=== PATIENT | female | born 1945 | race Two or more races ===

== ENCOUNTER 2019-09-24 06:02 | Inpatient (IN) | payer MEDICARE, MEDICAID ==
[2019-09-24] VITALS (32 sets, daily range): BP systolic 86–178; BP diastolic 35–80
[~2019-09-24] VITALS: Ht 162.6 cm; Wt 91.2 kg
--- NOTE | 2019-09-24 06:15 | NUR ---
kailash from dialysis center reporting low BP during HD. pt received 18 min of dialysis w/ no output. pt vant dependent, trach and gt in place. w/ HD access on the TRUDI. no bleeding noted at this time. placed on a monitor . RT was called
[2019-09-24] MEDS ORDERED: IV NS 0.9% 500 ML BAG IV ONE ×2 (06:30→08:00)
[2019-09-24 06:31] LABS: BASOPHILS # (AUTO) 0.1 /CMM (0.0-0.2); BASOPHILS % (AUTO) 0.3 % (0.0-2.0); HEMATOCRIT 31 % (33-45); LYMPHOCYTES # (AUTO) 1.1 /CMM (0.8-4.8); LYMPHOCYTES % (AUTO) 3.4 % (20.0-44.0); MEAN CORPUSCULAR HGB CONC 32 g/dl (31.0-36.0); MEAN CORPUSCULAR VOLUME 92 fL (82-100); MONOCYTES # (AUTO) 2.8 /CMM (0.1-1.30); MONOCYTES % (AUTO) 8.2 % (2.0-12.0); NEUTROPHILS % (AUTO) 88.1 % (43.0-81.0); PLATELET COUNT (AUTO) 119 /CMM (150-450); RED BLOOD CELL COUNT(AUTO) 3.35 MIL/uL (4.0-5.2)
[2019-09-24] MEDS ORDERED: PIPERACILLIN /TAZOBACTAM 3.375 G VIAL IV ONE (06:45)
[2019-09-24] MEDS ORDERED: VANCOMYCIN 1 GM VIAL ONE (06:46)
[2019-09-24 06:50] LABS: ALANINE AMINOTRANSFERASE 15 U/L (12-78); ALBUMIN 3.3 g/dL (3.4-5.0); ALKALINE PHOSPHATASE 233 U/L (46-116); ASPARTATE AMINOTRANSFERASE 14 U/L (15-37); BILIRUBIN,DIRECT 0.4 mg/dL (0.0-0.2); CALCIUM, SERUM 8.6 mg/dL (8.5-10.1); CARBON DIOXIDE 28 mmol/L (21-32); CHLORIDE 102 mmol/L (98-107); CREATININE 3.4 mg/dL (0.6-1.3); GLUCOSE 150 mg/dL (74-106); LIPASE 46 U/L (73-393); POTASSIUM 3.6 mmol/L (3.5-5.1); SODIUM SERUM 139 mmol/L (136-145); TOTAL PROTEIN, SERUM 7.2 g/dL (6.4-8.2); UREA NITROGEN, BLOOD 37 mg/dL (7-18)
--- NOTE | 2019-09-24 06:50 | NUR ---
end time for zosyn: 0720 r hand 20g
[2019-09-24] MEDS ORDERED: PIPERACILLIN /TAZOBACTAM 3.375 G in IV D5W 50 ML IV ONE (07:00)
[2019-09-24] MEDS ORDERED: VANCOMYCIN 1 GM in IV D5W 250 ML IV ONE (07:00)
--- NOTE | 2019-09-24 07:21 | NUR ---
RECEIVED REPORT FROM CHRISTINA MAN FOR JOHN, PT IS AAOX1 RESPONSIVE TO VOICE, ON MECH VENT VIA TRACH, KEPT RESTED AND COMFORTABLE, WILL CONTINUE TO MONITOR, AWAITING ROOM FOR ADMISSION.
[2019-09-24 07:28] LABS: BAND % (MANUAL) 22 % (0.0-5.0); LYMPHOCYTES % (MANUAL) 2 % (16-48); MONOCYTES % (MANUAL) 8 % (0-11.0); NEUTROPHILS % (MANUAL) 68 (42-76)
--- NOTE | 2019-09-24 07:28 | NUR ---
SECOND IV LINE ESTABLISHED, Sandra8 R AC.
--- NOTE | 2019-09-24 07:38 | NUR ---
PAGED DR. BLAISE BLANCO DIRECTOR AGENCY & STRATEGIC PARTNERSHIPS.
--- NOTE | 2019-09-24 07:50 | NUR ---
CALLED NURSING SUP FOR ICU BED.
[2019-09-24] MEDS ORDERED: IV NS 0.9% 1,000 ML BAG IV ONE (09:00)
--- NOTE | 2019-09-24 09:20 | NUR ---
AT BEDSIDE FOR EVAL
--- NOTE | 2019-09-24 09:21 | NUR ---
PT'S VITALS UPDATED. DR MENDEZ AWARE.
--- NOTE | 2019-09-24 09:25 | NUR ---
CHANGE PEEP TO 0 PER .
[2019-09-24] MEDS ORDERED: ACET-73 GT (09:31)
[2019-09-24] MEDS ORDERED: LABE100T5 GT (09:31)
[2019-09-24] MEDS ORDERED: NA P133E RC (09:31)
[2019-09-24] MEDS ORDERED: FAMO20TA8 GT (09:31)
[2019-09-24] MEDS ORDERED: SEVE800T8 GT (09:31)
[2019-09-24] MEDS ORDERED: ACET325T53 GT (09:31)
[2019-09-24] MEDS ORDERED: APIX2.5T GT (09:31)
[2019-09-24] MEDS ORDERED: BISA10SU61 RC (09:31)
[2019-09-24] MEDS ORDERED: DEXT15DR6 OP (09:31)
[2019-09-24] MEDS ORDERED: *INS NOVA SQ (09:31)
[2019-09-24] MEDS ORDERED: INSU100V7 SQ (09:31)
[2019-09-24] MEDS ORDERED: FOLI0.8T2 GT (09:31)
[2019-09-24] MEDS ORDERED: MINO2.5T GT (09:31)
--- NOTE | 2019-09-24 09:35 | NUR ---
ASSESSED PT ON BED, AAOX1 RESPONSE TO VOICE, V/S STABLE, KEPT RESTED AND COMFORTABLE, WILL CONTINUE TO MONITOR.
--- NOTE | 2019-09-24 09:43 | NUR ---
RT AT BEDSIDE FOR ABG.
[2019-09-24 09:54] LABS: ABG BASE EXCESS -1.9 mmol/L; ABG OXYGEN SATURATION 94.5 % (92.0-98.5); ABG PCO2 48.2 mmHg (35.0-45.0); ABG PH 7.321 (7.350-7.450); AaDO2 77.3 mmHg; COHb 0.9 % (0.5-1.5); MetHb 0.2 % (0.0-1.5); O2Hb 93.5 % (94.0-97.0); SITE, ABG Left Radial; VENT MODE, BG AC 10 500 30% 0
[2019-09-24 10:02] LABS: IRON, SERUM 20 ug/dl (50-175); TOTAL IRON BINDING CAPACITY 174 ug/dl (250-450)
--- NOTE | 2019-09-24 10:06 | NUR ---
ICU/RN: Pt received from ER via gurney, no distress noted, able to communicate needs. IV HL x2 on R arm patent, flushed. TRUDI AV shunt in place with C-clamp from HD center. Dr Rodríguez paged for orders. HD RN Alexis notified of dialysis pt arrival with C-clamp, RN to see pt shortly.
--- NOTE | 2019-09-24 10:06 | NUR ---
PATIENT TRANSPORTED TO ICU. HAND OFF REPORT GIVEN TO ROBERT HANKINS
[2019-09-24 10:17] LABS: FERRITIN 826 ng/mL (8-388); THYROID STIMULATING HORMONE 12.313 uIU/mL (0.358-3.74)
[2019-09-24] MEDS: HYDROCORTISONE SOD SUCCINATE 100 MG/2 ML VIAL IV SCH ×3 (10:52→16:12)
--- NOTE | 2019-09-24 10:56 | NUR ---
VENT CHANGES BELLOW MADE PER DR. PINEDA: FIO2 100% PEEP +8 Addendum: 09/24/19 at 1057 by ROBERT STOLL RT Amended: Links added.
[2019-09-24] MEDS ORDERED: PROPOFOL 100 ML IV PRN (11:00)
--- NOTE | 2019-09-24 11:00 | NUR ---
ICU/RN: Pt noted tachypneic, anxious, O2 sat in 60-70's despite airway clearance of secretions. FiO2 increased to 100%. Dr Beckman notified with orders for Diprivan, vent changes and repeat ABG. Noted and carried out.
[2019-09-24] MEDS: Z GUARD REMEDY 2 OZ OINT TP SCH (11:51)
[2019-09-24] MEDS: FLUDROCORTISONE 0.1 MG TABLET PO SCH ×2 (11:52→17:42)
[2019-09-24 12:21] LABS: ABG BASE EXCESS -2.9 mmol/L; ABG OXYGEN SATURATION 98.9 % (92.0-98.5); ABG PCO2 45.1 mmHg (35.0-45.0); ABG PH 7.327 (7.350-7.450); ABG PO2 462.5 mmHg (75.0-100.0); AaDO2 205.4 mmHg; COHb 0.3 % (0.5-1.5); MetHb 0.5 % (0.0-1.5); O2Hb 98.1 % (94.0-97.0); PEEP,BG 8 cm H2O; SITE, ABG A-Line; VT, ABG 500 mL
[2019-09-24] MEDS ORDERED: ACETAMINOPHEN 650 MG/SUPP.RECT RC PRN (12:30)
[2019-09-24] MEDS ORDERED: NOREPINEPHRINE 8 MG in IV D5W 500 ML IV PRN (12:30)
--- NOTE | 2019-09-24 12:30 | NUR ---
ICU/RN: Pt tolerating current vent settings, sedation off at this time. Breathing even and unlabored, denies pain and discomfort. Following commands, communicates needs and oriented to unit.
[2019-09-24] MEDS: PANTOPRAZOLE 40 MG VIAL IV SCH (12:49)
[2019-09-24] MEDS ORDERED: FEE PK DOSING 1 MIN EA MC ONE (12:55)
--- NOTE | 2019-09-24 12:55 | NUR ---
vent dorie k[place] per dr. darden: CESILIA 16 fio2 50% Addendum: 09/24/19 at 1256 by ROBERT STOLL RT Amended: Links added.
[2019-09-24] MEDS ORDERED: IV NS 0.9% 1,000 ML BAG IV SCH (13:00)
[2019-09-24] MEDS: MEROPENEM 500 MG in IV NS 0.9% 50 ML IV SCH (13:58)
--- NOTE | 2019-09-24 14:00 | NUR ---
ICU/RN: S/P Midline insertion. Pt hemodynamically stable. TRUDI AV shunt bruit and thrill present. Son at bedside. Questions answered. Pt turned and repositioned for comfort and skin protection.
[2019-09-24] MEDS: LACTOBACILLUS RHAMNOSUS GG 1 EACH CAP.SPRINK PO SCH (16:12)
[2019-09-24] MEDS: IV NS 0.9% 1,000 ML IV PRN (17:37)
--- NOTE | 2019-09-24 18:43 | NUR ---
ICU/RN: Pt s/b Ned, MISSILE INSPECTOR for ID consult. Updated on pt status. Pt remains afebrile, no pressors required for BP management.
--- NOTE | 2019-09-24 19:39 | NUR ---
PT RECEIVED TRACHED PORTEX 8 ON MECHANICAL VENTILATION WITH NOTED SETTINGS. PT IS AWAKE AND ALERT. AMBU BAG @ BEDSIDE. SX DONE, TRACH SECURED AND PATENT. ALARMS ON AND AUDIBLE. VENT PLUGGED INTO RED OUTLET. NO SOB OR RESPIRATORY DISTRESS NOTED AT THIS TIME. WILL MONITOR T/O SHIFT.
--- NOTE | 2019-09-24 20:00 | NUR ---
Received patient awake alert and oriented and follows simple commands.No acute distress noted.SR with 1st degree AVB 73 per monitor.With trach to vent on prescribed settings well tolerated.GT clamped and kept NPO.IV hydration in progress infusing via LASHAE ML.Site intact.Anuric with TRUDI AVS positive bruit and thrill.Denies pain.Turned and repositioned to comfort offloading pressure points.Continue monitoring.
--- NOTE | 2019-09-24 22:00 | NUR ---
Patient's daughter visiting and updated of patient condition and treatment plan.All questions answered.
[2019-09-25] VITALS (32 sets, daily range): BP systolic 105–154; BP diastolic 49–74
--- NOTE | 2019-09-25 | NUR ---
Resting vs remains stable.Secretions suctioned.Turned and repositioned.
[2019-09-25] MEDS: FLUDROCORTISONE 0.1 MG TABLET PO SCH ×5 (00:15→23:25)
[2019-09-25] MEDS: IV NS 0.9% 1,000 ML IV PRN ×2 (02:32→16:21)
--- NOTE | 2019-09-25 05:10 | NUR ---
Awake VS stable.Bathed and complete linens changed.Wound care done.Oral care done. Turned and repositioned.IVF infusing well.Due medications given.Kept comfortable.
[2019-09-25 05:25] LABS: ALANINE AMINOTRANSFERASE 18 U/L (12-78); ALBUMIN 2.9 g/dL (3.4-5.0); ALKALINE PHOSPHATASE 182 U/L (46-116); ASPARTATE AMINOTRANSFERASE 13 U/L (15-37); BILIRUBIN,TOTAL 0.8 mg/dL (0.2-1.0); CALCIUM, SERUM 8.8 mg/dL (8.5-10.1); CARBON DIOXIDE 24 mmol/L (21-32); CHLORIDE 103 mmol/L (98-107); CREATININE 4.4 mg/dL (0.6-1.3); GLUCOSE 155 mg/dL (74-106); MAGNESIUM 2.1 mg/dL (1.8-2.4); PHOSPHORUS 2.4 mg/dL (2.5-4.9); SODIUM SERUM 139 mmol/L (136-145); TOTAL PROTEIN, SERUM 6.8 g/dL (6.4-8.2); UREA NITROGEN, BLOOD 48 mg/dL (7-18)
[2019-09-25 05:59] LABS: BASOPHILS % (AUTO) 0.1 % (0.0-2.0); EOSINOPHILS % (AUTO) 0.4 % (0.0-6.0); HEMATOCRIT 29 % (33-45); HEMOGLOBIN 9.2 g/dL (11.5-14.8); LYMPHOCYTES # (AUTO) 0.7 /CMM (0.8-4.8); LYMPHOCYTES % (AUTO) 2.4 % (20.0-44.0); MEAN CORPUSCULAR HGB CONC 32 g/dl (31.0-36.0); MEAN CORPUSCULAR VOLUME 93 fL (82-100); MONOCYTES # (AUTO) 1.2 /CMM (0.1-1.30); NEUTROPHILS # (AUTO) 27.5 /CMM (1.8-8.9); NEUTROPHILS % (AUTO) 93.1 % (43.0-81.0); PLATELET COUNT (AUTO) 104 /CMM (150-450); RED BLOOD CELL COUNT(AUTO) 3.11 MIL/uL (4.0-5.2); WHITE BLOOD COUNT (AUTO) 29.5 K/uL (4.3-11.0)
[2019-09-25 06:11] LABS: BAND % (MANUAL) 4 % (0.0-5.0); LYMPHOCYTES % (MANUAL) 4 % (16-48); MONOCYTES % (MANUAL) 6 % (0-11.0); NEUTROPHILS % (MANUAL) 86 (42-76)
[2019-09-25] MEDS ORDERED: NOREPINEPHRINE 8 MG in IV D5W 500 ML IV PRN (08:00)
--- NOTE | 2019-09-25 08:00 | NUR ---
ICU/RN: Pt s/b Dr Rodríguez; lab results reviewed, currently on IVF. New orders noted and carried out.
[2019-09-25] MEDS: PANTOPRAZOLE 40 MG VIAL IV SCH (08:44)
[2019-09-25] MEDS: HYDROCORTISONE SOD SUCCINATE 100 MG/2 ML VIAL IV SCH ×3 (08:44→17:09)
[2019-09-25] MEDS: Z GUARD REMEDY 2 OZ OINT TP SCH (08:45)
[2019-09-25] MEDS: LACTOBACILLUS RHAMNOSUS GG 1 EACH CAP.SPRINK PO SCH ×2 (08:45→17:06)
[2019-09-25 09:55] LABS: ABG BASE EXCESS -1.9 mmol/L; ABG OXYGEN SATURATION 98.7 % (92.0-98.5); ABG PCO2 42.5 mmHg (35.0-45.0); ABG PO2 176.5 mmHg (75.0-100.0); AaDO2 132.2 mmHg; COHb 0.3 % (0.5-1.5); MetHb 0.3 % (0.0-1.5); O2Hb 98.1 % (94.0-97.0); PEEP,BG 8 cm H2O; SITE, ABG Right Radial; VT, ABG 500 mL
[2019-09-25] MEDS: HEPARIN SODIUM, PORCINE 5000 UNITS/1 ML VIAL SQ SCH ×2 (10:00→21:07)
--- NOTE | 2019-09-25 10:00 | NUR ---
ICU/RN: Wilmer BUCIO noted, hygienic and wound care rendered.
[2019-09-25 12:46] LABS: ALBUMIN 2.9 g/dL (3.4-5.0); BILIRUBIN,DIRECT 0.3 mg/dL (0.0-0.2); BILIRUBIN,TOTAL 0.8 mg/dL (0.2-1.0); TOTAL PROTEIN, SERUM 6.7 g/dL (6.4-8.2)
[2019-09-25] MEDS ORDERED: Sodium Phosphate 7.5 MMOL in IV D5W 100 ML IV ONE (13:00)
[2019-09-25] MEDS: MEROPENEM 500 MG in IV NS 0.9% 50 ML IV SCH (13:30)
--- NOTE | 2019-09-25 13:30 | NUR ---
ICU/RN: Bed bath rendered. Tolerated well. Pt communicates needs. Family updated on pt status.
[2019-09-25] MEDS: SOD FERRIC GLUC 125 MG in IV NS 0.9% 100 ML IV SCH (15:23)
[2019-09-25] MEDS ORDERED: VANCOMYCIN 500 MG in IV D5W 100 ML IV PRN (18:00)
[2019-09-25] MEDS: NEPRO 1,000 ML BOTTLE GT PRN (18:45)
--- NOTE | 2019-09-25 18:59 | NUR ---
ICU/RN: HD RN at bedside for dialysis. Pt in no distress. TRUDI AV shunt + bruit and thrill.
--- NOTE | 2019-09-25 19:24 | NUR ---
ICU/RN: SAFIA Marino at bedside for ID consult; updated on micro results. Oncoming RN to f/u orders.
--- NOTE | 2019-09-25 19:30 | NUR ---
Received patient resting in no acute distress.Maintained on full vent support with prescribed settings. Well tolerated.SR with 1st Degree AVB.Hemodynamically stable.HD in progress just started at 1910.GT feeding in progress no residual noted.HOB elevated.Secretions suctioned PRN. Safety measures maintained. Continue monitoring.
[2019-09-25] MEDS ORDERED: VANCOMYCIN 1 GM in IV D5W 250 ML IV ONE (20:00)
[2019-09-25] MEDS: MUPIROCIN OINT 2% 22 GM TUBE SCH (21:08)
--- NOTE | 2019-09-25 21:30 | NUR ---
Patient HD finished 500 ml out per HD RNMoon.Procedure well tolerated.
[2019-09-26] VITALS (23 sets, daily range): BP systolic 132–162; BP diastolic 57–76
[2019-09-26 04:31] LABS: BASOPHILS % (AUTO) 0.2 % (0.0-2.0); HEMATOCRIT 30 % (33-45); HEMOGLOBIN 9.6 g/dL (11.5-14.8); LYMPHOCYTES # (AUTO) 0.8 /CMM (0.8-4.8); LYMPHOCYTES % (AUTO) 3.8 % (20.0-44.0); MEAN CORPUSCULAR HGB CONC 32 g/dl (31.0-36.0); MEAN CORPUSCULAR VOLUME 94 fL (82-100); MONOCYTES # (AUTO) 0.7 /CMM (0.1-1.30); MONOCYTES % (AUTO) 3.2 % (2.0-12.0); NEUTROPHILS # (AUTO) 19.8 /CMM (1.8-8.9); NEUTROPHILS % (AUTO) 92.8 % (43.0-81.0); PLATELET COUNT (AUTO) 118 /CMM (150-450); RED BLOOD CELL COUNT(AUTO) 3.15 MIL/uL (4.0-5.2); WHITE BLOOD COUNT (AUTO) 21.3 K/uL (4.3-11.0)
[2019-09-26 04:54] LABS: ALANINE AMINOTRANSFERASE 29 U/L (12-78); ALBUMIN 2.9 g/dL (3.4-5.0); ALKALINE PHOSPHATASE 207 U/L (46-116); ASPARTATE AMINOTRANSFERASE 33 U/L (15-37); BILIRUBIN,TOTAL 0.7 mg/dL (0.2-1.0); CALCIUM, SERUM 9.1 mg/dL (8.5-10.1); CARBON DIOXIDE 26 mmol/L (21-32); CHLORIDE 101 mmol/L (98-107); CREATININE 3.4 mg/dL (0.6-1.3); GLUCOSE 214 mg/dL (74-106); POTASSIUM 4.1 mmol/L (3.5-5.1); SODIUM SERUM 138 mmol/L (136-145); TOTAL PROTEIN, SERUM 6.8 g/dL (6.4-8.2); UREA NITROGEN, BLOOD 41 mg/dL (7-18)
[2019-09-26] MEDS: FLUDROCORTISONE 0.1 MG TABLET PO SCH ×3 (05:37→17:10)
[2019-09-26] MEDS: IV NS 0.9% 1,000 ML IV PRN (06:21)
--- NOTE | 2019-09-26 06:45 | NUR ---
Patient resting.No acute distress noted all throughout the night.VS remains stable. Hemodynamically stable.SR with 1st degree AVB.Bathed rendered.Oral care and trach care done.Wound care done.SR with 1st degree AVB.Tolerating gt feeding well and ivf infusing.ALL needs met.Will endorse to day shift for sujatha.
--- NOTE | 2019-09-26 07:20 | NUR ---
RN INITIAL NOTES RECEIVED PT A/OX1-2. TRACH IN PLACE. TOLERATING VENT WELL. NO RESPIRATORY DISTRESS NOTED. HOB ELEVATED. NO SIGNS OF PAIN NOTED. BRUIT AND THRILL PRESENT ON TRUDI AV SHUNT. LASHAE MIDLINE IN PLACE. IVF INFUSING. GTF IN PLACE. TOLERATING GTF WELL. NO RESIDUAL NOTED. BLE ELEVATED. REPOSITIONED. WILL MONITOR
[2019-09-26 08:37] LABS: ABG BASE EXCESS 1.4 mmol/L; ABG OXYGEN SATURATION 98.6 % (92.0-98.5); ABG PCO2 42.4 mmHg (35.0-45.0); ABG PH 7.409 (7.350-7.450); ABG PO2 158.2 mmHg (75.0-100.0); COHb 0.3 % (0.5-1.5); MetHb 0.3 % (0.0-1.5); SITE, ABG Right Radial; VENT MODE, BG AC 160500 40% +5
[2019-09-26] MEDS: PANTOPRAZOLE 40 MG VIAL IV SCH (08:38)
[2019-09-26] MEDS: LACTOBACILLUS RHAMNOSUS GG 1 EACH CAP.SPRINK PO SCH ×2 (08:38→16:34)
[2019-09-26] MEDS: Z GUARD REMEDY 2 OZ OINT TP SCH (08:39)
[2019-09-26] MEDS: MUPIROCIN OINT 2% 22 GM TUBE SCH ×2 (08:39→21:52)
[2019-09-26] MEDS: HEPARIN SODIUM, PORCINE 5000 UNITS/1 ML VIAL SQ SCH ×2 (08:40→21:51)
[2019-09-26] MEDS: HYDROCORTISONE SOD SUCCINATE 100 MG/2 ML VIAL IV SCH ×3 (09:00→16:34)
--- NOTE | 2019-09-26 09:00 | NUR ---
RN NOTES 0730 SEEN AND EXAMINED BY DR WELSH. MD AWARE OF LAB VALUES AND LATEST IMAGING RESULT. TRACH IN PLACE. TOLERATING VENT WELL. TOLERATING GTF WELL. CLEARED TO DOWNGRADE TO AMITA. WILL MONITOR 0900 SEEN AND EXAMINED BY DR PINEDA. AWARE OF ABG RESULT. PEEP DECREASED TO +5. NO RESPIRATORY DISTRESS NOTED. WILL MONITOR.
--- NOTE | 2019-09-26 09:28 | NUR ---
WOUND CARE CONSULT: PT PRESENTS WITH SACRAL STAGE 2 ULCER AND LEFT LOWER BUTTOCK STAGE 3 ULCER, PRESENT ON ADMISSION. RECOMMENDATIONS MADE FOR SKIN PROTECTION AND WOUND CARE. DISCUSSED WITH NURSING STAFF. RECOMMEND SURGICAL CONSULT FOR LEFT LOWER BUTTOCK WOUND. DR EDDY SOSA NOTIFIED OF CONSULT REQUEST. PT ON FIRST STEP [facility]. WILL SEE PRN. FONTANA IN AGREEMENT WITH PLAN OF CARE. Addendum: 09/26/19 at 0931 by JEMAL MUIR WNDNU Amended: Links added.
[2019-09-26] MEDS ORDERED: HYDROGEL DRESSING 90 GM TUBE TP PRN (09:30)
[2019-09-26] MEDS: HYDROGEL DRESSING 90 GM TUBE TP SCH (12:39)
[2019-09-26] MEDS: MEROPENEM 500 MG in IV NS 0.9% 50 ML IV SCH (13:16)
[2019-09-26] MEDS: SOD FERRIC GLUC 125 MG in IV NS 0.9% 100 ML IV SCH (14:37)
[2019-09-26] MEDS ORDERED: ALBUMIN 25% 25 GM in PREMIX 1 EA IV PRN (16:30)
[2019-09-26] MEDS: NEPRO 1,000 ML BOTTLE GT PRN (16:34)
--- NOTE | 2019-09-26 18:30 | NUR ---
RN NOTES PT TRANSFERRED TO 116-1. PT A/O, TRACH IN PLACE. NO RESPIRATORY DISTRESS NOTED. DENIES ANY PAIN. PT STABLE. REPORT GIVEN TO CHRISTINA PIEDRA. TOOK OVER PT'S CARE.
[2019-09-27] VITALS (8 sets, daily range): BP systolic 123–177; BP diastolic 67–86
[2019-09-27] MEDS: FLUDROCORTISONE 0.1 MG TABLET PO SCH ×5 (00:45→23:11)
--- NOTE | 2019-09-27 07:10 | NUR ---
AMTIA RN OPENING NOTES RECEIVED PT LYING ON BED,ALERT/ORIENTED X2 WITH VENT AND TRACH DEPEND WITH S#8 AC16 TV 500 FIO2 40% AND PEEP 5.TOLERATING WELL.NO SOB AND ACUTE DISTRESS NOTED.ON G TUBE FEEDING WITH NEPRO @45CC/HR SI RUNNING,MINIMAL GASTRIC RESIDUAL NOTED.LEFT AV SHUNT PRESENT AND RIGHT HAND G20,SL.SITE IS CLEAN,DRY AND INTACT.NO INFILTRATION NOTED.BED IS IN LOW POSITION AND LOCKED,CALL LIGHT IS WITHIN REACH.WILL CONTINUE TO MONITOR THE PT CLOSELY.
[2019-09-27 07:13] LABS: CALCIUM, SERUM 8.9 mg/dL (8.5-10.1); CARBON DIOXIDE 27 mmol/L (21-32); CHLORIDE 100 mmol/L (98-107); CREATININE 4.4 mg/dL (0.6-1.3); GLUCOSE 314 mg/dL (74-106); SODIUM SERUM 137 mmol/L (136-145); UREA NITROGEN, BLOOD 65 mg/dL (7-18)
[2019-09-27] MEDS: PANTOPRAZOLE 40 MG VIAL IV SCH (08:49)
[2019-09-27] MEDS: HYDROCORTISONE SOD SUCCINATE 100 MG/2 ML VIAL IV SCH ×3 (08:49→17:36)
[2019-09-27] MEDS: LACTOBACILLUS RHAMNOSUS GG 1 EACH CAP.SPRINK PO SCH ×2 (08:49→16:01)
[2019-09-27] MEDS: Z GUARD REMEDY 2 OZ OINT TP SCH (08:50)
[2019-09-27] MEDS: HYDROGEL DRESSING 90 GM TUBE TP SCH (08:50)
[2019-09-27] MEDS: MUPIROCIN OINT 2% 22 GM TUBE SCH ×2 (08:50→21:24)
[2019-09-27] MEDS: HEPARIN SODIUM, PORCINE 5000 UNITS/1 ML VIAL SQ SCH ×2 (08:53→21:22)
[2019-09-27 09:53] LABS: BASOPHILS % (AUTO) 0.3 % (0.0-2.0); EOSINOPHILS % (AUTO) 0.1 % (0.0-6.0); HEMATOCRIT 32 % (33-45); HEMOGLOBIN 10.1 g/dL (11.5-14.8); LYMPHOCYTES # (AUTO) 0.7 /CMM (0.8-4.8); LYMPHOCYTES % (AUTO) 5.2 % (20.0-44.0); MEAN CORPUSCULAR HGB CONC 32 g/dl (31.0-36.0); MEAN CORPUSCULAR VOLUME 94 fL (82-100); MONOCYTES # (AUTO) 0.7 /CMM (0.1-1.30); MONOCYTES % (AUTO) 5.3 % (2.0-12.0); NEUTROPHILS # (AUTO) 11.8 /CMM (1.8-8.9); NEUTROPHILS % (AUTO) 89.1 % (43.0-81.0); PLATELET COUNT (AUTO) 113 /CMM (150-450); WHITE BLOOD COUNT (AUTO) 13.2 K/uL (4.3-11.0)
--- NOTE | 2019-09-27 10:30 | NUR ---
DIRECTOR REPORT NOTES HEMODIALYSIS STARTED AT BEDSIDE.
[2019-09-27 11:44] LABS: LYMPHOCYTES % (MANUAL) 4 % (16-48); MONOCYTES % (MANUAL) 12 % (0-11.0); NEUTROPHILS % (MANUAL) 84 (42-76)
[2019-09-27] MEDS: VANCOMYCIN 500 MG in IV D5W 100 ML IV PRN (12:24)
--- NOTE | 2019-09-27 13:00 | NUR ---
NAVAL AIRCREWMAN AVIONICS NOTES CALLED THE PHARMACIST ANAID TO REPLACE SOLUMETROL IV 100MG IN OMNICELL IT IS OUT OF STOCK.
[2019-09-27] MEDS: SOD FERRIC GLUC 125 MG in IV NS 0.9% 100 ML IV SCH (13:37)
--- NOTE | 2019-09-27 14:25 | NUR ---
JUVENILE COURT LIAISON NOTES SOLUMETROL IV 100MG IS NOT REFILLED IN OMNICELL YET,CALLED THE PHARMACIST TO REFILL AGAIN.
[2019-09-27] MEDS: MEROPENEM 500 MG in IV NS 0.9% 50 ML IV SCH (14:40)
[2019-09-27] MEDS: NEPRO 1,000 ML BOTTLE GT PRN (16:07)
--- NOTE | 2019-09-27 18:56 | NUR ---
ROCKBOARD LATHER CLOSING NOTES PT IS LYING ON BED,WITH G TUBE IS IN PLACE WITH MINIMAL GASTRIC RESIDUAL NOTED.HEMODIALYSIS IS DONE AND PT TOLERATED WELL.RESPIRATION SI EVEN AND NONLABORED.NO SIGNIFICANT CHANGES NOTED I THE SHIFT.WILL ENDORSE TO KELLER MACHINE OPERATOR RN FOR JOHN.
--- NOTE | 2019-09-27 19:16 | NUR ---
RN INITIAL NOTES: RECEIVED REPORT FROM KALPANA VASQUEZ. PT IN BED, AWAKE, A/O X3 ALGERIAN SPEAKING ONLY, PT ABLE TO MOUTH WORDS AND MAKE HIS NEEDS KNOWN. [facility] VENT TRACHE DEPENDENT WITH THE FF SETTING: GONZALO #8, AC 16 TV 550, FIO2 40% AND PEEP 5. AMBU BAG AVAILABLE AT BED SIDE. ALL CLINICAL ALARMS CHECK AND AUDIBLE. BUE AND BLE SWELLING NOTED, OFFLOADED EXTREMITIES ON PILLOWS. MET WITH PT'S FAMILY AT BED SIDE. S/P HD TODAY WITH 3L OUTPUT. PT HAS TRUDI AV SHUNT IN P[LACED. LIMB ALERT POSTED. SUCTION SET UP SECURED. IV ACCESS PATENT AND FLUSHING WELL, ON HL. PT ON GTUBE FEEDING, CURRENTLY RECEIVING NEPHRO AT 45ML/HR. PT OKAY FOR ICE CHIPS ORAL GRATIFICATION PER . ON AFIB HR 59. SAFETY PRECAUTIONS FOR FALL INITIATED, CALL LIGHT IN REACH, WILL CONTINUE MONITORING PT. Addendum: 09/28/19 at 0647 by YOLANDA BORGES RN CORRECTION OF ENTRY: TV 500
--- NOTE | 2019-09-27 19:17 | NUR ---
RN INITIAL NOTES: RECEIVED REPORT FROM KALPANA VASQUEZ. PT IN BED, AWAKE, A/O X3 PITCAIRN ISLANDER SPEAKING ONLY, PT ABLE TO MOUTH WORDS AND MAKE HIS NEEDS KNOWN. MECH VENT TRACHE DEPENDENT WITH THE FF SETTING: SHILEY #8, AC 16 TV 500, FIO2 40% AND PEEP 5. AMBU BAG AVAILABLE AT BED SIDE. ALL CLINICAL ALARMS CHECK AND AUDIBLE. BUE AND BLE SWELLING NOTED, OFFLOADED EXTREMITIES ON PILLOWS. MET WITH PT'S FAMILY AT BED SIDE. S/P HD TODAY WITH 3L OUTPUT. PT HAS TRUDI AV SHUNT IN P[LACED. LIMB ALERT POSTED. SUCTION SET UP SECURED. IV ACCESS PATENT AND FLUSHING WELL, ON HL. PT ON GTUBE FEEDING, CURRENTLY RECEIVING NEPHRO AT 45ML/HR. PT OKAY FOR ICE CHIPS ORAL GRATIFICATION PER MD. ON AFIB HR 59. SAFETY PRECAUTIONS FOR FALL INITIATED, CALL LIGHT IN REACH, WILL CONTINUE MONITORING PT.
--- NOTE | 2019-09-27 20:40 | NUR ---
RN NOTES: PT'S ABDOMEN IS SOFT TO TOUCH WITH ACTIVE BOWEL SOUND HEARD UPON AUSCULTATION. GTUBE IN PLACED, NO RESIDUAL OBTAINED. PT RECEIVING NEPHRO AT 45ML/HR.
--- NOTE | 2019-09-27 21:00 | NUR ---
RN NOTES: PER HVAC MAINTENANCE TECHNICIAN PT'S HR WENT DOWN TO 40, TWICE. WENT TO CHECK ON PT. PT AWAKE, ABLE TO MOUTH WORDS CURRENTLY WATCHING TV. DENIES ANY HEAD ACHE DIZZINESS OR LIGHT HEADEDNESS. WILL CONTINUE TO MONITOR
--- NOTE | 2019-09-27 21:15 | NUR ---
RN NOTES: NOTED MIDLINE DRESSING CAME OUT, DRESSING CHANGE PROVIDED USING CENTRAL LINE TECHNIQUE. NEW TEGARDERM DRESSING APPLIED. PLACED ON HL.
--- NOTE | 2019-09-27 23:52 | NUR ---
RN NOTES: NOTIFIED MD SIGN HANGER REGARDING PT'S HR AND BP, AWAITING CALL BACK. COMPLIANCE LEAD FLOYD FOLLOWED UP WITH FACILITY PT DOES NOT HAVE ANY BREATHING TREATMENT ORDER. PER FACILITY THEY WILL FAX THE MED LIST ORDER OF THE PT.
[2019-09-28] VITALS (7 sets, daily range): BP systolic 152–173; BP diastolic 59–75
--- NOTE | 2019-09-28 00:02 | NUR ---
RN NOTES: PER MD BURNS T/O TO "GIVE HYDRALAZINE 10MG IV Q6HRS PRN FOR SBP OVER 160, AND CARDIO CONSULT IN AM FOR LOW HR." ORDER READ BACK VERIFIED AND CARRIED OUT.
[2019-09-28] MEDS: hydrALAZINE HCL IV 20 MG VIAL IV PRN ×2 (00:21→13:25)
--- NOTE | 2019-09-28 00:21 | NUR ---
PRN HYDRALAZINE: PRN HYDRALAZINE 10 MG IVP ADMINISTERED FOR BP 169/65 HR 62. PT ON TELE MONITORING AFIB HR 62. WILL CONTINUE TO MONITOR AND REASSESS PT
--- NOTE | 2019-09-28 03:13 | NUR ---
RN NOTES: VOLCANOLOGY TEACHER FLODY CONTACTED [facility] REGARDING PT'S MED LIST, WAS TOLD BY RN THAT PT WAS ON Q4HRS BREATHING TREATMENT OF 2.5 ALBUTEROL AND 0.5 ATROVENT IN THE FACILITY. NOTHING WAS DOCUMENTED IN EMAR. PT NOTED TO HAVE THICK SECRETIONS UPON SUCTIONING. NOTIFIED MD CALENDER WIND UP TENDER, PER MD T/O OKAY TO GIVE 2.5MG ALBUTEROL NEB Q4HRS AND 0.5MG ATROVENT NEB Q4HRS SCHEDULE". ORDER READ BACK AND CARRIED OUT.
[2019-09-28] MEDS ORDERED: IPRATROPIUM NEB FS 0.5 MG/2.5 ML AMPUL.NEB NEB SCH (03:30)
[2019-09-28] MEDS ORDERED: ALBUTEROL FS 2.5 MG/3 ML VIAL.NEB NEB SCH (03:30)
--- NOTE | 2019-09-28 03:43 | NUR ---
RN NOTES: RECEIVED FAXED FROM [facility] REGARDING PT'S NEBULIZATION TREATMENT: WRITTEN FOLLOWS: 2.5 MG ALBUTEROL WITH 0.5 MG ATROVENT Q3HRS PRN FOR SOB 2.5 MG ALBUTEROL WITH 0.5 MG ATROVENT Q6HRS FOR BRONCHODILATION R/T CHRONIC RESPIRATORY FAILURE MD ROTARY ENGRAVER MADE AWARE. PER MD T/O OKAY TO CONTINUE THOSE MEDICATIONS/NEBULIZATION. ORDER READ BACK, VERIFIED AND CARRIED OUT.
[2019-09-28] MEDS ORDERED: ALBUTEROL FS 2.5 MG/0.5 ML VIAL.NEB NEB PRN ×2 (04:00)
[2019-09-28] MEDS: FLUDROCORTISONE 0.1 MG TABLET PO SCH ×3 (05:13→17:16)
--- NOTE | 2019-09-28 05:52 | NUR ---
PATIENT RECEIVED ON TRACH TO VENT WITH SETTINGS OF AC 16, 500 VT, 40%, +5. SUCTIONED WITH LAVAGE FOR MINIMAL, THIN, WHITE SECRETIONS. GIVEN IN-LINE TREATMENT WITH NO ADVERSE REACTIONS. AMBU BAG AT BEDSIDE. VENT AND PULSE OXIMETER ALARMS AUDIBLE AND VISIBLE. VENT PLUGGED INTO RED OUTLET. Addendum: 09/28/19 at 0553 by ROSIE HYATT RT Amended: Links added.
--- NOTE | 2019-09-28 06:45 | NUR ---
EOSS: PT TOLERATED [facility] VENT SETTING WELL. CONNECTED ON CONTINUOS PULSE OXIMETRY, SPO2 100% HR 59. REMAINS ON AFIB HR 59 LOWEST HR 39, MD AWARE. IV ACCESS REMAINS PATENT AND FLUSHING WELL, ON HL. BLE AND BUE OFFLOADED ON PILLOWS. PT TOLERATED G-TUBE FEEDING WELL, NO RESIDUAL OBTAINED. WOUND CARE DRESSING PROVIDED. ALL SUCTION SET UP AND TUBINGS CHANGED. PT REMAINS AFEBRILE. VS REMAINS STABLE, NEEDS ATTENDED. AWAITING CARNEY EVAL. CONTINUE IV ATB PER ID. LEE SCHEDULED. SAFETY PRECAUTIONS FOR FALL REMAINS ENGAGED, CALL LIGHT IN REACH, WILL ENDORSE TO DAY RN FOR CONTINUITY OF CARE.
--- NOTE | 2019-09-28 07:15 | NUR ---
CHAR CONVEYOR TENDER NOTES PATIENT IN BED ALERT ORIENTED X 3, ABLE TO MOUTH WORDS. ON MECHANICAL VENTILATOR, PATIENT TOLERATING SETTING.NO ACUTE DISTRESS NOTED, BREATHING UNLABORED. IV ACCESS PATENT AND INTACT, NO REDNESS, NO SWELLING NOTED. GT FEEDING RUNNING NEPHRO AT 45 CC/ HR ,TOLERATING WELL. HEAD OF BED ELEVATED. SAFETY MEASURES IN PLACE. CALL LIGHT WITHIN REACH. WILL CONTINUE TO MONITOR ACCORDINGLY.
[2019-09-28] MEDS: LACTOBACILLUS RHAMNOSUS GG 1 EACH CAP.SPRINK PO SCH ×2 (08:55→17:15)
[2019-09-28] MEDS: PANTOPRAZOLE 40 MG VIAL IV SCH (08:55)
[2019-09-28] MEDS: MUPIROCIN OINT 2% 22 GM TUBE SCH ×2 (08:56→22:16)
[2019-09-28] MEDS: HYDROGEL DRESSING 90 GM TUBE TP SCH (08:57)
[2019-09-28] MEDS: Z GUARD REMEDY 2 OZ OINT TP SCH (08:57)
[2019-09-28] MEDS: HYDROCORTISONE SOD SUCCINATE 100 MG/2 ML VIAL IV SCH ×3 (08:58→17:16)
[2019-09-28] MEDS: HEPARIN SODIUM, PORCINE 5000 UNITS/1 ML VIAL SQ SCH (08:58)
[2019-09-28 10:28] LABS: CALCIUM, SERUM 9.4 mg/dL (8.5-10.1); CARBON DIOXIDE 18 mmol/L (21-32); CHLORIDE 99 mmol/L (98-107); CREATININE 4.6 mg/dL (0.6-1.3); POTASSIUM 4.7 mmol/L (3.5-5.1); SODIUM SERUM 136 mmol/L (136-145); UREA NITROGEN, BLOOD 76 mg/dL (7-18)
[2019-09-28 10:30] LABS: GLUCOSE 491 mg/dL (74-106)
--- NOTE | 2019-09-28 10:40 | NUR ---
ORTHODONTIST ASSISTANT NOTES NOTIFIED DR YING PRESENT ON THE FLOOR REGARDING ELEVATED GLUCOSE LEVEL 491 AND MEDICATION RECONCILIATION.
[2019-09-28] MEDS: SEVELAMER CARBONATE 800 MG TABLET PO SCH ×2 (13:28→17:16)
[2019-09-28] MEDS: SOD FERRIC GLUC 125 MG in IV NS 0.9% 100 ML IV SCH (13:30)
[2019-09-28] MEDS: MEROPENEM 500 MG in IV NS 0.9% 50 ML IV SCH (14:37)
[2019-09-28] MEDS: NEPRO 1,000 ML BOTTLE GT PRN (16:35)
[2019-09-28] MEDS: APIXABAN 2.5 MG TABLET GT SCH (17:44)
--- NOTE | 2019-09-28 18:48 | NUR ---
DATABASE MANAGEMENT SYSTEM SPECIALIST NOTES PATIENT IN BED ALERT ORIENTED X 3, ABLE TO MOUTH WORDS. ON MECHANICAL VENTILATOR, PATIENT TOLERATING SETTING.NO ACUTE DISTRESS NOTED, BREATHING UNLABORED. IV ACCESS PATENT AND INTACT, NO REDNESS, NO SWELLING NOTED. GT FEEDING RUNNING NEPHRO AT 45 CC/ HR ,TOLERATING WELL. HEAD OF BED ELEVATED. WOUND CARE DONE. TURN AND REPOSITIONED EVERY 2 HOURS AND NEEDED.SAFETY MEASURES IN PLACE. CALL LIGHT WITHIN REACH. WILL ENDORSE TO NIGHT NURSE FOR CONTINUITY OF CARE.
--- NOTE | 2019-09-28 19:20 | NUR ---
HAND HOSE CUTTER NOTE PATIENT IN BED A/O X 3. PATIENT ABLE TO MOUTH WORDS AND MAKE NEEDS KNOWN. PATIENT DENIES CHEST PAIN/ SOB. PATIENT TOLERATING VENT SETTINGS. BREATHING EVEN AND UNLABORED. PATIENT HR CONTROLLED AFIB ON THE MONITOR PATIENT IVS PATENT AND INTACT NO S/S OF INFECTION. PATIENT TOLERATING GTUBE FEEDING AT 45 ML/HR NO S/S OF ASPIRATION. RN WILL CONTINUE TO MONITOR. POC AND GOALS DISCUSSED WITH PATIENT. PATIENT VERBALIZE UNDERSTANDING. CALL LIGHT WITHIN REACH SAFETY PRECAUTIONS IN PLACE. RN WILL CONTINUE TO MONITOR.
--- NOTE | 2019-09-28 20:25 | NUR ---
CUSTOMER TRAINING SPECIALIST NOTE TRANSFER OF CARE GIVEN OVER TO KATY VASQUEZ. REPORT GIVEN AND POC ENDORSED
--- NOTE | 2019-09-28 20:26 | NUR ---
TELE/RN NOTES RECEIVED REPORT AND PT. FROM CHRISTINA MORRISSEY. RECEIVED PT. LYING IN BED RESTING, EASILY AROUSABLE TO NAME. BREATHING EVEN AND UNLABORED. PT. IS VENT/TRACH DEPENDENT. PT. IS A&O X3, ABLE TO MOUTH WORDS AND MAKE NEEDS KNOWN. NO SOB, RESPIRATORY DISTRESS OR COMPLAINTS OF PAIN NOTED AT THIS TIME. PT. WITH EXTERNAL PULMONARY DISEASE SPECIALIST PRESENT AND INTACT. CURRENT RHYTHM = AFIB HR 57. PT. WITH RIGHT UPPER ARM MIDLINE PRESENT, PATENT AND INTACT. PT. WITH RIGHT HAND 20 GAUGE IV SALINE LOCK PRESENT, PATENT AND INTACT. PT. WITH G-TUBE PRESENT, PATENT AND INTACT ADMINISTERING TO PT. NEPRO @ 45 ML/HR. BED LOCKED AND IN LOWEST POSITION, SIDE RAILS UP X3, BED ALARM ON, WILL CONTINUE TO MONITOR FOR CHANGES.
[2019-09-28] MEDS: INSULIN GLARGINE, 100 UNIT/ML CARTRIDGE SQ SCH (22:17)
[2019-09-28] MEDS ORDERED: INSULIN GLARGINE, 100 UNIT/ML CARTRIDGE SQ ONE (22:30)
[2019-09-28] MEDS ORDERED: INSULIN REGULAR, HUMAN 100 UNIT/ML 10 ML VIAL SQ ONE (22:30)
[2019-09-28] MEDS ORDERED: DEXTROSE 50%-WATER 50 ML DISP.SYRIN IV PRN (22:30)
[2019-09-28] MEDS: LABETALOL HCL (100MG) 100 MG TABLET GT SCH (22:34)
[2019-09-29] VITALS: BP 160/63
[2019-09-29] MEDS: FLUDROCORTISONE 0.1 MG TABLET PO SCH ×5 (00:36→23:13)
--- NOTE | 2019-09-29 00:53 | NUR ---
TELE/RN NOTES RECHECKING PT. BLOOD SUGAR 2 HOURS POST ADMINISTRATION OF REGULAR INSULIN 20 UNITS AND LANTUS 30 UNITS. BLOOD SUGAR TRENDING IN THE RIGHT DIRECTION, PT. REMAINS ASYMPTOMATIC. WILL CONTINUE Q6 HOUR ACCUCHECK MONITORING.
--- NOTE | 2019-09-29 01:04 | NUR ---
TELE/RN NOTES NOTIFIED DR. BALL PT. BLOOD SUGAR IS 507 ON REPEAT ACCUCHECK. PER DR. BALL ADMINISTER TO PT. 20 UNITS REGULAR INSULIN PER PROTOCOL. PT. REMAINS ASYMPTOMATIC. WILL ADMINISTER TO PT. MEDICATION. WILL CONTINUE TO MONITOR.
[2019-09-29] MEDS: INSULIN REGULAR, HUMAN 100 UNIT/ML 3 ML VIAL SQ PRN ×5 (01:23→23:11)
[2019-09-29] MEDS: BLOOD SUGAR DIAGNOSTIC 1 EACH STRIP IN SCH ×5 (01:24→23:09)
[2019-09-29 04:00] VITALS: BP 158/62
[2019-09-29] MEDS ORDERED: BLOOD SUGAR DIAGNOSTIC 1 EACH STRIP IN SCH (04:30)
[2019-09-29 06:48] LABS: BASOPHILS % (AUTO) 0.2 % (0.0-2.0); HEMATOCRIT 33 % (33-45); HEMOGLOBIN 10.5 g/dL (11.5-14.8); LYMPHOCYTES # (AUTO) 1.2 /CMM (0.8-4.8); LYMPHOCYTES % (AUTO) 8.7 % (20.0-44.0); MEAN CORPUSCULAR HGB CONC 32 g/dl (31.0-36.0); MEAN CORPUSCULAR VOLUME 93 fL (82-100); MONOCYTES # (AUTO) 1.1 /CMM (0.1-1.30); MONOCYTES % (AUTO) 7.7 % (2.0-12.0); NEUTROPHILS # (AUTO) 11.3 /CMM (1.8-8.9); NEUTROPHILS % (AUTO) 82.4 % (43.0-81.0); PLATELET COUNT (AUTO) 121 /CMM (150-450); WHITE BLOOD COUNT (AUTO) 13.8 K/uL (4.3-11.0)
--- NOTE | 2019-09-29 06:55 | NUR ---
TELE/RN NOTES PT. IS LYING IN BED RESTING, BREATHING EVEN AND UNLABORED. PT. IS VENT/TRACH DEPENDENT. NO SOB, RESPIRATORY DISTRESS OR COMPLAINTS OF PAIN NOTED AT THIS TIME. PT. WITH EXTERNAL BEARING MAKER PRESENT AND INTACT. CURRENT RHYTHM = AFIB HR 54. PT. WITH RIGHT UPPER ARM MIDLINE PRESENT, PATENT AND INTACT. PT. WITH RIGHT HAND 20 GAUGE IV SALINE LOCK PRESENT, PATENT AND INTACT. PT. WITH G-TUBE PRESENT, PATENT AND INTACT ADMINISTERING TO PT. NEPRO @ 45 ML/HR. NO S/S OF HYPO/HYPERGLYCEMIA NOTED AT THIS TIME AND THROUGHOUT MY SHIFT. ALL PT. NEEDS MET. PT. OFFLOADED, TURNED AND REPOSITIONED Q2H AND NEEDED. BED LOCKED AND IN LOWEST POSITION, SIDE RAILS UP X3, BED ALARM ON, WILL ENDORSE TO DAYSHIFT NURSE FOR CONTINUITY OF CARE.
[2019-09-29 07:08] LABS: CALCIUM, SERUM 8.9 mg/dL (8.5-10.1); CARBON DIOXIDE 25 mmol/L (21-32); CHLORIDE 97 mmol/L (98-107); CREATININE 5.2 mg/dL (0.6-1.3); MAGNESIUM 2.3 mg/dL (1.8-2.4); PHOSPHORUS 2.5 mg/dL (2.5-4.9); POTASSIUM 4.2 mmol/L (3.5-5.1); SODIUM SERUM 133 mmol/L (136-145)
[2019-09-29 07:11] LABS: UREA NITROGEN, BLOOD 93 mg/dL (7-18)
--- NOTE | 2019-09-29 07:18 | NUR ---
TELE/RN OPENING NOTES RECEIVED REPORT FROM [facility] SHIFT NURSE. PT IS LYING IN BED, VENT/TRACH DEPENDENT, TOLERATING SETTINGS WELL, BREATHING EVEN AND UNLABORED, NO SIGNS OF RESPIRATORY DISTRESS NOTED. ON STONE ENGRAVER AFIB HR 56. RIGHT UPPER ARM MIDLINE PRESENT, PATENT AND INTACT. IV SITE ON RIGHT HAND 20 GAUGE SALINE LOCK PRESENT, PATENT AND INTACT. G-TUBE PRESENT, NEPHRO INFUSING AT 45ML/HR, PT TOLERATING FEEDING WELL. BED IN LOW POSITION, LOCKED, CALL LIGHT WITHIN REACH. WILL CONTINUE TO MONITOR CLOSELY.
[2019-09-29 07:41] LABS: GLUCOSE 358 mg/dL (74-106)
--- NOTE | 2019-09-29 07:41 | NUR ---
RECEIVED CALL FROM LAB WITH CRITICAL RESULT OF GLUCOSE 358, SPOKE WITH WANG
[2019-09-29 08:00] VITALS: BP 173/58
[2019-09-29] MEDS: VIT B CMPLX 3/FA/VIT C/BIOTIN 1 TAB TABLET PO SCH (08:27)
[2019-09-29] MEDS: SEVELAMER CARBONATE 800 MG TABLET PO SCH ×3 (08:27→17:21)
[2019-09-29] MEDS: LACTOBACILLUS RHAMNOSUS GG 1 EACH CAP.SPRINK PO SCH ×2 (08:27→16:13)
[2019-09-29] MEDS: HYDROCORTISONE SOD SUCCINATE 100 MG/2 ML VIAL IV SCH ×3 (08:28→16:13)
[2019-09-29] MEDS: LABETALOL HCL (100MG) 100 MG TABLET GT SCH ×3 (08:28→20:54)
[2019-09-29] MEDS: PANTOPRAZOLE 40 MG VIAL IV SCH (08:28)
[2019-09-29] MEDS: APIXABAN 2.5 MG TABLET GT SCH ×2 (08:29→16:15)
[2019-09-29] MEDS: MUPIROCIN OINT 2% 22 GM TUBE SCH ×2 (08:30→20:54)
[2019-09-29] MEDS: HYDROGEL DRESSING 90 GM TUBE TP SCH (08:30)
[2019-09-29] MEDS: Z GUARD REMEDY 2 OZ OINT TP SCH (08:30)
[2019-09-29 08:36] LABS: BAND % (MANUAL) 5 % (0.0-5.0); LYMPHOCYTES % (MANUAL) 13 % (16-48); METAMYELOCYTES % 3 % (0-0); MONOCYTES % (MANUAL) 7 % (0-11.0); MYELOCYTES % 6 % (0-0); NEUTROPHILS % (MANUAL) 66 (42-76)
--- NOTE | 2019-09-29 10:03 | NUR ---
HELD 0900 BP MEDICATION LABETALOL DUE TO PT RECEIVING DIALYSIS
[2019-09-29 12:00] VITALS: BP_SYST 107; BP_SYST 155; BP_DIAS 38; BP_DIAS 61
[2019-09-29 12:38] LABS: ABG OXYGEN SATURATION 98.3 % (92.0-98.5); ABG PCO2 39.6 mmHg (35.0-45.0); ABG PH 7.396 (7.350-7.450); AaDO2 85.7 mmHg; COHb 0.3 % (0.5-1.5); MetHb 0.7 % (0.0-1.5); O2Hb 97.3 % (94.0-97.0); PEEP,BG 5 cm H2O; SITE, ABG Right Radial; VENT MODE, BG AC 16 500 +5 40%; VT, ABG 500 mL
[2019-09-29] MEDS: MEROPENEM 500 MG in IV NS 0.9% 50 ML IV SCH (14:27)
[2019-09-29] MEDS: VANCOMYCIN 500 MG in IV D5W 100 ML IV PRN ×3 (15:57→16:02)
[2019-09-29 16:00] VITALS: BP_SYST 107; BP_SYST 162; BP_DIAS 36; BP_DIAS 58
[2019-09-29] MEDS: SOD FERRIC GLUC 125 MG in IV NS 0.9% 100 ML IV SCH (16:04)
--- NOTE | 2019-09-29 19:30 | NUR ---
CRM COORDINATOR NOTE: RECEIVED PT ON BED ALERT AND ORIENTED X2, ABLE TO MOUTH WORDS. NO APPARENT DISTRESS NOTED. NO COMPLAINTS OF PAIN OR DISCOMFORT AT THIS TIME. ON [facility] VENT, SETTINGS ORDERED. NO SOB NOTED. SATURATING WELL. ON TELE MONITOR AFIB HR 55BPM. GT INTACT AND PATENT, GTF NEPRO AT 45ML/HR, NO RESIDUAL NOTED. KEPT CLEAN, DRY AND COMFORTABLE. SAFETY AND FALL PRECAUTIONS OBSERVED AND MAINTAINED. WILL CONTINUE TO MONITOR PT.
[2019-09-29 20:00] VITALS: BP 135/70
--- NOTE | 2019-09-29 20:10 | NUR ---
TELE/RN CLOSING NOTES PT IN BED, VENT/TRACH DEPENDENT, TOLERATING SETTINGS WELL, BREATHING EVEN AND UNLABORED, NO SIGNS OF RESPIRATORY DISTRESS NOTED. ON MEDIA LIAISON OFFICER AFIB HR 58. RIGHT UPPER ARM MIDLINE PRESENT, PATENT AND INTACT. IV SITE ON RIGHT HAND 20 GAUGE SALINE LOCK PRESENT, PATENT AND INTACT. G-TUBE PRESENT, NEPHRO INFUSING AT 45ML/HR, PT TOLERATING FEEDING WELL. BED IN LOW POSITION, LOCKED, CALL LIGHT WITHIN REACH. ENDORSED TO NOC SHIFT NURSE.
[2019-09-29] MEDS: NEPRO 1,000 ML BOTTLE GT PRN (20:54)
--- NOTE | 2019-09-29 20:55 | NUR ---
STREET LIGHT INSPECTOR NOTE: LABETALOL NOT GIVEN, HR 55BPM. WILL CONTINUE TO MONITOR PT.
[2019-09-29] MEDS: INSULIN GLARGINE, 100 UNIT/ML CARTRIDGE SQ SCH (23:10)
[2019-09-30] VITALS: BP 159/63
[2019-09-30 04:00] VITALS: BP_SYST 158; BP_SYST 163; BP_DIAS 60; BP_DIAS 62
[2019-09-30] MEDS: FLUDROCORTISONE 0.1 MG TABLET PO SCH (05:17)
[2019-09-30] MEDS: INSULIN REGULAR, HUMAN 100 UNIT/ML 3 ML VIAL SQ PRN ×3 (05:17→18:14)
[2019-09-30] MEDS: BLOOD SUGAR DIAGNOSTIC 1 EACH STRIP IN SCH ×3 (05:17→18:21)
--- NOTE | 2019-09-30 06:43 | NUR ---
THERAPIST RADIATION NOTE: NO CHANGES NOTED THROUGHOUT THE SHIFT. NO APPARENT DISTRESS NOTED. DENIES PAIN AND DISCOMFORT AT THIS TIME. ON [facility] VENT, NO SOB NOTED. AFIB CONTROLLED ON TELE MONITOR HR 61 BPM. GT INTACT AND PATENT, NO RESIDUAL NOTED. RIGHT UPPER ARM MIDLINE AND RIGHT HAND #20 INTACT AND PATENT, FLUSHING WELL. KEPT CLEAN, DRY AND COMFORTABLE. SAFETY AND FALL PRECAUTIONS OBSERVED AND MAINTAINED. WILL ENDORSE TO DAY SHIFT RN FOR CONTINUITY OF CARE.
--- NOTE | 2019-09-30 07:13 | NUR ---
RT Pt received trached on the vent with noted settings. Pt is awake and alert. No SOB or respiratory distress noted. Addendum: 09/30/19 at 0716 by SMILEY JEAN RT Amended: Links added.
--- NOTE | 2019-09-30 07:52 | NUR ---
RN OPENING NOTES RECEIVED PATIENT AWAKE AND RESTING IN BED COMFORTABLY. SHE IS AOX2, NON-VERBAL (MOUTHS WORDS IN AZERI), AND BEDBOUND. SHE HAS SHILEY 8 TRACH AND IS ON MECHANICAL VENTILATOR, TOLERATING SETTINGS WELL, NO S/SX OF RESP DISTRESS OR SOB. TELE MONITOR SHOWING A-FIB, CONTROLLED. PATIENT HAS EDEMA ON UPPER AND LOWER EXTREMITIES. WOUNDS WILL BE ADDRESSED ACCORDING TO WOUND CARE PLAN. GTUBE IS INTACT, INFUSING NEPRO AT 45 ML/HR, NO RESIDUAL. TRUDI AV SHUNT IS INTACT. LUNGS ARE CLEAR. LASHAE MIDLINE AND RHAND 20 G ARE PATENT AND INTACT. SAFETY MEASURES HAVE BEEN IMPLEMENTED, CALL LIGHT IS WITHIN REACH, BED IS IN LOWEST AND LOCKED POSITION, SIDE RAILS UP X2, WILL CONTINUE TO MONITOR FOR ANY CHANGES.
[2019-09-30 08:00] VITALS: BP 151/75
[2019-09-30] MEDS: SEVELAMER CARBONATE 800 MG TABLET PO SCH ×3 (08:38→18:13)
[2019-09-30] MEDS: Z GUARD REMEDY 2 OZ OINT TP SCH (09:00)
[2019-09-30] MEDS: LACTOBACILLUS RHAMNOSUS GG 1 EACH CAP.SPRINK PO SCH ×2 (09:13→16:59)
[2019-09-30] MEDS: LABETALOL HCL (100MG) 100 MG TABLET GT SCH ×3 (09:14→21:21)
[2019-09-30] MEDS: VIT B CMPLX 3/FA/VIT C/BIOTIN 1 TAB TABLET PO SCH (09:14)
[2019-09-30 09:15] LABS: CARBON DIOXIDE 31 mmol/L (21-32); CHLORIDE 100 mmol/L (98-107); CREATININE 4.5 mg/dL (0.6-1.3); GLUCOSE 189 mg/dL (74-106); POTASSIUM 3.7 mmol/L (3.5-5.1); SODIUM SERUM 139 mmol/L (136-145); UREA NITROGEN, BLOOD 79 mg/dL (7-18)
[2019-09-30] MEDS: APIXABAN 2.5 MG TABLET GT SCH ×2 (09:16→16:59)
[2019-09-30] MEDS: HYDROCORTISONE SOD SUCCINATE 100 MG/2 ML VIAL IV SCH ×2 (09:17→16:58)
[2019-09-30] MEDS: PANTOPRAZOLE 40 MG VIAL IV SCH (09:17)
[2019-09-30] MEDS: MUPIROCIN OINT 2% 22 GM TUBE SCH ×2 (09:17→21:00)
[2019-09-30] MEDS: HYDROGEL DRESSING 90 GM TUBE TP SCH (09:18)
[2019-09-30 12:00] VITALS: BP 158/66
[2019-09-30] MEDS: MEROPENEM 500 MG in IV NS 0.9% 50 ML IV SCH (14:02)
[2019-09-30 16:00] VITALS: BP 183/61
--- NOTE | 2019-09-30 19:37 | NUR ---
RN CLOSING NOTES PATIENT IS RESTING IN BED COMFORTABLY AT THIS TIME. NO ACUTE CHANGES OCCURRED THROUGHOUT THE SHIFT, PT NEEDS HAVE BEEN MET. SAFETY MEASURES HAVE BEEN IMPLEMENTED, CALL LIGHT IS WITHIN REACH, BED IS IN LOWEST AND LOCKED POSITION, SIDE RAILS UP X2. PT HAS BEEN ENDORSED TO NIGHTSHIFT RN FOR CONTINUITY OF CARE.
--- NOTE | 2019-09-30 19:45 | NUR ---
SERVICE PARTS COORDINATOR OPENING NOTES RECEIVED PATIENT IN BED, ALERT AND ORIENTED X2-3, MALAYSIAN SPEAKER, ABLE TO MOUTH WORDS. BREATHING EVEN AND UNLABORED. NO SOB NOTED - ON TRACH WITH ORDERED SETTINGS. AFIB LOW 60s ON TELE MONITOR. NO COMPLAINTS OF PAIN OR DISCOMFORT. NO FACIAL GRIMACING. PATIENT WITH TRUDI AV SHUNT - DRESSING C/D/I. ALSO WITH LASHAE MIDLINE INTACT AND PATENT. PATIENT ON TUBE FEEDING, NEPHRO AT 45ML'HR. TOLERATING WELL WITH NO RESIDUAL NOTED. BUE/BLE EDEMA NOTED - SPECIFICALLY LEFT ARM - ELEVATED ON PILLOW. SKIN DRY AND WARM TO TOUCH. AFEBRILE. ALL OTHER NEEDS ATTENDED TO. ALL ALARMS CHECKED AND AUDIBLE. SAFETY MEASURES IN PLACE. CALL LIGHT WITHIN REACH. WILL CONTINUE TO MONITOR.
--- NOTE | 2019-09-30 19:45 | NUR ---
PT RECEIVED TRACHED PORTEX 8 ON MECHANICAL VENTILATION WITH NOTED SETTINGS. PT IS AWAKE AND ALERT. AMBU BAG @ BEDSIDE. SX DONE, TRACH SECURED AND PATENT. ALARMS ON AND AUDIBLE. VENT PLUGGED INTO RED OUTLET. NO SOB OR RESPIRATORY DISTRESS NOTED AT THIS TIME. WILL MONITOR T/O SHIFT.
[2019-09-30 20:00] VITALS: BP 161/58
--- NOTE | 2019-09-30 20:58 | NUR ---
NOVELTY CHAIN MAKER NOTES LABETALOL NOT GIVEN. CURRENT HR 58 WITH TENDENCY TO GO IN THE 40s WHEN SLEEPING. WILL CONTINUE TO MONITOR. Addendum: 09/30/19 at 2120 by SYED SPENCE RN SPOKE WITH DR. RODARTE ON THE PHONE REGARDING CURRENT HR OF 55 ON TELE MONITOR AND HOLDING LABETALOL. PER DR. RODARTE, OK TO GIVE LABETALOL. HOLD IF HR IS LESS THAN 50. WILL GIVE MEDICATION AND CONTINUE TO MONITOR.
[2019-09-30] MEDS: INSULIN GLARGINE, 100 UNIT/ML CARTRIDGE SQ SCH (21:09)
[2019-10-01] VITALS (8 sets, daily range): BP systolic 140–162; BP diastolic 51–80
[2019-10-01] MEDS: BLOOD SUGAR DIAGNOSTIC 1 EACH STRIP IN SCH ×5 (00:15→23:25)
[2019-10-01] MEDS: INSULIN REGULAR, HUMAN 100 UNIT/ML 3 ML VIAL SQ PRN ×5 (00:17→23:33)
[2019-10-01] MEDS: NEPRO 1,000 ML BOTTLE GT PRN (05:18)
--- NOTE | 2019-10-01 06:27 | NUR ---
EDGE WORKER CLOSING NOTES PATIENT RESTING IN BED. NO ACUTE CHANGES THROUGHOUT SHIFT. BREATHING EVEN AND UNLABORED. NO SOB NOTED - ON TRACH WITH ORDERED SETTINGS. AFIB LOW 60s ON TELE MONITOR. WITH EPISODES OF AMAN IN THE 40S WHILE SLEEPING. NO COMPLAINTS OF PAIN OR DISCOMFORT. NO FACIAL GRIMACING. PATIENT WITH TRUDI AV SHUNT - DRESSING C/D/I. ALSO WITH LASHAE MIDLINE INTACT AND PATENT. PATIENT ON TUBE FEEDING, NEPHRO AT 45ML'HR. TOLERATING WELL WITH NO RESIDUAL NOTED THROUGHOUT SHIFT. REMAINED AFEBRILE. DRESSINGS ON BUTTOCKS/SACRAL CHANGED. ALL OTHER NEEDS ATTENDED TO. ALL ALARMS CHECKED AND AUDIBLE. SAFETY MEASURES IN PLACE. CALL LIGHT WITHIN REACH. WILL ENDORSE TO ONCOMING NURSE FOR JOHN.
--- NOTE | 2019-10-01 07:15 | NUR ---
COLOR MAKER DYER NOTES OPENING PATIENT IS AWAKE IN BED, ABLE TO UNDERSTAND THE INSTRUCTION. NONVERBAL ON TRACH. A/OX2 , NO DISCOMFORT OR SOB NOTED AT THIS TIME. SHE IS AFIB 54 ON THE MONITOR. PATIENT ON GTUBE RUNNING NEPHRO @45 ML/H. RU MIDLINE FLUSHED WELL . LEFT AV SHUNT PALPATED. NO RESIDUAL NOTED FROM GTUBE, TOLERATING WELL. CALL LIGHT WITHIN REACH AND BED AT THE LOWEST POSITION.
[2019-10-01 07:16] LABS: CALCIUM, SERUM 9.2 mg/dL (8.5-10.1); CARBON DIOXIDE 26 mmol/L (21-32); CHLORIDE 98 mmol/L (98-107); CREATININE 5.3 mg/dL (0.6-1.3); GLUCOSE 203 mg/dL (74-106); POTASSIUM 3.9 mmol/L (3.5-5.1); SODIUM SERUM 135 mmol/L (136-145)
[2019-10-01 07:21] LABS: UREA NITROGEN, BLOOD 90 mg/dL (7-18)
[2019-10-01] MEDS: APIXABAN 2.5 MG TABLET GT SCH ×2 (09:00→18:39)
[2019-10-01] MEDS: LABETALOL HCL (100MG) 100 MG TABLET GT SCH ×2 (09:00→18:54)
[2019-10-01] MEDS: LACTOBACILLUS RHAMNOSUS GG 1 EACH CAP.SPRINK PO SCH ×2 (09:28→18:40)
[2019-10-01] MEDS: SEVELAMER CARBONATE 800 MG TABLET PO SCH ×3 (09:28→18:39)
[2019-10-01] MEDS: HYDROCORTISONE SOD SUCCINATE 100 MG/2 ML VIAL IV SCH ×2 (09:29→18:40)
[2019-10-01] MEDS: VIT B CMPLX 3/FA/VIT C/BIOTIN 1 TAB TABLET PO SCH (09:29)
[2019-10-01] MEDS: PANTOPRAZOLE 40 MG VIAL IV SCH (09:29)
[2019-10-01] MEDS: MUPIROCIN OINT 2% 22 GM TUBE SCH ×2 (09:32→21:01)
[2019-10-01] MEDS: HYDROGEL DRESSING 90 GM TUBE TP SCH (09:33)
--- NOTE | 2019-10-01 09:45 | NUR ---
RETENTION SPECIALIST NOTES PATIENT WILL HAVE DIALYSIS TODAY. ELIQUESTRELLA HELD PLT WAS LOW 121. LABETALOL NOT ADMINISTRATED PT HR WAS 52 AND SHE IS SCHEDULED FOR HEMODIALYSIS.
--- NOTE | 2019-10-01 11:34 | NUR ---
RT RECEIVED PT TRACH'D ON [facility] VENT WITH SETTINGS PER MD ORDER. VIRTUAL ASSISTANT DONE. VENT PLUGGED INTO RED OUTLET. SPARE TRACH AND AMBU BAG AT HEAD OF BED. SUCTIONED AND MONITORED PRN. ALARMS ON AND AUDIBLE. PT IS AWAKE AND RESPONSIVE. NO SOB OR SIGNS OF DISTRESS NOTED AT THIS TIME. Addendum: 10/01/19 at 1805 by HALIE MEZA RT Amended: Links added.
[2019-10-01] MEDS: Z GUARD REMEDY 2 OZ OINT TP SCH (12:21)
[2019-10-01] MEDS: MEROPENEM 500 MG in IV NS 0.9% 50 ML IV SCH (14:15)
--- NOTE | 2019-10-01 15:10 | NUR ---
FOREIGN STUDENT ADVISER TEACHER NOTES PATIENT IS HAVING HEMODIALYSIS.
[2019-10-01] MEDS ORDERED: MERO500V3 IV (16:11)
[2019-10-01] MEDS ORDERED: VANC500F2 IV (16:11)
[2019-10-01 16:22] LABS: BASOPHILS # (AUTO) 0.1 /CMM (0.0-0.2); BASOPHILS % (AUTO) 0.5 % (0.0-2.0); EOSINOPHILS % (AUTO) 2.6 % (0.0-6.0); HEMATOCRIT 33 % (33-45); HEMOGLOBIN 10.5 g/dL (11.5-14.8); LYMPHOCYTES # (AUTO) 1.7 /CMM (0.8-4.8); LYMPHOCYTES % (AUTO) 11.9 % (20.0-44.0); MEAN CORPUSCULAR HGB CONC 32 g/dl (31.0-36.0); MEAN CORPUSCULAR VOLUME 94 fL (82-100); MONOCYTES # (AUTO) 1.1 /CMM (0.1-1.30); MONOCYTES % (AUTO) 7.6 % (2.0-12.0); NEUTROPHILS # (AUTO) 11.4 /CMM (1.8-8.9); NEUTROPHILS % (AUTO) 77.4 % (43.0-81.0); PLATELET COUNT (AUTO) 143 /CMM (150-450); RED BLOOD CELL COUNT(AUTO) 3.55 MIL/uL (4.0-5.2); WHITE BLOOD COUNT (AUTO) 14.7 K/uL (4.3-11.0)
--- NOTE | 2019-10-01 18:18 | NUR ---
CORPORATE COUNSEL NOTES PATIENT FINISHED HER DIALYSIS 1.5 l OUT
--- NOTE | 2019-10-01 18:54 | NUR ---
PATIENT ACCESS DIRECTOR NOTES PATIENT BLOOD PRESSURE GIVEN AFTER DIALYSIS.
--- NOTE | 2019-10-01 19:30 | NUR ---
VALET CASHIER OPENING NOTE RECIEVED PATIENT FROM KEON VASQUEZ. PATIENT IS VENT DEPENDENT, SETTINGS: SHILEY #8 , AC 16, TV 500, FIO2 40% PEEP 5. PATIENT IS A/O X2, MOUTHS WORDS, EXTERNAL TELE MONITOR READS 52-61 A FIB. GTUBE IS PRESENT, SITE HAS DRESSING, ASPIRATED NO RESIDUAL, FLUSHED 30 ML NO RESISTANCE, RUNNING NEPRO @45ML/HR. IV ACCESS IN LASHAE MIDLINE PATENT AND SALINE LOCKED, TRUDI AV SHUNT FOR HD. BED IS LOW AN DLOCKED, HOB ABOVE 50 DEGREES, SIDE RAILS UP X2, BED ALARM ON, ON KCI MATTRESS. CALL LIGHT WITHIN REACH. WILL CONTINUE TO MONITOR.
--- NOTE | 2019-10-01 19:33 | NUR ---
ELECTROCARDIOGRAM TECHNICIAN NOTES PATIENT IS A/OX4 AWAKE IN BED. NO LABORED BREATHING NOTED. IV PATENT AND NS 100ML/H RUNNING AT RIGHT AC. ALL NEEDS ATTENDED. PATIENT HAS BREATHING TREATMENT Q4 H ROUTINE. CALL LIGHT WITHIN REACH, BED AT THE LOWEST POSITION AND LOCKED. ENDORSED TO PRODUCT SAFETY MANAGER NURSE FOR JOHN. Addendum: 10/01/19 at 2016 by BEATA CESAR RN WRONG PATIENT
--- NOTE | 2019-10-01 19:33 | NUR ---
PRINT PRODUCTION MANAGER NOTES PATIENT IN BED A/OX2 NONVERBAL ON TRACH. NO SOB OR DISCOMFORT NOTED AT THIS TIME. NEPHRO IS RUNNING AT 45ML /H. RIGHT UPPER MIDLINE PATENT FLUSHED WELL. NO RESIDUAL NOTED FROM GTUBE. BED AT THE LOWEST POSITION AND LOCKED , CALL LIGHT WITHIN REACH. ENDORSED TO FRUIT AND VEGETABLE CLASSER NURSE FOR JOHN.
--- NOTE | 2019-10-01 20:25 | NUR ---
PT RECEIVED TRACHED PORTEX 8 ON MECHANICAL VENTILATION WITH NOTED SETTINGS. PT IS AWAKE , ALERT AND RESPONSIVE . AMBU BAG @ BEDSIDE. SX DONE, TRACH SECURED AND PATENT. ALARMS ON AND AUDIBLE. VENT PLUGGED INTO RED OUTLET. NO SOB OR RESPIRATORY DISTRESS NOTED AT THIS TIME. WILL MONITOR T/O SHIFT.
[2019-10-01] MEDS: INSULIN GLARGINE, 100 UNIT/ML CARTRIDGE SQ SCH (21:10)
[2019-10-02] VITALS (7 sets, daily range): BP systolic 143–157; BP diastolic 45–73
[2019-10-02] MEDS: NEPRO 1,000 ML BOTTLE GT PRN (00:48)
--- NOTE | 2019-10-02 03:53 | NUR ---
PT RECEIVE STABLE ON MV, SETTINGS ARE AC 16 500 +5 @ 30% FIO2, ALARMS ARE ON AND AUDIBLE, TRACH PATENT AND SECURED, VENT PLUG IN RED OUTLET, WILL CONTINUE TO MONITOR Addendum: 10/02/19 at 0354 by REMA KINGSLEY RT Amended: Links added.
[2019-10-02] MEDS: BLOOD SUGAR DIAGNOSTIC 1 EACH STRIP IN SCH ×4 (05:24→23:42)
[2019-10-02] MEDS: INSULIN REGULAR, HUMAN 100 UNIT/ML 3 ML VIAL SQ PRN (05:26)
[2019-10-02 06:29] LABS: BASOPHILS % (AUTO) 0.3 % (0.0-2.0); EOSINOPHILS % (AUTO) 5.7 % (0.0-6.0); HEMATOCRIT 33 % (33-45); HEMOGLOBIN 10.7 g/dL (11.5-14.8); LYMPHOCYTES # (AUTO) 1.2 /CMM (0.8-4.8); LYMPHOCYTES % (AUTO) 10.5 % (20.0-44.0); MEAN CORPUSCULAR HGB CONC 32 g/dl (31.0-36.0); MEAN CORPUSCULAR VOLUME 93 fL (82-100); MONOCYTES # (AUTO) 1.1 /CMM (0.1-1.30); NEUTROPHILS # (AUTO) 8.8 /CMM (1.8-8.9); NEUTROPHILS % (AUTO) 74.5 % (43.0-81.0); PLATELET COUNT (AUTO) 127 /CMM (150-450); RED BLOOD CELL COUNT(AUTO) 3.55 MIL/uL (4.0-5.2); WHITE BLOOD COUNT (AUTO) 11.8 K/uL (4.3-11.0)
[2019-10-02 06:49] LABS: CALCIUM, SERUM 9.1 mg/dL (8.5-10.1); CARBON DIOXIDE 29 mmol/L (21-32); CHLORIDE 98 mmol/L (98-107); CREATININE 4.7 mg/dL (0.6-1.3); GLUCOSE 173 mg/dL (74-106); POTASSIUM 3.8 mmol/L (3.5-5.1); SODIUM SERUM 135 mmol/L (136-145); UREA NITROGEN, BLOOD 73 mg/dL (7-18)
--- NOTE | 2019-10-02 07:05 | NUR ---
SENIOR PRODUCT DESIGNER NOTES RECEIVED PATIENT IN BED AWAKE/ A/OX2 MOUTHS WORDS. ON G TUBE NO RESIDUAL NOTED. HESHAM MIDLINE PATENT FLUSHED WITH NS. PT HAS LOW HR 51-53. BED AT THE LOWEST POSITION LOCKED AND CALL LIGHT WITHIN REACH.
--- NOTE | 2019-10-02 07:33 | NUR ---
LIBRARY MEDIA SPECIALIST CLOSING NOTE PATIENT IN BED. PATIENT IS VENT DEPENDEDNT, SETTINGS: SILEY #8 , AC 16, TV 500, FIO2 40% PEEP 5. PATIENT IS A/O X2, MOUTHS WORDS, EXTERNAL TELE MONITOR READS 52-61 A FIB. NO DISTRESS THROUGHOUT SHIFT. GTUBE FEEDING TOLERATED, RUNNING NEPRO @45ML/HR. IV ACCESS MAINTAINED IN LASHAE MIDLINE PATENT AND SALINE LOCKED, TRUDI AV SHUNT FOR HD. BED IS LOW AN DLOCKED, HOB ABOVE 50 DEGREES, SIDE RAILS UP X2, BED ALARM ON, ON KCI MATRESS. CALL LIGHT WITHIN REACH. WILL ENDORSE TO NEXT SHIFT.
--- NOTE | 2019-10-02 07:55 | NUR ---
RT PT RECEIVED TRACHED ON MECHANICAL VENTILATION WITH NOTED SETTINGS. PT IS AWAKE AND ALERT. VENT PLUGGED IN TO RED OUTLET, AMBU BAG AT HEAD OF BED. SPARE TRACH AT BEDSIDE. NO SOB OR RESP DISTRESS AT THIS TIME. WILL CONTINUE TO MONITOR. Addendum: 10/02/19 at 1406 by NII PAUL RT Amended: Links added.
[2019-10-02] MEDS: SEVELAMER CARBONATE 800 MG TABLET PO SCH ×3 (08:42→17:54)
[2019-10-02] MEDS: PANTOPRAZOLE 40 MG VIAL IV SCH (08:42)
[2019-10-02] MEDS: LACTOBACILLUS RHAMNOSUS GG 1 EACH CAP.SPRINK PO SCH ×2 (08:42→17:54)
[2019-10-02] MEDS: VIT B CMPLX 3/FA/VIT C/BIOTIN 1 TAB TABLET PO SCH (08:42)
[2019-10-02] MEDS: HYDROCORTISONE SOD SUCCINATE 100 MG/2 ML VIAL IV SCH ×2 (08:47→17:54)
[2019-10-02] MEDS: APIXABAN 2.5 MG TABLET GT SCH ×2 (08:51→18:08)
[2019-10-02] MEDS: LABETALOL HCL (100MG) 100 MG TABLET GT SCH ×2 (09:00→23:53)
[2019-10-02] MEDS: MUPIROCIN OINT 2% 22 GM TUBE SCH ×2 (09:01→21:00)
[2019-10-02] MEDS: HYDROGEL DRESSING 90 GM TUBE TP SCH (09:02)
[2019-10-02] MEDS: Z GUARD REMEDY 2 OZ OINT TP SCH (09:03)
--- NOTE | 2019-10-02 09:40 | NUR ---
PAIN MANAGEMENT NURSE NOTES LABETOLOL HELD PER MD ORDER
[2019-10-02] MEDS: VANCOMYCIN 500 MG in IV D5W 100 ML IV PRN (12:42)
[2019-10-02] MEDS: MEROPENEM 500 MG in IV NS 0.9% 50 ML IV SCH (13:56)
[2019-10-02] MEDS: PROSOURCE / PROSTAT (PYXIS) 30 ML UDC GT SCH (14:42)
--- NOTE | 2019-10-02 16:33 | NUR ---
EVENT TECHNICIAN NOTES STOOL SAMPLE SENT TO LAB AFTER PATIENT HAVING 3 DIARRHEA TODAY.
--- NOTE | 2019-10-02 19:40 | NUR ---
POWERHOUSE ENGINEER NOTES PATIENT IN BED AWAKE, TOLERATED GTUBE FEEDING WELL. NO SOB OR DISCOMFORT NOTED. MIDLINE PATENT. ALL NEEDS ATTENDED. NO MAJOR CHANGES DURING SHIFT. CALL LIGHT WITHIN REACH BED AT THE LOWEST POSITION. ENDORSED TO SALES CONSULTANT NURSE FOR JOHN.
--- NOTE | 2019-10-02 20:57 | NUR ---
PT RCVD GINNY'D ON MECHANICAL VENT WITH CHARTED SETTINGS. SX DONE. PT TRACH IS PATENT AND SECURE. VENT ALARMS APPEAR TO BE FUNCTIONING PROPERLY. VENT PLUGGED INTO RED OUTLET. AMBU BAG AT BEDSIDE. NO SOB NOTED. Addendum: 10/02/19 at 2056 by VERN DAMON RT Amended: Links added.
[2019-10-02] MEDS: INSULIN GLARGINE, 100 UNIT/ML CARTRIDGE SQ SCH (23:46)
[2019-10-03] VITALS: BP 162/51
[2019-10-03 04:00] VITALS: BP 153/50
[2019-10-03] MEDS: NEPRO 1,000 ML BOTTLE GT PRN (04:16)
[2019-10-03] MEDS: SEVELAMER CARBONATE 800 MG TABLET PO SCH ×3 (05:21→17:20)
[2019-10-03] MEDS: BLOOD SUGAR DIAGNOSTIC 1 EACH STRIP IN SCH ×3 (05:21→17:21)
[2019-10-03] MEDS: INSULIN REGULAR, HUMAN 100 UNIT/ML 3 ML VIAL SQ PRN ×3 (05:24→17:23)
[2019-10-03 06:43] LABS: BASOPHILS # (AUTO) 0.1 /CMM (0.0-0.2); BASOPHILS % (AUTO) 0.5 % (0.0-2.0); EOSINOPHILS % (AUTO) 11.5 % (0.0-6.0); HEMATOCRIT 32 % (33-45); HEMOGLOBIN 10.4 g/dL (11.5-14.8); LYMPHOCYTES # (AUTO) 1.5 /CMM (0.8-4.8); MEAN CORPUSCULAR HGB CONC 33 g/dl (31.0-36.0); MEAN CORPUSCULAR VOLUME 93 fL (82-100); MONOCYTES # (AUTO) 0.9 /CMM (0.1-1.30); MONOCYTES % (AUTO) 8.1 % (2.0-12.0); NEUTROPHILS # (AUTO) 7.7 /CMM (1.8-8.9); NEUTROPHILS % (AUTO) 66.9 % (43.0-81.0); PLATELET COUNT (AUTO) 120 /CMM (150-450); RED BLOOD CELL COUNT(AUTO) 3.42 MIL/uL (4.0-5.2); WHITE BLOOD COUNT (AUTO) 11.5 K/uL (4.3-11.0)
[2019-10-03 06:56] LABS: CALCIUM, SERUM 8.8 mg/dL (8.5-10.1); CARBON DIOXIDE 29 mmol/L (21-32); CHLORIDE 97 mmol/L (98-107); CREATININE 5.6 mg/dL (0.6-1.3); GLUCOSE 150 mg/dL (74-106); MAGNESIUM 2.4 mg/dL (1.8-2.4); POTASSIUM 4.5 mmol/L (3.5-5.1); SODIUM SERUM 133 mmol/L (136-145)
[2019-10-03 07:01] LABS: UREA NITROGEN, BLOOD 88 mg/dL (7-18)
--- NOTE | 2019-10-03 07:20 | NUR ---
TELE/RN OPENING NOTES RECEIVED PATIENT IN BED SLEEPING COMFORTABLY. EASILY AROUSABLE. NO PAIN OR ACUTE DISTRESS AT THIS TIME. RESPIRATION EVEN AND UNLABORED. SKIN IS DRY WARM TO TOUCH. PATIENT NOTED TO BE ON MECH VENT. ABLE TO TOLERATE CURRENT SETTINGS WELL. PATIENT IS ALERT AND ORIENTED X2. ABLE TO MAKE MOUTHS WORDS. TELE MONITOR READS AROUND 65'S. NOTED WITH GTUBE. INTACT AND PATENT. FLUSHING WELL. SITE HAS DRESSING, ASPIRATED NO RESIDUAL. NOTED WITH IV ACCESS IN LASHAE MIDLINE PATENT AND SALINE LOCKED, TRUDI AV SHUNT FOR HD. ALL NEEDS ANTICIPATED. CALL LIGHT WITHIN REACHED. SAFETY MAINTAINED. BED LOCKED AND IN LOWEST POSITION. PLAN OF CARE DISCUSSED. WILL CONTINUE TO MONITOR CLOSELY.
--- NOTE | 2019-10-03 07:30 | NUR ---
RT NOTE RECEIVED PT MECHANICALLY VENTILATED VIA CUFFED TRACHEOSTOMY TUBE. CUFF INFLATED. TRACH TUBE MIDLINE AND SECURE. VENTILATOR SETTINGS PRESCRIBED. ALARMS SET PER PROTOCOL AND AUDIBLE. VENT PLUGGED IN TO RED OUTLET. AMBU BAG AT BED SIDE. NO DISTRESS NOTED. PT AWAKE AND ALERT. Addendum: 10/03/19 at 0732 by ARACELI MAHAJAN RT Amended: Links added.
[2019-10-03 08:00] VITALS: BP 154/58
[2019-10-03] MEDS: PANTOPRAZOLE 40 MG VIAL IV SCH (08:37)
[2019-10-03] MEDS: HYDROCORTISONE SOD SUCCINATE 100 MG/2 ML VIAL IV SCH ×2 (08:37→17:20)
[2019-10-03] MEDS: LACTOBACILLUS RHAMNOSUS GG 1 EACH CAP.SPRINK PO SCH ×2 (08:38→17:20)
[2019-10-03] MEDS: VIT B CMPLX 3/FA/VIT C/BIOTIN 1 TAB TABLET PO SCH (08:38)
[2019-10-03] MEDS: LABETALOL HCL (100MG) 100 MG TABLET GT SCH ×3 (08:39→21:25)
[2019-10-03] MEDS: PROSOURCE / PROSTAT (PYXIS) 30 ML UDC GT SCH (08:43)
[2019-10-03] MEDS: Z GUARD REMEDY 2 OZ OINT TP SCH (08:43)
[2019-10-03] MEDS: HYDROGEL DRESSING 90 GM TUBE TP SCH (08:44)
[2019-10-03] MEDS: MUPIROCIN OINT 2% 22 GM TUBE SCH ×2 (08:45→21:24)
[2019-10-03] MEDS: APIXABAN 2.5 MG TABLET GT SCH ×2 (08:48→17:21)
[2019-10-03 12:00] VITALS: BP 145/55
[2019-10-03] MEDS: MEROPENEM 500 MG in IV NS 0.9% 50 ML IV SCH (13:11)
[2019-10-03] MEDS: VANCOMYCIN 500 MG in IV D5W 100 ML IV PRN (14:52)
[2019-10-03 16:00] VITALS: BP_SYST 132; BP_SYST 135; BP_DIAS 60; BP_DIAS 68
--- NOTE | 2019-10-03 18:51 | NUR ---
TELE/RN CLOSING NOTES PATIENT CONTINUES TO REMAIN IN STABLE CONDITION THROUGHOUT THE SHIFT. PROVIDED COMFORT AND SAFETY. TELE MONITOR READS AROUND 70'S. NOTED WITH GTUBE. INTACT AND PATENT. FLUSHING WELL. SITE HAS DRESSING, ASPIRATED NO RESIDUAL. NOTED WITH IV ACCESS IN LASHAE MIDLINE PATENT AND SALINE LOCKED, TRUDI AV SHUNT FOR HD. ALL NEEDS ANTICIPATED. CALL LIGHT WITHIN REACHED. SAFETY MAINTAINED. BED LOCKED AND IN LOWEST POSITION. PLAN OF CARE DISCUSSED. WILL CONTINUE TO MONITOR CLOSELY. ENDORSED TO PM NURSE FOR JOHN.
--- NOTE | 2019-10-03 19:46 | NUR ---
MANUFACTURING STOREPERSON OPENING NOTES RECEIVED PATIENT A/O X2 IN BED WITH NO SIGN OF ANY DISTRESS. PATIENT IS NON-VERBAL BUT IS ABLE TO MOUTH WORDS. PATIENT IS ON THE TRACH WITH A SHILEY #8 AC 16, TV 500, FIO2 40%, AND PEEP OF 5 PATIENT IS TOLERATING VENT WELL. PATIENT HAS A LASHAE MIDLINE PATENT AND A TRUDI AV SHUNT FOR HD. PATIENT HAS GTUBE SITE WITH NO SIGN OF ANY IRRITATION AND NEPRO RUNNING AT 45ML/HR. PATIENT IS BED REST BUT HAS MILD STRENGTH ON BOTH LOWER EXTREMITIES. HAS NON PITTING EDEMA ON HER LEFT ARM. ALL SAFETY PRECATIONS HAVE BEEN APPLIED WILL CONTINUE TO MONITOR PATIENT.
[2019-10-03 20:00] VITALS: BP 146/71
[2019-10-03] MEDS: INSULIN GLARGINE, 100 UNIT/ML CARTRIDGE SQ SCH (22:50)
[2019-10-04] VITALS: BP 149/57
[2019-10-04] MEDS: INSULIN REGULAR, HUMAN 100 UNIT/ML 3 ML VIAL SQ PRN ×5 (00:28→23:38)
[2019-10-04] MEDS: BLOOD SUGAR DIAGNOSTIC 1 EACH STRIP IN SCH ×5 (00:36→23:36)
[2019-10-04] MEDS: NEPRO 1,000 ML BOTTLE GT PRN (01:51)
--- NOTE | 2019-10-04 01:57 | NUR ---
PT RECEIVE STABLE ON MV, SETTINGS ARE AC 16 500 +5 AT 30% FIO2, ALARMS ARE ON AND AUDIBLE, AMBU BAG IS AT BEDSIDE, TRACH PATENT AND SECURED, VENT PLUG IN RED OUTLET, WILL CONTINUE TO MONITOR Addendum: 10/04/19 at 0158 by REMA KINGSLEY RT Amended: Links added.
[2019-10-04 04:00] VITALS: BP 143/76
[2019-10-04 07:02] LABS: BASOPHILS % (AUTO) 0.3 % (0.0-2.0); EOSINOPHILS % (AUTO) 3.1 % (0.0-6.0); HEMATOCRIT 33 % (33-45); HEMOGLOBIN 10.4 g/dL (11.5-14.8); LYMPHOCYTES # (AUTO) 1.4 /CMM (0.8-4.8); LYMPHOCYTES % (AUTO) 10.9 % (20.0-44.0); MEAN CORPUSCULAR HGB CONC 32 g/dl (31.0-36.0); MEAN CORPUSCULAR VOLUME 94 fL (82-100); MONOCYTES % (AUTO) 8.2 % (2.0-12.0); NEUTROPHILS # (AUTO) 9.7 /CMM (1.8-8.9); NEUTROPHILS % (AUTO) 77.5 % (43.0-81.0); PLATELET COUNT (AUTO) 108 /CMM (150-450); RED BLOOD CELL COUNT(AUTO) 3.46 MIL/uL (4.0-5.2); WHITE BLOOD COUNT (AUTO) 12.5 K/uL (4.3-11.0)
--- NOTE | 2019-10-04 07:05 | NUR ---
GRAVEL TRUCK DRIVER CLOSING NOTE PATIENT IN BED WITH NO SIGN OF DISTRESS. TOLERATING VENT WELL WITH NO SIGNS OF OBSTRUCTION OR ANY SOB. ALL SAFETY PRECAUTIONS APPLIED. ENDORSED PATIENT TO MORNING SHIFT NURSE FOR JOHN.
--- NOTE | 2019-10-04 07:25 | NUR ---
TELE/RN OPENING NOTES RECEIVED PATIENT IN BED SLEEPING COMFORTABLY. EASILY AROUSABLE. NO PAIN OR ACUTE DISTRESS AT THIS TIME. RESPIRATION EVEN AND UNLABORED. SKIN IS DRY WARM TO TOUCH. PATIENT NOTED TO BE ON MECH VENT. ABLE TO TOLERATE CURRENT SETTINGS WELL. PATIENT IS ALERT AND ORIENTED X2. ABLE TO MAKE MOUTHS WORDS. TELE MONITOR READS AROUND 70'S. NOTED WITH GTUBE. INTACT AND PATENT. FLUSHING WELL. SITE HAS DRESSING, ASPIRATED NO RESIDUAL. NOTED WITH IV ACCESS IN LASHAE MIDLINE PATENT AND SALINE LOCKED, TRUDI AV SHUNT FOR HD. ALL NEEDS ANTICIPATED. CALL LIGHT WITHIN REACHED. SAFETY MAINTAINED. BED LOCKED AND IN LOWEST POSITION. PLAN OF CARE DISCUSSED. WILL CONTINUE TO MONITOR CLOSELY.
[2019-10-04 07:49] LABS: CALCIUM, SERUM 9.2 mg/dL (8.5-10.1); CARBON DIOXIDE 26 mmol/L (21-32); CHLORIDE 97 mmol/L (98-107); CREATININE 4.9 mg/dL (0.6-1.3); GLUCOSE 181 mg/dL (74-106); MAGNESIUM 2.4 mg/dL (1.8-2.4); PHOSPHORUS 3.7 mg/dL (2.5-4.9); POTASSIUM 4.4 mmol/L (3.5-5.1); SODIUM SERUM 135 mmol/L (136-145); UREA NITROGEN, BLOOD 74 mg/dL (7-18)
[2019-10-04 08:00] VITALS: BP 138/64
[2019-10-04] MEDS: SEVELAMER CARBONATE 800 MG TABLET PO SCH ×3 (08:37→17:10)
[2019-10-04] MEDS: LACTOBACILLUS RHAMNOSUS GG 1 EACH CAP.SPRINK PO SCH ×2 (08:37→16:30)
[2019-10-04] MEDS: VIT B CMPLX 3/FA/VIT C/BIOTIN 1 TAB TABLET PO SCH (08:37)
[2019-10-04] MEDS: PANTOPRAZOLE 40 MG VIAL IV SCH (08:38)
[2019-10-04] MEDS: LABETALOL HCL (100MG) 100 MG TABLET GT SCH ×2 (08:38→20:27)
[2019-10-04] MEDS: HYDROCORTISONE SOD SUCCINATE 100 MG/2 ML VIAL IV SCH ×2 (08:38→16:31)
[2019-10-04] MEDS: HYDROGEL DRESSING 90 GM TUBE TP SCH (08:39)
[2019-10-04] MEDS: MUPIROCIN OINT 2% 22 GM TUBE SCH ×2 (08:39→21:12)
[2019-10-04] MEDS: Z GUARD REMEDY 2 OZ OINT TP SCH (08:39)
[2019-10-04] MEDS: PROSOURCE / PROSTAT (PYXIS) 30 ML UDC GT SCH (08:39)
[2019-10-04] MEDS: APIXABAN 2.5 MG TABLET GT SCH ×2 (08:42→16:30)
[2019-10-04 09:02] LABS: BAND % (MANUAL) 3 % (0.0-5.0); EOSINOPHILS % (MANUAL) 1 % (0-4); LYMPHOCYTES % (MANUAL) 13 % (16-48); MONOCYTES % (MANUAL) 3 % (0-11.0); MYELOCYTES % 1 % (0-0); NEUTROPHILS % (MANUAL) 79 (42-76)
[2019-10-04 12:00] VITALS: BP 136/60
[2019-10-04] MEDS: MEROPENEM 500 MG in IV NS 0.9% 50 ML IV SCH (13:00)
[2019-10-04 16:00] VITALS: BP 137/56
--- NOTE | 2019-10-04 18:53 | NUR ---
TELE/RN CLOSING NOTES PATIENT CONTINUES TO REMAIN IN [place] CONDITION THROUGHOUT THE SHIFT. PROVIDED COMFORT AND SAFETY. ABLE TO MAKE MOUTHS WORDS. TELE MONITOR READS AROUND 70'S. NOTED WITH GTUBE. INTACT AND PATENT. FLUSHING WELL. SITE HAS DRESSING, ASPIRATED NO RESIDUAL. NOTED WITH IV ACCESS IN LASHAE MIDLINE PATENT AND SALINE LOCKED, TRUDI AV SHUNT FOR HD. ALL NEEDS ANTICIPATED. CALL LIGHT WITHIN REACHED. SAFETY MAINTAINED. BED LOCKED AND IN LOWEST POSITION. PLAN OF CARE DISCUSSED. WILL CONTINUE TO MONITOR CLOSELY. ENDORSED TO PM NURSE FOR JOHN.
--- NOTE | 2019-10-04 19:30 | NUR ---
METHODS EXAMINER OPENING NOTES PATIENT IN STABLE CONDITION WITH NO SIGNS OF ANY DISTRESS. TOLERATING VENT WELL NO OBSTRUCTIONS OR OCCLUSIONS AND SUCTIONED NEEDED. PATIENT IS BEDBOUND WITH MULTIPLE WOUNDS. HAS LASHAE MIDLINE AND LAV SHUNT. ALL SAFETY PRECAUTIONS HAVE BEEN APPLIED WILL CONTINUE TO MONITOR PATIENT THROUGHOUT THE NIGHT.
[2019-10-04 20:00] VITALS: BP 150/65
[2019-10-04] MEDS: INSULIN GLARGINE, 100 UNIT/ML CARTRIDGE SQ SCH (21:20)
[2019-10-05] VITALS: BP 145/54
[2019-10-05] MEDS: NEPRO 1,000 ML BOTTLE GT PRN (03:54)
[2019-10-05 04:00] VITALS: BP 152/67
[2019-10-05] MEDS: INSULIN REGULAR, HUMAN 100 UNIT/ML 3 ML VIAL SQ PRN ×3 (05:31→18:06)
[2019-10-05] MEDS: BLOOD SUGAR DIAGNOSTIC 1 EACH STRIP IN SCH ×3 (05:34→17:56)
--- NOTE | 2019-10-05 07:03 | NUR ---
CAMPGROUND MANAGER CLOSING NOTES PATIENT IN BED AND TOLERATING VENT WELL NO SIGNS OF ANY DISTRESS OR SOB. ALL NEEDS HAVE BEEN MET AND ATTENDED TOO. ALL SAFETY PRECAUTIONS APPLIED. ENDORSED PATIENT TO MORNING SHIFT NURSE TO [facility].
[2019-10-05 07:18] LABS: BASOPHILS % (AUTO) 0.2 % (0.0-2.0); EOSINOPHILS % (AUTO) 3.1 % (0.0-6.0); HEMATOCRIT 33 % (33-45); HEMOGLOBIN 10.6 g/dL (11.5-14.8); LYMPHOCYTES # (AUTO) 1.5 /CMM (0.8-4.8); LYMPHOCYTES % (AUTO) 9.5 % (20.0-44.0); MEAN CORPUSCULAR HGB CONC 32 g/dl (31.0-36.0); MEAN CORPUSCULAR VOLUME 94 fL (82-100); MONOCYTES # (AUTO) 1.1 /CMM (0.1-1.30); MONOCYTES % (AUTO) 6.6 % (2.0-12.0); NEUTROPHILS # (AUTO) 12.8 /CMM (1.8-8.9); NEUTROPHILS % (AUTO) 80.6 % (43.0-81.0); PLATELET COUNT (AUTO) 103 /CMM (150-450); RED BLOOD CELL COUNT(AUTO) 3.53 MIL/uL (4.0-5.2); WHITE BLOOD COUNT (AUTO) 15.9 K/uL (4.3-11.0)
--- NOTE | 2019-10-05 07:20 | NUR ---
BACK UP SCAN COORDINATOR OPENING NOTE: RECEIVED PATIENT IN BED. ASLEEP. ON MECHANICAL VENTILATION AND TOLERATING WELL, TRACH TUBE OF GONZALO 8, SETTINGS: AC16, TV500, FIO2: 40%, PEEP:5 AND SATURATION @ 100%. NO SOB, NOT IN DISTRESS. ON CARDIAC MONITORING WITH ATRIAL FIBRILLATION NOTED AND HEART RATE IN THE 40S. MD IS AWARE OF THE BASELINE. WITH LEFT AV SHUNT, LASHAE MIDLINE ON TKO. SITES CLEAN, PATENT AND DRESSINGS INTACT. NO PAIN NOTED AT THE MOMENT. CALL LIGHT IN REACH, SIDE RAILS UP, BED LOCKED, LOW AND AT SEMI-VARGAS'S POSITION. WILL CONTINUE TO MONITOR.
[2019-10-05 07:29] LABS: CALCIUM, SERUM 8.7 mg/dL (8.5-10.1); CARBON DIOXIDE 26 mmol/L (21-32); CHLORIDE 95 mmol/L (98-107); CREATININE 5.8 mg/dL (0.6-1.3); GLUCOSE 164 mg/dL (74-106); POTASSIUM 4.7 mmol/L (3.5-5.1); SODIUM SERUM 132 mmol/L (136-145)
[2019-10-05 07:35] LABS: UREA NITROGEN, BLOOD 92 mg/dL (7-18)
--- NOTE | 2019-10-05 07:37 | NUR ---
RT RECEIVED PT TRACH'D ON [facility] VENT WITH SETTINGS PER MD ORDER. CLIP ON SUNGLASSES INSPECTOR DONE. VENT PLUGGED INTO RED OUTLET. SPARE TRACH AND AMBU BAG AT HEAD OF BED. SUCTIONED AND MONITORED PRN. ALARMS ON AND AUDIBLE. PT IS AWAKE AND RESPONSIVE. NO SOB OR SIGNS OF DISTRESS NOTED AT THIS TIME. WILL CONTINUE TO MONITOR THE PATIENT FOR ANY CHANGES. Addendum: 10/05/19 at 1821 by HALIE MEZA RT Amended: Links added.
[2019-10-05] MEDS: SEVELAMER CARBONATE 800 MG TABLET PO SCH ×3 (07:45→17:59)
[2019-10-05 08:00] VITALS: BP 144/58
[2019-10-05 08:34] LABS: BAND % (MANUAL) 2 % (0.0-5.0); EOSINOPHILS % (MANUAL) 1 % (0-4); LYMPHOCYTES % (MANUAL) 10 % (16-48); MONOCYTES % (MANUAL) 8 % (0-11.0); NEUTROPHILS % (MANUAL) 79 (42-76)
[2019-10-05] MEDS: VIT B CMPLX 3/FA/VIT C/BIOTIN 1 TAB TABLET PO SCH (08:39)
[2019-10-05] MEDS: PANTOPRAZOLE 40 MG VIAL IV SCH (08:39)
[2019-10-05] MEDS: LABETALOL HCL (100MG) 100 MG TABLET GT SCH ×2 (08:40→21:00)
[2019-10-05] MEDS: LACTOBACILLUS RHAMNOSUS GG 1 EACH CAP.SPRINK PO SCH ×2 (08:41→17:59)
[2019-10-05] MEDS: MUPIROCIN OINT 2% 22 GM TUBE SCH ×2 (08:41→21:07)
[2019-10-05] MEDS: Z GUARD REMEDY 2 OZ OINT TP SCH (08:41)
[2019-10-05] MEDS: PROSOURCE / PROSTAT (PYXIS) 30 ML UDC GT SCH (08:41)
[2019-10-05] MEDS: HYDROCORTISONE SOD SUCCINATE 100 MG/2 ML VIAL IV SCH ×2 (08:41→17:59)
[2019-10-05] MEDS: HYDROGEL DRESSING 90 GM TUBE TP SCH (08:41)
[2019-10-05] MEDS: APIXABAN 2.5 MG TABLET GT SCH ×2 (08:42→18:01)
[2019-10-05 12:00] VITALS: BP 147/57
[2019-10-05] MEDS: MEROPENEM 500 MG in IV NS 0.9% 50 ML IV SCH (15:00)
[2019-10-05 16:00] VITALS: BP 149/67
[2019-10-05] MEDS: VANCOMYCIN 500 MG in IV D5W 100 ML IV PRN (17:15)
--- NOTE | 2019-10-05 19:10 | NUR ---
INTERFACE ENGINEER CLOSING NOTE: RECEIVED PATIENT IN AWAKE, ALERT AND ORIENTED X4. ON MECHANICAL VENTILATION AND TOLERATING SETTINGS WELL, TRACH TUBE OF SHILEY [address] NO SOB, NOT IN DISTRESS. ON CARDIAC MONITORING WITH ATRIAL FIBRILLATION NOTED AND HEART RATE IN THE 50S. MD IS AWARE OF THE BASELINE. WITH LEFT AV SHUNT, LASHAE MIDLINE ON TKO. SITES CLEAN, PATENT AND DRESSINGS INTACT. NO PAIN NOTED AT THE MOMENT. CALL LIGHT IN REACH, SIDE RAILS UP, BED LOCKED, LOW AND AT SEMI-VARGAS'S POSITION. WILL ENDORSE TO ONCOMING NURSE FOR JOHN.
--- NOTE | 2019-10-05 19:30 | NUR ---
DIVISION PLANT ENGINEER NOTE PATIENT RECEIVED IN BED SITTING UP. PATIENT A/O X 3-4. PATIENT ON VENT TOLERATING CURRENT VENT SETTINGS. BREATHING EVEN AND UNLABORED. NO S/S OF RESP DISTRESS. PATIENT DENIES PAIN OR CHEST PAIN AT THIS TIME. PATIENT AFIB HR 52 ON THE MONITOR. PATIENT RUNNING GTUBE FEEDING AT THIS TIME. MINIMAL RESIDUAL NOTED/ PATIENT HAS LASHAE MIDLINE PATENT AND INTACT NO S/S OF INFECTION OR INFILTRATION RUNNING TKO. GOALS AND POC DISCUSSED WITH PATIENT. PATIENT VERBALIZE UNDERSTANDING. RN WILL CONTINUE TO MONITOR FOR CHANGES. SAFETY PRECAUTIONS IN PLACE. SIDE RAILS UP X2 CALL LIGHT IN HAND.
[2019-10-05 20:00] VITALS: BP 146/72
--- NOTE | 2019-10-05 21:05 | NUR ---
CANE STRIPPER NOTE HOLDING PATIENT LABETALOL CURRENT HR 47. PATIENT ASYMPTOMATIC. HOLDING PER MD ORDER TO NOT GIVE IF HR LESS THAN 50.
[2019-10-05] MEDS: INSULIN GLARGINE, 100 UNIT/ML CARTRIDGE SQ SCH (22:08)
[2019-10-06] VITALS: BP 154/65
[2019-10-06] MEDS: BLOOD SUGAR DIAGNOSTIC 1 EACH STRIP IN SCH ×3 (01:07→11:43)
[2019-10-06] MEDS: INSULIN REGULAR, HUMAN 100 UNIT/ML 3 ML VIAL SQ PRN ×2 (01:09→11:49)
[2019-10-06 04:00] VITALS: BP 136/67
[2019-10-06] MEDS: NEPRO 1,000 ML BOTTLE GT PRN (06:16)
[2019-10-06 07:03] LABS: CALCIUM, SERUM 8.8 mg/dL (8.5-10.1); CARBON DIOXIDE 31 mmol/L (21-32); CHLORIDE 97 mmol/L (98-107); CREATININE 5.1 mg/dL (0.6-1.3); GLUCOSE 128 mg/dL (74-106); POTASSIUM 4.3 mmol/L (3.5-5.1); SODIUM SERUM 136 mmol/L (136-145); UREA NITROGEN, BLOOD 79 mg/dL (7-18)
[2019-10-06 07:05] LABS: BASOPHILS % (AUTO) 0.2 % (0.0-2.0); EOSINOPHILS % (AUTO) 2.9 % (0.0-6.0); HEMATOCRIT 32 % (33-45); HEMOGLOBIN 10.3 g/dL (11.5-14.8); LYMPHOCYTES # (AUTO) 1.3 /CMM (0.8-4.8); LYMPHOCYTES % (AUTO) 8.2 % (20.0-44.0); MEAN CORPUSCULAR HGB CONC 32 g/dl (31.0-36.0); MEAN CORPUSCULAR VOLUME 94 fL (82-100); MONOCYTES # (AUTO) 1.1 /CMM (0.1-1.30); MONOCYTES % (AUTO) 7.5 % (2.0-12.0); NEUTROPHILS # (AUTO) 12.4 /CMM (1.8-8.9); NEUTROPHILS % (AUTO) 81.2 % (43.0-81.0); PLATELET COUNT (AUTO) 102 /CMM (150-450); RED BLOOD CELL COUNT(AUTO) 3.44 MIL/uL (4.0-5.2); WHITE BLOOD COUNT (AUTO) 15.3 K/uL (4.3-11.0)
[2019-10-06 08:00] VITALS: BP 152/66
[2019-10-06] MEDS: SEVELAMER CARBONATE 800 MG TABLET PO SCH ×2 (08:00→09:04)
[2019-10-06 08:27] LABS: BAND % (MANUAL) 2 % (0.0-5.0); EOSINOPHILS % (MANUAL) 3 % (0-4); LYMPHOCYTES % (MANUAL) 10 % (16-48); MONOCYTES % (MANUAL) 7 % (0-11.0); NEUTROPHILS % (MANUAL) 79 (42-76)
--- NOTE | 2019-10-06 08:34 | NUR ---
RT PT RECEIVED TRACHED AND ON CURRENT VENT SETTINGS. PT IN NO RESPIRATORY DISTRESS. PT IS ALERT AND FOLLOWS COMMANDS. VENT IS PLUGGED INTO RED OUTLET. AMBU BAG AT HEAD OF BED. HOB IS AT 30 DEGREES. WILL CONTINUE TO MONITOR. Addendum: 10/06/19 at 1625 by NII PAUL RT Amended: Links added.
[2019-10-06] MEDS: PROSOURCE / PROSTAT (PYXIS) 30 ML UDC GT SCH (09:04)
[2019-10-06] MEDS: VIT B CMPLX 3/FA/VIT C/BIOTIN 1 TAB TABLET PO SCH (09:04)
[2019-10-06] MEDS: LACTOBACILLUS RHAMNOSUS GG 1 EACH CAP.SPRINK PO SCH (09:04)
[2019-10-06] MEDS: PANTOPRAZOLE 40 MG VIAL IV SCH (09:06)
[2019-10-06] MEDS: HYDROCORTISONE SOD SUCCINATE 100 MG/2 ML VIAL IV SCH (09:06)
[2019-10-06] MEDS: HYDROGEL DRESSING 90 GM TUBE TP SCH (09:07)
[2019-10-06] MEDS: Z GUARD REMEDY 2 OZ OINT TP SCH (09:07)
[2019-10-06] MEDS: APIXABAN 2.5 MG TABLET GT SCH (09:08)
[2019-10-06] MEDS: MUPIROCIN OINT 2% 22 GM TUBE SCH (10:10)
[2019-10-06] MEDS: LABETALOL HCL (100MG) 100 MG TABLET GT SCH (11:20)
[2019-10-06] MEDS ORDERED: SEVELAMER CARBONATE 0.8 GM POWD.PACK GT SCH (11:43)
[2019-10-06 12:00] VITALS: BP 140/72
[2019-10-06] MEDS: MEROPENEM 500 MG in IV NS 0.9% 50 ML IV SCH (13:04)
[2019-10-06 16:00] VITALS: BP 130/68
--- NOTE | 2019-10-06 17:15 | NUR ---
RN Note: Patient discharge alert awake oriented x 1-2, able to mouth words to make needs known. On vent -trac, settings tolerating well. no fall/injury noted. G-tube site intact, feeding tube tolerated well. no residual noted. Discharge to [facility], report given to Adrianne VASQUEZ. Skin/wound pictures were taken by marble finisher, placed in the chart. no changes noted. discharge with midline due to IV ATB therapy for 7 days. charge histotechnologist aware. patient picked up by [address] [employer] [place] & RT. discharge package given to bleach packer. Left from floor alert awake oriented.
== END 2019-10-06 17:50 | disposition short-term general hospital (02) | DRG 870 ==
LOC: ER 06:03 → ICU 08:41 → TELE-TD 09-26 18:20 → TELE1 09-27 10:04
PROVIDERS: ADMIT Internal Medicine; ATTEND Nurse Practitioner Acute Care
PROC: 5A1955Z Respiratory Ventilation, Greater than 96 Consecutive Hours (ICD-10-PCS; principal; 2019-09-24)
PROC: 05H533Z Insertion of Infusion Device into Right Subclavian Vein, Percutaneous Approach (ICD-10-PCS; 2019-09-24)
PROC: 5A1D70Z Performance of Urinary Filtration, Intermittent, Less than 6 Hours Per Day (ICD-10-PCS; 2019-09-25)
DX: A41.9 Sepsis, unspecified organism (principal); J15.6 Pneumonia due to other Gram-negative bacteria; N18.6 End stage renal disease; J96.20 Acute and chronic respiratory failure, unspecified whether with hypoxia or hypercapnia; R53.2 Functional quadriplegia; R65.21 Severe sepsis with septic shock; I13.2 Hypertensive heart and chronic kidney disease with heart failure and with stage 5 chronic kidney disease, or end stage renal disease; G93.1 Anoxic brain damage, not elsewhere classified; E44.0 Moderate protein-calorie malnutrition; Z99.11 Dependence on respirator [ventilator] status; E27.40 Unspecified adrenocortical insufficiency; J44.0 Chronic obstructive pulmonary disease with (acute) lower respiratory infection; J95.851 Ventilator associated pneumonia; E11.22 Type 2 diabetes mellitus with diabetic chronic kidney disease; I25.10 Atherosclerotic heart disease of native coronary artery without angina pectoris; D69.6 Thrombocytopenia, unspecified; D63.1 Anemia in chronic kidney disease; E88.09 Other disorders of plasma-protein metabolism, not elsewhere classified; K21.9 Gastro-esophageal reflux disease without esophagitis; Z99.2 Dependence on renal dialysis; Z93.1 Gastrostomy status; R13.10 Dysphagia, unspecified; I44.0 Atrioventricular block, first degree; I50.9 Heart failure, unspecified; E66.01 Morbid (severe) obesity due to excess calories; D50.9 Iron deficiency anemia, unspecified; Z22.322 Carrier or suspected carrier of Methicillin resistant Staphylococcus aureus; G47.419 Narcolepsy without cataplexy; I27.20 Pulmonary hypertension, unspecified; Z79.4 Long term (current) use of insulin; Y83.3 Surgical operation with formation of external stoma as the cause of abnormal reaction of the patient, or of later complication, without mention of misadventure at the time of the procedure; Y72.8 Miscellaneous otorhinolaryngological devices associated with adverse incidents, not elsewhere classified; Y92.129 Unspecified place in nursing home as the place of occurrence of the external cause
CPT/HCPCS: 31720; 36415; 36600; 71045-TC; 80048-TC; 80053-TC; 80076-TC; 80202-TC; 82533; 82728-TC; 82803-TC; 82962-TC; 83540-TC; 83605-TC; 83690-TC; 83735-TC; 84100-TC; 84439-TC; 84443-TC; 84484-TC; 85025-TC; 86706; 87040-TC; 87070-TC; 87081-TC; 87186-TC; 87340; 90935-TC; 92611-TC; 93307-TC; 93971-TC; 94003-TC; 94760-TC; 94762-TC; A4216; A4623; A6248; A6253; A7526; A9563; C9113; G0378; J0360; J1644; J1720; J1815; J2185; J2543; J2916; J3370; J3490; J7030; J7040; J7050; J7060; P9047

== ENCOUNTER 2019-12-09 07:47 | Inpatient (IN) | payer MEDICARE, MEDICAID ==
[~2019-12-09] VITALS: Ht 167.6 cm; Wt 79.4 kg
[~2019-12-09 07:47] MED LIST: *INS NOVA SQ; ACET-73 GT; ACET325T53 GT; APIX2.5T GT; BISA10SU61 RC; DEXT15DR6 OP; FAMO20TA8 GT; FOLI0.8T2 GT; INSU100V7 SQ; LABE100T5 GT; MERO500V23 IV; MINO2.5T GT; NA P133E RC; SEVE800T8 GT; VANC500F2 IV
--- NOTE | 2019-12-09 08:00 | NUR ---
katlyn MCGOWAN. from dialysis center for AVF malfunction L upper arm. Patient on trache dependent on mechanical vent. Kept comfortable, attached to the meter tester. Needs attended.
--- NOTE | 2019-12-09 08:46 | NUR ---
IV LINE ESTABLISHED, BLOOD DRAWN AND SENT TO LAB.
[2019-12-09 08:59] LABS: BASOPHILS % (AUTO) 0.4 % (0.0-2.0); EOSINOPHILS % (AUTO) 23.9 % (0.0-6.0); HEMATOCRIT 30 % (33-45); HEMOGLOBIN 9.6 g/dL (11.5-14.8); LYMPHOCYTES # (AUTO) 0.9 /CMM (0.8-4.8); LYMPHOCYTES % (AUTO) 8.2 % (20.0-44.0); MEAN CORPUSCULAR HGB CONC 32 g/dl (31.0-36.0); MEAN CORPUSCULAR VOLUME 104 fL (82-100); MONOCYTES # (AUTO) 0.8 /CMM (0.1-1.30); MONOCYTES % (AUTO) 7.2 % (2.0-12.0); NEUTROPHILS # (AUTO) 6.8 /CMM (1.8-8.9); NEUTROPHILS % (AUTO) 60.3 % (43.0-81.0); PLATELET COUNT (AUTO) 94 /CMM (150-450); RED BLOOD CELL COUNT(AUTO) 2.84 MIL/uL (4.0-5.2); WHITE BLOOD COUNT (AUTO) 11.2 K/uL (4.3-11.0)
[2019-12-09 09:10] LABS: CALCIUM, SERUM 9.5 mg/dL (8.5-10.1); CARBON DIOXIDE 32 mmol/L (21-32); CHLORIDE 100 mmol/L (98-107); CREATININE 5.1 mg/dL (0.6-1.3); GLUCOSE 89 mg/dL (74-106); POTASSIUM 3.1 mmol/L (3.5-5.1); SODIUM SERUM 141 mmol/L (136-145); UREA NITROGEN, BLOOD 75 mg/dL (7-18)
--- NOTE | 2019-12-09 09:25 | NUR ---
[facility] [phone]
[2019-12-09 09:28] LABS: EOSINOPHILS % (MANUAL) 24 % (0-4); LYMPHOCYTES % (MANUAL) 6 % (16-48); MONOCYTES % (MANUAL) 3 % (0-11.0); NEUTROPHILS % (MANUAL) 67 (42-76)
--- NOTE | 2019-12-09 10:42 | NUR ---
PAGED DR. SANTAMARIA FOR ADMISSION.
--- NOTE | 2019-12-09 11:17 | NUR ---
NO CALL BACK FROM [facility]. PAGING [facility].
--- NOTE | 2019-12-09 11:28 | NUR ---
CALLED NURSING SUP FOR BED
[2019-12-09] MEDS ORDERED: ONDANSETRON HCL/PF 4 MG/2 ML VIAL IVP PRN (11:30)
[2019-12-09] MEDS ORDERED: BISACODYL SUPP (10 MG) 10 MG/SUPP.RECT SUPP.RECT RC PRN (11:30)
[2019-12-09] MEDS ORDERED: ACETAMINOPHEN 325 MG TABLET PO PRN ×2 (11:30)
[2019-12-09] MEDS ORDERED: Z GUARD REMEDY 2 OZ OINT TP PRN (11:30)
[2019-12-09] MEDS ORDERED: NA PHOS,M-B/NA PHOS,DI-BA 1 EA ENEMA RC PRN (11:30)
[2019-12-09] MEDS ORDERED: ESCI10TA GT (11:53)
[2019-12-09] MEDS ORDERED: [UNRECOGNIZED DRUG - CODE] IJ (11:53)
[2019-12-09] MEDS ORDERED: LOSA50TA39 GT (11:53)
[2019-12-09] MEDS ORDERED: HYDR-4076 PO (11:53)
[2019-12-09] MEDS ORDERED: LEVO25TA7 GT (11:53)
[2019-12-09] MEDS ORDERED: LACT1CAP25 PO (11:53)
[2019-12-09] MEDS ORDERED: LORA10TA7 GT (11:53)
[2019-12-09] MEDS ORDERED: GABA100C GT (11:53)
[2019-12-09] MEDS ORDERED: GLUC1KIT IJ (11:53)
[2019-12-09] MEDS ORDERED: SEVE800T8 GT (11:57)
[2019-12-09] MEDS ORDERED: IPRA3AMP23 IH (11:57)
[2019-12-09] MEDS ORDERED: AMIN887L GT (11:57)
--- NOTE | 2019-12-09 12:04 | NUR ---
report given to rosemary sanabria.
[2019-12-09] MEDS: SEVELAMER CARBONATE 0.8 GM POWD.PACK GT SCH ×2 (13:00→17:00)
--- NOTE | 2019-12-09 13:10 | NUR ---
Patient transferred to room 323-1 via acls protocol. No distress noted. Endorsed to Yaneth VASQUEZ
[2019-12-09 16:00] VITALS: BP 127/55
[2019-12-09] MEDS: MINOXIDIL (2.5MG) 2.5 MG TABLET GT SCH (17:00)
[2019-12-09] MEDS: POLYVINYL ALCOHOL 15 ML BOTTLE OP SCH (17:00)
[2019-12-09] MEDS: APIXABAN 2.5 MG TABLET GT SCH (17:00)
--- NOTE | 2019-12-09 19:05 | NUR ---
ROAD MACHINERY INSPECTOR NOTES RECEIVED PT IN BED AWAKE AND ABLE TO MAKE NEEDS KNOWN. PT A/O X2-3 AND CITIZEN OF [place] SPEAKING. RESPIRATIONS EVEN AND UNLABORED WITH NO S/S OF ACUTE DISTRESS OR SOB NOTED. PT ON VENT TOLERATING WELL. PT ALSO ON TELE MONITORING WITH AFIB 40S-70S. NO COMPLAINTS OF PAIN AT THIS TIME. PT NOTED WITH RHAND #18G PATENT AND INTACT AND SL. SAFETY MEASURES IN PLACE WITH BED IN LOWEST LOCKED POSITION WITH SIDE RAILS UP X2. CALL LIGHT WITHIN REACH. WILL CONTINUE TO MONITOR.
--- NOTE | 2019-12-09 19:47 | NUR ---
TAKE OUT WAITER NOTES ADMITTED A FEMALE PATIENT FROM ER WITH ADMITTING DIAGNOSIS OF AV FISTULA MALFUNCTION. PATIENT IS ON VENT. ON TELE MONITOR WITH AFIB 51. DENIES PAIN AT THIS TIME. PATIENT IS FOR AV FISTULA INSERTION TOMORROW WITH CONSENT SIGN BY DAUGHTER. KEPT PATIENT DRY AND CLEAN. BED IN LOWEST POSITION. SIDE RAILS UP X2 CALL LIGHTS WITHIN REACH. WILL ENDORSED TO PULP MILL OPERATOR COR CONTINUITY OF CARE.
[2019-12-09 20:00] VITALS: BP 119/53
--- NOTE | 2019-12-09 20:57 | NUR ---
PT RCVD GINNY'D ON MECHANICAL VENT WITH CHARTED SETTINGS. SX DONE. PT TRACH IS PATENT AND SECURE. VENT ALARMS APPEAR TO BE FUNCTIONING PROPERLY. VENT PLUGGED INTO RED OUTLET. AMBU BAG AT BEDSIDE. NO SOB NOTED. Addendum: 12/09/19 at 2057 by VERN DAMON RT Amended: Links added.
[2019-12-09] MEDS: LABETALOL HCL (100MG) 100 MG TABLET GT SCH (21:00)
[2019-12-09] MEDS ORDERED: hydrALAZINE HCL 25 MG TABLET PO PRN (21:00)
[2019-12-09] MEDS: INSULIN GLARGINE, 100 UNIT/ML CARTRIDGE SQ SCH (22:00)
[2019-12-10] VITALS: BP 149/59
[2019-12-10 04:00] VITALS: BP 149/59
--- NOTE | 2019-12-10 05:45 | NUR ---
MILLED RUBBER TENDER NOTES PT NOTED WITH OPEN SCAB FROM SCRATCHING ON BUTTOCKS/SACRUM. WILL CONTINUE TO MONITOR.
[2019-12-10 07:07] LABS: BASOPHILS # (AUTO) 0.1 /CMM (0.0-0.2); BASOPHILS % (AUTO) 0.5 % (0.0-2.0); HEMATOCRIT 31 % (33-45); HEMOGLOBIN 9.9 g/dL (11.5-14.8); LYMPHOCYTES % (AUTO) 9.3 % (20.0-44.0); MEAN CORPUSCULAR HGB CONC 32 g/dl (31.0-36.0); MEAN CORPUSCULAR VOLUME 103 fL (82-100); MONOCYTES # (AUTO) 0.7 /CMM (0.1-1.30); MONOCYTES % (AUTO) 6.5 % (2.0-12.0); NEUTROPHILS # (AUTO) 6.6 /CMM (1.8-8.9); NEUTROPHILS % (AUTO) 58.5 % (43.0-81.0); PLATELET COUNT (AUTO) 114 /CMM (150-450); RED BLOOD CELL COUNT(AUTO) 3.02 MIL/uL (4.0-5.2); WHITE BLOOD COUNT (AUTO) 11.3 K/uL (4.3-11.0)
[2019-12-10 07:12] LABS: EOSINOPHILS % (AUTO) 25.2 % (0.0-6.0)
[2019-12-10] MEDS: LEVOTHYROXINE SODIUM 25 MCG TABLET GT SCH (07:30)
[2019-12-10 07:38] LABS: ALANINE AMINOTRANSFERASE 16 U/L (12-78); ALBUMIN 2.8 g/dL (3.4-5.0); ALKALINE PHOSPHATASE 241 U/L (46-116); ASPARTATE AMINOTRANSFERASE 15 U/L (15-37); BILIRUBIN,TOTAL 0.6 mg/dL (0.2-1.0); CALCIUM, SERUM 9.4 mg/dL (8.5-10.1); CARBON DIOXIDE 30 mmol/L (21-32); CHLORIDE 101 mmol/L (98-107); CREATININE 6.1 mg/dL (0.6-1.3); GLUCOSE 96 mg/dL (74-106); MAGNESIUM 2.8 mg/dL (1.8-2.4); PHOSPHORUS 3.3 mg/dL (2.5-4.9); POTASSIUM 3.4 mmol/L (3.5-5.1); SODIUM SERUM 142 mmol/L (136-145); TOTAL PROTEIN, SERUM 6.4 g/dL (6.4-8.2)
[2019-12-10 07:47] LABS: UREA NITROGEN, BLOOD 86 mg/dL (7-18)
[2019-12-10 08:00] VITALS: BP 161/79
--- NOTE | 2019-12-10 08:24 | NUR ---
ROLL MILL OPERATOR NOTES PT IN BED AWAKE AND ABLE TO MAKE NEEDS KNOWN. PT A/O X2-3 AND ITALIAN SPEAKING. RESPIRATIONS EVEN AND UNLABORED WITH NO S/S OF ACUTE DISTRESS OR SOB NOTED THROUGHOUT SHIFT. PT ON VENT TOLERATING WELL. PT ALSO ON TELE MONITORING WITH AFIB 40S-70S. NO COMPLAINTS OF PAIN AT THIS TIME. PT NOTED WITH RHAND #18G PATENT AND INTACT AND SL. PT KEPT CLEAN, DRY, AND COMFORTABLE. SAFETY MEASURES IN PLACE WITH BED IN LOWEST LOCKED POSITION WITH SIDE RAILS UP X2. CALL LIGHT WITHIN REACH. WILL ENDORSE TO ONCOMING NURSE FOR JOHN.
[2019-12-10] MEDS ORDERED: MISCELLANEOUS MED 1 EA EA GT SCH (09:00)
[2019-12-10] MEDS ORDERED: MEROPENEM 500 MG VIAL IV SCH (09:00)
[2019-12-10] MEDS: APIXABAN 2.5 MG TABLET GT SCH ×2 (09:00→16:43)
--- NOTE | 2019-12-10 09:51 | NUR ---
WOUND CARE CONSULT: PT PRESENTS WITH REDNESS UNDER BREASTFOLDS, DRY SKIN WITH SCABS ON LOWER EXTREMITIES. SACRAL AND BUTTOCK SCARRING AND INCONTINENCE ASSOCIATED SKIN DAMAGE PLUS SCRATCH SCRUGGS ON BUTTOCKS, PRESENT ON ADMISSION. PT IS NOTED TO BE SCRATCHING HER SKIN. RECOMMENDATIONS MADE FOR SKIN PROTECTION AND SKIN CARE. DISCUSSED WITH NURSING STAFF. RN TO DISCUSS SCRATCHING BEHAVIOR WITH MD. ORAN ISOFLEX LOW AIRLOSS BED TO BE PLACED. WILL SEE PRN. IN AGREEMENT WITH PLAN OF CARE.
[2019-12-10] MEDS: MINERAL OIL/PETROLATUM,WHITE 120 GM JAR TP SCH (10:00)
[2019-12-10] MEDS: ESCITALOPRAM OXALATE (10 MG) 10 MG TABLET GT SCH (10:38)
[2019-12-10] MEDS: GABAPENTIN 100 MG CAPSULE GT SCH (10:38)
[2019-12-10] MEDS: VIT B CMPLX 3/FA/VIT C/BIOTIN 1 TAB TABLET GT SCH (10:38)
[2019-12-10] MEDS: MINOXIDIL (2.5MG) 2.5 MG TABLET GT SCH ×2 (10:38→16:42)
[2019-12-10] MEDS: FAMOTIDINE (20 MG) 20 MG TABLET GT SCH (10:38)
[2019-12-10] MEDS: LABETALOL HCL (100MG) 100 MG TABLET GT SCH ×2 (10:39→21:10)
[2019-12-10] MEDS: LORATADINE 10 MG TABLET GT SCH (10:40)
[2019-12-10] MEDS: LOSARTAN POTASSIUM 50 MG TABLET GT SCH (10:40)
[2019-12-10] MEDS: SEVELAMER CARBONATE 0.8 GM POWD.PACK GT SCH ×3 (10:41→16:40)
[2019-12-10] MEDS: POLYVINYL ALCOHOL 15 ML BOTTLE OP SCH ×2 (10:48→16:40)
[2019-12-10] MEDS ORDERED: HEPARIN SODIUM, PORCINE 1,000 UNIT/ML VIAL ONE (11:39)
[2019-12-10] MEDS ORDERED: LIDOCAINE HCL/PF 1% 30 ML SDV ONE (11:39)
[2019-12-10 11:55] LABS: BAND % (MANUAL) 5 % (0.0-5.0); EOSINOPHILS % (MANUAL) 22 % (0-4); LYMPHOCYTES % (MANUAL) 1 % (16-48); MONOCYTES % (MANUAL) 7 % (0-11.0); NEUTROPHILS % (MANUAL) 65 (42-76)
[2019-12-10] MEDS ORDERED: NEPRO 1,000 ML BOTTLE GT PRN (14:00)
[2019-12-10 16:00] VITALS: BP 124/53
[2019-12-10] MEDS: CLOTRIMAZOLE 1% 15 GM TUBE TP SCH (16:43)
[2019-12-10 20:00] VITALS: BP 155/67
[2019-12-10] MEDS: INSULIN GLARGINE, 100 UNIT/ML CARTRIDGE SQ SCH (22:36)
[2019-12-11] VITALS: BP 133/55
--- NOTE | 2019-12-11 03:24 | NUR ---
PT RCVD GINNY'D ON MECHANICAL VENT WITH CHARTED SETTINGS. SX DONE. PT TRACH IS PATENT AND SECURE. VENT ALARMS APPEAR TO BE FUNCTIONING PROPERLY. VENT PLUGGED INTO RED OUTLET. AMBU BAG AT BEDSIDE. NO SOB NOTED. Addendum: 12/11/19 at 0325 by VERN DAMON RT Amended: Links added.
[2019-12-11 04:00] VITALS: BP 123/56
[2019-12-11 05:47] VITALS: BP 123/56
--- NOTE | 2019-12-11 06:31 | NUR ---
GAS SINGER NOTES AWAKE & ALERT WITH SAME VENT SETTINGS. NOT IN ANY DISTRESS. NO SOB NOTED. NO S/SX OF ANY PAIN OR DISCOMFORT AT THIS TIME. ON TELE AFIB @ 60S. AM CARE DONE. MONITORED ACCORDINGLY. CALL LIGHT WITHIN REACH. BED IN LOWEST POSITION. SR UP X 3 WITH BED ALARM ON FOR SAFETY. WILL ENDORSE TO NEXT SHIFT.
[2019-12-11 07:55] VITALS: BP 132/50
--- NOTE | 2019-12-11 07:56 | NUR ---
ENGINEERING INTERN NOTES PATIENT RECEIVED IN BED RESTING. ALERT AND ORIENTED X 3, PATIENT MAINLY BELARUSIAN SPEAKING AND CAN MOUTH WORDS. NO RESPIRATORY DISTRESS PRESENT. ON MEATCUTTER, A-FIB, 60'S. PATIENT SKIN DRY, IV ACCESS IN PLACE AND PATENT. G-TUBE IN PLACE, GTF ONGOING ON NEPRO DIET. NO DISCOMFORT AND PAIN PRESENT AT THIS TIME, PROVIDED COMFORT MEASURES. PATIENT AT RISK FOR FALL, FALL PRECAUTION TAKEN PLACE WITH BILATERAL SIDE RAILS UP, BED ALARM ON, BED LOCKED, AND CALL LIGHT WITHIN EASY REACH. WILL CONTINUE TO MONITOR PATIENT.
[2019-12-11] MEDS: SEVELAMER CARBONATE 0.8 GM POWD.PACK GT SCH ×3 (08:58→16:55)
[2019-12-11] MEDS: VIT B CMPLX 3/FA/VIT C/BIOTIN 1 TAB TABLET GT SCH (08:58)
[2019-12-11] MEDS: ESCITALOPRAM OXALATE (10 MG) 10 MG TABLET GT SCH (08:58)
[2019-12-11] MEDS: FAMOTIDINE (20 MG) 20 MG TABLET GT SCH (08:58)
[2019-12-11] MEDS: LORATADINE 10 MG TABLET GT SCH (08:59)
[2019-12-11] MEDS: LEVOTHYROXINE SODIUM 25 MCG TABLET GT SCH (08:59)
[2019-12-11] MEDS: GABAPENTIN 100 MG CAPSULE GT SCH (09:00)
[2019-12-11] MEDS: LABETALOL HCL (100MG) 100 MG TABLET GT SCH ×2 (09:00→21:13)
[2019-12-11] MEDS: APIXABAN 2.5 MG TABLET GT SCH ×2 (09:00→16:55)
[2019-12-11] MEDS: LOSARTAN POTASSIUM 50 MG TABLET GT SCH (09:00)
[2019-12-11] MEDS: MINOXIDIL (2.5MG) 2.5 MG TABLET GT SCH ×2 (09:00→16:58)
[2019-12-11] MEDS: POLYVINYL ALCOHOL 15 ML BOTTLE OP SCH ×2 (10:31→16:57)
[2019-12-11] MEDS: CLOTRIMAZOLE 1% 15 GM TUBE TP SCH ×2 (10:32→16:57)
--- NOTE | 2019-12-11 10:34 | NUR ---
PATIENT SERVICE TECHNICIAN PST NOTES DR SOSA PRESENT AT UNIT, VERBALIZED PATIENT WILL HAVE HD. HELD ALL BP MEDICATION. WILL CONTINUE TO MONITOR PATIENT.
[2019-12-11] MEDS: MINERAL OIL/PETROLATUM,WHITE 120 GM JAR TP SCH (15:19)
[2019-12-11 16:00] VITALS: BP 128/64
--- NOTE | 2019-12-11 17:40 | NUR ---
RT NOTES: PATIENT RECEIVED TRACHED ON PB 840 VENT. ALARMS VERIFIED AND AUDIBLE. VENT PLUGGED INTO RED OUTLET. AMBU BAG AT [facility].
--- NOTE | 2019-12-11 18:29 | NUR ---
DRAMATIC ARTS HISTORIAN NOTES PATIENT IN BED RESTING. ALERT AND ORIENTED X 3, NON-VERBAL, MAINLY SYRI[place] SPEAKING. ON DATA GOVERNANCE CONSULTANT, A-FIB 60'S. NON-LABORED BREATHING, NO RESPIRATORY DISTRESS, TOLERATING VENT SETTINGS PRESENT AT THIS TIME. IV ACCESS ON RIGHT HAND DRY, INTACT, AND PATENT. G-TUBE, KEPT CLEAN AND DRY. PATIENT KEEP CLEAN, DRY AND COMFORTABLE. INITIATED SAFETY PRECAUTION WITH BED ALARM ON, BED LOCKED IN THE LOWEST POSITION, BILATERAL SIDE RAILS UP, AND CALL LIGHT WITHIN EASY REACH. WILL ENDORSE TO UPCOMING RN FOR JOHN.
[2019-12-11] MEDS ORDERED: ALBUMIN 25% 25 GM in PREMIX 1 EA IV PRN (18:30)
[2019-12-11 20:39] VITALS: BP 124/52
[2019-12-11] MEDS: MUPIROCIN OINT 2% 22 GM TUBE SCH (21:16)
--- NOTE | 2019-12-11 21:17 | NUR ---
RT NOTE PT RECEIVED TRACHED ON MECHANICAL VENTILATION. PT AWAKE. AMBU BAG/BACK UP TRACH @ BEDSIDE. SX DONE, TRACH SECURED AND PATENT. ALARMS ON AND AUDIBLE. NO SOB NOTED AT THIS TIME. CONT. PULSE OX CONNECTED. WILL MONITOR T/O SHIFT. Addendum: 12/11/19 at 2119 by JOSEPH FLORES RT Amended: Links added.
[2019-12-11] MEDS: INSULIN GLARGINE, 100 UNIT/ML CARTRIDGE SQ SCH (21:32)
[2019-12-12] VITALS: BP 130/59
[2019-12-12 04:36] VITALS: BP 126/58
--- NOTE | 2019-12-12 07:15 | NUR ---
CERTIFIED HOME HEALTH AIDE NOTES PATIENT RESTING IN BED, NO RESPIRATORY DISTRESS, VENT SETTINGS PRESCRIBED, PATIENT DENIES ANY PAIN AT THIS TIME. CHECK WRITER SALESPERSON ON AFIB 62, SKIN WARM TO TOUCH, IV MIDLINE ON THE LASHAE #18G, INTACT AND PATENT. GT FEEDING OF NEPRO RUNNING AT 40ML/HR, TOLERATING WELL. BILATERAL MITTENS AND SOFT WRIST RESTRAINTS ON, ASSESSED FOR REDNESS AND CIRCULATION. PATIENT'S NEEDS ATTENDED, BED ON LOWEST LOCKED POSITION, CALL LIGHT WITHIN REACH, WILL CONTINUE TO MONITOR.
[2019-12-12 08:00] VITALS: BP 135/55
[2019-12-12] MEDS: SEVELAMER CARBONATE 0.8 GM POWD.PACK GT SCH ×2 (08:23→13:28)
[2019-12-12] MEDS: VIT B CMPLX 3/FA/VIT C/BIOTIN 1 TAB TABLET GT SCH (08:24)
[2019-12-12] MEDS: GABAPENTIN 100 MG CAPSULE GT SCH (08:24)
[2019-12-12] MEDS: FAMOTIDINE (20 MG) 20 MG TABLET GT SCH (08:24)
[2019-12-12] MEDS: LABETALOL HCL (100MG) 100 MG TABLET GT SCH (08:24)
[2019-12-12] MEDS: MINOXIDIL (2.5MG) 2.5 MG TABLET GT SCH (08:25)
[2019-12-12] MEDS: ESCITALOPRAM OXALATE (10 MG) 10 MG TABLET GT SCH (08:25)
[2019-12-12] MEDS: LEVOTHYROXINE SODIUM 25 MCG TABLET GT SCH (08:25)
[2019-12-12] MEDS: APIXABAN 2.5 MG TABLET GT SCH (08:27)
[2019-12-12 08:31] VITALS: BP 135/57
[2019-12-12] MEDS: LOSARTAN POTASSIUM 50 MG TABLET GT SCH (08:31)
[2019-12-12] MEDS: LORATADINE 10 MG TABLET GT SCH (08:37)
[2019-12-12] MEDS: MUPIROCIN OINT 2% 22 GM TUBE SCH (08:38)
[2019-12-12] MEDS: POLYVINYL ALCOHOL 15 ML BOTTLE OP SCH (08:38)
[2019-12-12] MEDS: MINERAL OIL/PETROLATUM,WHITE 120 GM JAR TP SCH (08:38)
[2019-12-12] MEDS: CLOTRIMAZOLE 1% 15 GM TUBE TP SCH (08:38)
--- NOTE | 2019-12-12 15:44 | NUR ---
CYLINDER VALVE REPAIRER NOTES PATIENT DISCHARGED IN STABLE CONDITION, NO RESPIRATORY DISTRESS, VENT SETTINGS PRESCRIBED. PATIENT DENIES ANY PAIN AT THIS TIME. SKIN WARM TO TOUCH. PATIENT REFUSED FOR PHOTOS TO BE TAKEN AT THIS TIME, PATIENT RESTLESS. PATIENT'S PERMACATH WITH DRESSING C/D/I. IV MIDLINE REMOVED AND APPLIED PRESSURE DRESSING. DISCHARGE INSTRUCTIONS GIVEN TO PATIENT AND PARAMEDICS, VERBALIZED UNDERSTANDING. REPORT GIVEN TO CHRISTINA WATSON AT [facility]. PATIENT HAD NO BELONGINGS TO BE SIGNED FOR. PATIENT LEFT WITH PARAMEDICS AND AN RT VIA [place].
== END 2019-12-12 15:45 | DRG 314 ==
LOC: ER 07:50 → TELE 12:25
PROVIDERS: ADMIT Internal Medicine; ATTEND Internal Medicine
PROC: 5A1945Z Respiratory Ventilation, 24-96 Consecutive Hours (ICD-10-PCS; principal; 2019-12-09)
PROC: 0JH63XZ Insertion of Tunneled Vascular Access Device into Chest Subcutaneous Tissue and Fascia, Percutaneous Approach (ICD-10-PCS; 2019-12-10)
PROC: 05HN33Z Insertion of Infusion Device into Left Internal Jugular Vein, Percutaneous Approach (ICD-10-PCS; 2019-12-10)
PROC: B544ZZA Ultrasonography of Left Jugular Veins, Guidance (ICD-10-PCS; 2019-12-10)
PROC: 5A1D70Z Performance of Urinary Filtration, Intermittent, Less than 6 Hours Per Day (ICD-10-PCS; 2019-12-11)
DX: T82.868A Thrombosis due to vascular prosthetic devices, implants and grafts, initial encounter (principal); N18.6 End stage renal disease; G93.1 Anoxic brain damage, not elsewhere classified; Z99.11 Dependence on respirator [ventilator] status; J90 Pleural effusion, not elsewhere classified; E44.0 Moderate protein-calorie malnutrition; I13.2 Hypertensive heart and chronic kidney disease with heart failure and with stage 5 chronic kidney disease, or end stage renal disease; J96.11 Chronic respiratory failure with hypoxia; Y83.9 Surgical procedure, unspecified as the cause of abnormal reaction of the patient, or of later complication, without mention of misadventure at the time of the procedure; Y92.89 Other specified places as the place of occurrence of the external cause; Z93.0 Tracheostomy status; D63.1 Anemia in chronic kidney disease; R13.10 Dysphagia, unspecified; Z93.1 Gastrostomy status; I25.10 Atherosclerotic heart disease of native coronary artery without angina pectoris; I27.20 Pulmonary hypertension, unspecified; D69.6 Thrombocytopenia, unspecified; E88.09 Other disorders of plasma-protein metabolism, not elsewhere classified; Z68.28 Body mass index [BMI] 28.0-28.9, adult; I50.9 Heart failure, unspecified; Z99.2 Dependence on renal dialysis; D72.829 Elevated white blood cell count, unspecified; E11.22 Type 2 diabetes mellitus with diabetic chronic kidney disease; Z79.01 Long term (current) use of anticoagulants
CPT/HCPCS: 31720; 36410; 36415; 71045-TC; 80048-TC; 80053-TC; 82962-TC; 83735-TC; 84100-TC; 84484-TC; 85025-TC; 85730-TC; 87081-TC; 90935-TC; 94002; 94002-TC; 94003-TC; 94760-TC; 94762-TC; 99082-TC; A4216; C1750; G0378; J1644; J1815; J3490; P9047

== ENCOUNTER 2020-04-26 14:01 | Inpatient (IN) | payer MEDICARE, OTHER ==
[2020-04-26] VITALS (24 sets, daily range): BP systolic 61–175; BP diastolic 23–130
[~2020-04-26] VITALS: Ht 167.6 cm; Wt 89.8 kg
[~2020-04-26 14:01] MED LIST changes: -ACET-73 GT; +AMIN887L GT; +ESCI10TA GT; -FOLI0.8T2 GT; +GABA100C GT; +GLUC1KIT IJ; +HYDR-4076 PO; +IPRA3AMP23 IH; -LABE100T5 GT; +LACT1CAP25 PO; +LEVO25TA7 GT; +LORA10TA7 GT; +LOSA50TA39 GT; -MERO500V23 IV; -MINO2.5T GT; -NA P133E RC; -VANC500F2 IV; +[UNRECOGNIZED DRUG - CODE] IJ
--- NOTE | 2020-04-26 14:20 | NUR ---
ALPHONSO MCGOWAN [facility]. PATIENT A/OX1-2, FOLLOWS SIMPLE COMMANDS, ATTACHED TO THE DIGITAL DIRECTOR. NEEDS ATTENDED.
--- NOTE | 2020-04-26 14:25 | NUR ---
IV LINE ESTABLISHED, BLOOD DRAWN AND SENT TO LAB.
[2020-04-26 14:38] LABS: BASOPHILS # (AUTO) 0.1 /CMM (0.0-0.2); BASOPHILS % (AUTO) 0.5 % (0.0-2.0); HEMATOCRIT 27 % (33-45); HEMOGLOBIN 8.4 g/dL (11.5-14.8); LYMPHOCYTES # (AUTO) 0.8 /CMM (0.8-4.8); LYMPHOCYTES % (AUTO) 6.1 % (20.0-44.0); MEAN CORPUSCULAR HGB CONC 31 g/dl (31.0-36.0); MEAN CORPUSCULAR VOLUME 105 fL (82-100); MONOCYTES # (AUTO) 1.2 /CMM (0.1-1.30); MONOCYTES % (AUTO) 9.8 % (2.0-12.0); NEUTROPHILS # (AUTO) 9.6 /CMM (1.8-8.9); NEUTROPHILS % (AUTO) 75.6 % (43.0-81.0); PLATELET COUNT (AUTO) 93 /CMM (150-450); RED BLOOD CELL COUNT(AUTO) 2.61 MIL/uL (4.0-5.2); WHITE BLOOD COUNT (AUTO) 12.7 K/uL (4.3-11.0)
--- NOTE | 2020-04-26 14:39 | NUR ---
DR. SOSA ON THE PHONE TALKING TO ER DOCTOR
--- NOTE | 2020-04-26 14:44 | NUR ---
PER DR. MANZANO'S ORDER, YIP CATHETER INSERTED VIA STERILE TECHNIQUE, NO URINE OUTPUT AT THIS TIME.
[2020-04-26 14:59] LABS: ALANINE AMINOTRANSFERASE 38 U/L (12-78); ALBUMIN 2.6 g/dL (3.4-5.0); ALKALINE PHOSPHATASE 618 U/L (46-116); ASPARTATE AMINOTRANSFERASE 24 U/L (15-37); BILIRUBIN,DIRECT 0.1 mg/dL (0.0-0.2); BILIRUBIN,TOTAL 0.4 mg/dL (0.2-1.0); CALCIUM, SERUM 9.4 mg/dL (8.5-10.1); CARBON DIOXIDE 28 mmol/L (21-32); CHLORIDE 96 mmol/L (98-107); CREATININE 5.9 mg/dL (0.6-1.3); GLUCOSE 175 mg/dL (74-106); SODIUM SERUM 132 mmol/L (136-145); TOTAL PROTEIN, SERUM 6.9 g/dL (6.4-8.2)
[2020-04-26] MEDS ORDERED: DOCU-141 GT (14:59)
[2020-04-26] MEDS ORDERED: NPH.100V2 SQ (14:59)
[2020-04-26] MEDS ORDERED: HYDR-500 GT (14:59)
[2020-04-26 15:01] LABS: UREA NITROGEN, BLOOD 153 mg/dL (7-18)
[2020-04-26 15:07] LABS: BAND % (MANUAL) 10 % (0.0-5.0); EOSINOPHILS % (MANUAL) 10 % (0-4); LYMPHOCYTES % (MANUAL) 6 % (16-48); MONOCYTES % (MANUAL) 9 % (0-11.0); NEUTROPHILS % (MANUAL) 65 (42-76)
[2020-04-26 15:12] LABS: ABG BASE EXCESS -6.5 mmol/L; ABG OXYGEN SATURATION 98.5 % (92.0-98.5); ABG PH 7.248 (7.350-7.450); ABG PO2 153.4 mmHg (75.0-100.0); AaDO2 76.6 mmHg; MetHb 0.5 % (0.0-1.5); SITE, ABG Right Radial; VENT MODE, BG AC 14 500 40% +5
[2020-04-26] MEDS ORDERED: ALBUMIN 25% 12.5 GM/50 ML BOTTLE IV ONE (16:00)
[2020-04-26] MEDS ORDERED: PIPERACILLIN /TAZOBACTAM 2.25 G in IV D5W 50 ML IV ONE (16:00)
[2020-04-26] MEDS ORDERED: VANCOMYCIN 1 GM in IV D5W 250 ML IV ONE (16:00)
[2020-04-26] MEDS ORDERED: ALBUMIN 25% 100 ML IV ONE (16:13)
[2020-04-26] MEDS ORDERED: NUT.237L67 GT (16:30)
--- NOTE | 2020-04-26 16:32 | NUR ---
NURSING SUP GAVE ICU 255.
[2020-04-26] MEDS: NOREPINEPHRINE 8 MG in IV NS 0.9% 242 ML IV PRN (16:43)
--- NOTE | 2020-04-26 16:47 | NUR ---
REPORT GIVEN TO ROSA VASQUEZ FOR JOHN.
--- NOTE | 2020-04-26 17:00 | NUR ---
PICC line nurse at bedside for insertion, consent given by daughter over phone.
--- NOTE | 2020-04-26 17:25 | NUR ---
Levophed IV connected to LASHAE Piccline, patent and flushes well.
--- NOTE | 2020-04-26 17:35 | NUR ---
patient transferred to room 255-1 via acls protocol, with RT. Patient in stable condition. Noted LASHAE picc line still actively bleeding, dressing coming off, pressure applied, dressing changed at ICU. Covid swab requested from lab, will deliver it to ICU. Endorsed to Kari.
--- NOTE | 2020-04-26 17:38 | NUR ---
[employer] NOTES RECEIVED PT FROM ER VIA AUGUSTUS. PT OPEN EYES, NON-VERBAL, DOES NOT FOLLOW COMMANDS. TRACH IN PLACE, ON VENT. NO RESPIRATORY DISTRESS NOTED. NO SOB NOTED. HOB ELEVATED. NO SIGNS OF PAIN NOTED. CONNECTED TO MONITOR. ON LEVOPHED AT 0.1MG/KG/MIN, BP 143/71, MEDICATION HELD. LASHAE PICC IN PLACE, MODERATELY BLEEDING, DRESSING REINFORCED. GT CLAMPED. FC IN PLACE. BODY ASSESSMENT DONE, PICTURES TAKEN AND PLACED IN THE CHART. BLE ELEVATED. DR SOSA REGARDING ADMISSION, AWAITING FOR ORDERS.
[2020-04-26] MEDS ORDERED: FEE PK DOSING 1 MIN EA MC ONE (17:55)
[2020-04-26] MEDS: IV D5/ 0.9% NACL 1,000 ML IV PRN (18:09)
--- NOTE | 2020-04-26 19:10 | NUR ---
RN CLOSING NOTES PT ON LEVO, WILL TITRATE ACCORDINGLY. IVF INFUSING. KEPT CLEAN AND DRY. BLE ELEVATED. WILL ENDORSE FOR CONTINUITY OF CARE
--- NOTE | 2020-04-26 19:30 | NUR ---
NEW [employer] DRIVER NOTES RECEIVED PATIENT IN BED NON VERBAL. ON VENT SETTING TOLERATING WELL ORDERED. NO S/S OF RESPIRATORY DISTRESS NOTED. NO SOB. TELE MONITOR READING SB IN 50'S. IV SITES LASHAE PICC LINE, LH INTACT PATENT FLUSHED WELL. [facility] CATH INTACT NO S/S OF BLEEDING NOTED. SKIN WARM AND DRY TO TOUCH. F/C INTACT PATENT. SAFETY MEASURES IN PLACE, BED IN LOW AND LOCKED POSITION. CALL LIGHT WITHIN REACH. WILL CONT TO MONITOR.
[2020-04-26] MEDS: MEROPENEM 500 MG in IV NS 0.9% 50 ML IV SCH (20:00)
[2020-04-26] MEDS ORDERED: PIPERACILLIN /TAZOBACTAM 2.25 G in IV D5W 50 ML IV SCH (21:00)
--- NOTE | 2020-04-26 23:30 | NUR ---
MRSA AND COVID SWAB DONE AT 2330.
[2020-04-27] VITALS (95 sets, daily range): BP systolic 81–171; BP diastolic 23–149
[2020-04-27 04:16] LABS: IRON, SERUM 41 ug/dl (50-175); TOTAL IRON BINDING CAPACITY 233 ug/dl (250-450)
[2020-04-27 04:39] LABS: CALCIUM, SERUM 9.1 mg/dL (8.5-10.1); CARBON DIOXIDE 24 mmol/L (21-32); CHLORIDE 95 mmol/L (98-107); CREATININE 6.3 mg/dL (0.6-1.3); GLUCOSE 204 mg/dL (74-106); POTASSIUM 5.1 mmol/L (3.5-5.1); SODIUM SERUM 132 mmol/L (136-145)
[2020-04-27 04:42] LABS: UREA NITROGEN, BLOOD 165 mg/dL (7-18)
--- NOTE | 2020-04-27 07:18 | NUR ---
GROUND [employer] [employer] NOTES PATIENT REMAINED STABLE THROUGH OUT THE SHIFT. NO SIGNIFICANT CHANGES NOTED. VENT SETTING TOLERATING WELL ORDERED. MEDICATIONS WERE GIVEN PATIENT TOLERATED WELL. LEVO RUNNING B/P REMAINS WNL. BED BATH GIVEN PATIENT TOLERATED WELL. SAFETY MEASURES IN PLACE, BED IN LOW AND LOCKED POSITION. CALL LIGHT WITHIN REACH. WILL ENDORSE TO AM NURSE FOR JOHN.
--- NOTE | 2020-04-27 07:33 | NUR ---
WOUND CARE CONSULT: REVIEWED CHART, NURSING DOCUMENTATION AND PHOTOS WHICH SHOW MULTIPLE SKIN ISSUES INCLUDING REDNESS TO NECK, RASH/REDNESS TO SKIN FOLDS, SACRAL SCARRING, ALL PRESENT ON ADMISSION. RECOMMEND SURGICAL CONSULT. DR HARPER TO BE CONSULTED. RECOMMENDATIONS MADE FOR SKIN PROTECTION. DISCUSSED WITH NURSING STAFF. FIRST STEP LOW AIRLOSS MATTRESS ON ORDER. WILL SEE PRN. IN AGREEMENT WITH PLAN OF CARE.
[2020-04-27] MEDS ORDERED: Z GUARD REMEDY 2 OZ OINT TP PRN (08:00)
[2020-04-27] MEDS ORDERED: NOREPINEPHRINE 8MG/250ML RTU 250 ML IV ONE (08:22)
[2020-04-27] MEDS: NOREPINEPHRINE 8 MG in IV NS 0.9% 242 ML IV PRN (08:30)
[2020-04-27] MEDS: IV D5/ 0.9% NACL 1,000 ML IV PRN (08:33)
[2020-04-27] MEDS: HYDROCORTISONE SOD SUCCINATE 100 MG/2 ML VIAL IV SCH ×3 (09:15→17:53)
[2020-04-27 09:42] LABS: C-REACTIVE PROTEIN 13.5 mg/dL (0.0-0.9)
[2020-04-27] MEDS ORDERED: BISACODYL SUPP (10 MG) 10 MG/SUPP.RECT SUPP.RECT RC PRN (11:00)
[2020-04-27] MEDS ORDERED: NOREPINEPHRINE 8 MG in IV NS 0.9% 242 ML IV PRN (11:00)
[2020-04-27] MEDS ORDERED: NEPRO VAN 237 ML CAN GT SCH (11:00)
[2020-04-27] MEDS: Z GUARD REMEDY 2 OZ OINT TP SCH (11:58)
[2020-04-27 12:51] LABS: ABG BASE EXCESS -1.6 mmol/L; ABG OXYGEN SATURATION 98.5 % (92.0-98.5); ABG PH 7.325 (7.350-7.450); ABG PO2 139.6 mmHg (75.0-100.0); AaDO2 90.4 mmHg; COHb 0.4 % (0.5-1.5); O2Hb 98.1 % (94.0-97.0); SITE, ABG Left Radial
[2020-04-27] MEDS ORDERED: DEXTROSE 50%-WATER 50 ML DISP.SYRIN IV PRN (13:30)
[2020-04-27] MEDS: SOD FERRIC GLUC 125 MG in IV NS 0.9% 100 ML IV SCH (15:01)
[2020-04-27] MEDS: APIXABAN 2.5 MG TABLET GT SCH ×2 (17:00→17:55)
[2020-04-27] MEDS: BLOOD SUGAR DIAGNOSTIC 1 EACH STRIP IN SCH (17:53)
[2020-04-27] MEDS ORDERED: VANCOMYCIN 500 MG in IV D5W 100 ML IV PRN (18:00)
[2020-04-27] MEDS ORDERED: VANCOMYCIN 1 GM in IV D5W 250 ML IV ONE (18:00)
[2020-04-27] MEDS ORDERED: EPOETIN ALFA (10,000 UNIT) 10,000 UNIT/ML VIAL IV ONE (18:30)
[2020-04-27] MEDS: INSULIN REGULAR, HUMAN 100 UNIT/ML 3 ML VIAL SQ PRN (19:13)
--- NOTE | 2020-04-27 19:30 | NUR ---
MATERIALS BRANCH CHIEF NOTES RECEIVED PATIENT IN BED OBTUNDED OPENS HER EYES. BREATHING NORMAL NO SOB NO S/S OF DISTRESS NOTED. ON VENT SETTING TOLERATING WELL ORDERED. TELE MONITOR READING AFIB. IV SITES ARE INTACT PATENT FLUIDS ARE RUNNING WELL.GT INTACT PATENT, NOTED WITH MINIMAL RESIDUAL. SKIN WARM AND DRY TO TOUCH. SAFETY MEASURES IN PLACE, BED IN LOW AND LOCKED POSITION. CALL LIGHT WITHIN REACH. WILL CONT TO MONITOR.
--- NOTE | 2020-04-27 19:43 | NUR ---
END OF SHIFT NOTE: PT HAD DIALYSIS THIS AM, ENDED AT 1015, 2L OFF PER LONGWALL FOREMAN. LEVOPHED GTT TITRATED OFF PER MD ORDERS AT 1630. PT HAD 1 BM THIS SHIFT AT 1845, BM WAS BLOODY, ELIQUIS WAS HELD. DVT PUMPS APPLIED TO PATIENT. TUBE FEEDING STARTED AT 1845 PER MD ORDERS, NEPRO 65ML/HR TO RUN 18 HOURS/DAY. NO URINE OUTPUT THIS SHIFT. PT CHECKED ON HOURLY AND PRN BY NURSING STAFF.
[2020-04-27] MEDS: MEROPENEM 500 MG in IV NS 0.9% 50 ML IV SCH (20:06)
[2020-04-27] MEDS: HYDROCORTISONE 1% CREAM 28.35 GM TUBE TP SCH (20:37)
[2020-04-27] MEDS: CLOTRIMAZOLE/BETAMETASONE DIPROPIONATE 15 GM TUBE TP SCH (20:38)
[2020-04-27] MEDS: INSULIN GLARGINE, 100 UNIT/ML CARTRIDGE SQ SCH (22:28)
[2020-04-28] VITALS (54 sets, daily range): BP systolic 66–161; BP diastolic 28–127
[2020-04-28] MEDS: BLOOD SUGAR DIAGNOSTIC 1 EACH STRIP IN SCH ×5 (00:10→23:35)
[2020-04-28] MEDS: INSULIN REGULAR, HUMAN 100 UNIT/ML 3 ML VIAL SQ PRN ×4 (00:22→23:34)
--- NOTE | 2020-04-28 02:46 | NUR ---
RECEIVED CALL FROM [employer] REGARDING COVID RESULT IS NEGATIVE.
[2020-04-28] MEDS: IV D5/ 0.9% NACL 1,000 ML IV PRN (04:29)
[2020-04-28 04:50] LABS: BASOPHILS % (AUTO) 0.2 % (0.0-2.0); EOSINOPHILS % (AUTO) 0.1 % (0.0-6.0); HEMATOCRIT 24 % (33-45); HEMOGLOBIN 7.4 g/dL (11.5-14.8); LYMPHOCYTES # (AUTO) 0.4 /CMM (0.8-4.8); LYMPHOCYTES % (AUTO) 4.2 % (20.0-44.0); MEAN CORPUSCULAR HGB CONC 32 g/dl (31.0-36.0); MEAN CORPUSCULAR VOLUME 106 fL (82-100); MONOCYTES # (AUTO) 0.7 /CMM (0.1-1.30); MONOCYTES % (AUTO) 6.7 % (2.0-12.0); NEUTROPHILS # (AUTO) 9.2 /CMM (1.8-8.9); NEUTROPHILS % (AUTO) 88.8 % (43.0-81.0); PLATELET COUNT (AUTO) 81 /CMM (150-450); RED BLOOD CELL COUNT(AUTO) 2.23 MIL/uL (4.0-5.2); WHITE BLOOD COUNT (AUTO) 10.3 K/uL (4.3-11.0)
[2020-04-28 05:07] LABS: ALANINE AMINOTRANSFERASE 31 U/L (12-78); ALBUMIN 2.6 g/dL (3.4-5.0); ALKALINE PHOSPHATASE 485 U/L (46-116); ASPARTATE AMINOTRANSFERASE 29 U/L (15-37); BILIRUBIN,TOTAL 0.4 mg/dL (0.2-1.0); CARBON DIOXIDE 25 mmol/L (21-32); CHLORIDE 107 mmol/L (98-107); CREATININE 4.4 mg/dL (0.6-1.3); GLUCOSE 177 mg/dL (74-106); MAGNESIUM 2.6 mg/dL (1.8-2.4); PHOSPHORUS 2.8 mg/dL (2.5-4.9); POTASSIUM 3.3 mmol/L (3.5-5.1); SODIUM SERUM 146 mmol/L (136-145); TOTAL PROTEIN, SERUM 6.2 g/dL (6.4-8.2)
[2020-04-28 05:14] LABS: CALCIUM, SERUM 6.2 mg/dL (8.5-10.1); UREA NITROGEN, BLOOD 88 mg/dL (7-18)
[2020-04-28 05:35] LABS: BAND % (MANUAL) 9 % (0.0-5.0); LYMPHOCYTES % (MANUAL) 4 % (16-48); MONOCYTES % (MANUAL) 2 % (0-11.0); NEUTROPHILS % (MANUAL) 85 (42-76)
[2020-04-28] MEDS ORDERED: VANCOMYCIN 500 MG in IV D5W 100 ML IV PRN (06:00)
--- NOTE | 2020-04-28 07:09 | NUR ---
BOILING TUB OPERATOR NOTES NO CHANGES NOTED DURING SHIFT. VENT SETTING TOLERATING WELL ORDERED. GTF RUNNING PATIENT TOLERATING WELL MINIMAL RESIDUAL NOTED. IV SITES INTACT FLUIDS AND ATB RUNNING WELL. BED BATH GIVEN PATIENT TOLERATED WELL. F/C INTACT PATENT NO URINE OUT PUT NOTED DURING SHIFT. KEPT CLEAN AND COMFORTABLE. ALL NEEDS ATTENDED. SAFETY MEASURES IN PLACE, BED IN LOW AND LOCKED POSITION. CALL LIGHT WITHIN REACH. WILL ENDORSE TO AM NURSE FOR JOHN.
[2020-04-28] MEDS: DOCUSATE SODIUM LIQ 100 MG/10 ML UDC GT SCH (08:17)
[2020-04-28] MEDS: CLOTRIMAZOLE/BETAMETASONE DIPROPIONATE 15 GM TUBE TP SCH ×2 (08:19→16:06)
[2020-04-28] MEDS: HYDROCORTISONE 1% CREAM 28.35 GM TUBE TP SCH ×2 (08:19→16:05)
[2020-04-28] MEDS: Z GUARD REMEDY 2 OZ OINT TP SCH (08:20)
--- NOTE | 2020-04-28 08:20 | NUR ---
DR. LYONS NOTIFIED OF BLACK BLOODY STOOLS AND SMALL CLOTS AROUND GT SITE. ORDER TO HOLD EARNESTINE TODAY.
[2020-04-28] MEDS ORDERED: FAMOTIDINE (20 MG) 20 MG TABLET GT SCH (09:00)
[2020-04-28] MEDS ORDERED: INSULIN NPH, HUMAN ISOPHANE 100 UNIT/ML VIAL SQ SCH (09:00)
--- NOTE | 2020-04-28 09:20 | NUR ---
PROPERTY MANAGEMENT ASSISTANT HERE TO START DIALYSIS ON PT. ALL AM MEDS HELD TILL AFTER DIALYSIS IS FINISHED.
--- NOTE | 2020-04-28 10:02 | NUR ---
PER DR. KUN SOSA HOLD TUBE FEEDING TILL SEEN BY GI, OK TO GIVE MEDS THROUGH PEG TUBE. OK TO INSERT RECTAL TUBE FOR FREQUENT LIQUID STOOLS. DR. SOSA STATED PLANS FOR PATIENT ARE TO HAVE DIALYSIS EARLY TOMORROW AM, THEN THE PERMACATH IS TO BE TAKEN OUT D/T INFECTION. THE NEW PERMACATH MIGHT BE INSERTED ON SUNDAY, GIVING PATIENT A LINE VACATION. NO DIALYSIS Sun OR SUNDAY OR UNTIL NEW LINE IS PLACED. DR. SOSA ALSO ORDERED TO KEEP PATIENT IN ICU 1 MORE DAY D/T SEPSIS AND INSTABILITY WITH BLEEDING.
[2020-04-28] MEDS: ESCITALOPRAM OXALATE (10 MG) 10 MG TABLET GT SCH (12:12)
[2020-04-28] MEDS: HYDROCORTISONE SOD SUCCINATE 100 MG/2 ML VIAL IV SCH ×3 (12:12→18:27)
[2020-04-28] MEDS: LORATADINE 10 MG TABLET GT SCH (12:14)
[2020-04-28] MEDS: GABAPENTIN 100 MG CAPSULE GT SCH (12:14)
[2020-04-28] MEDS: LEVOTHYROXINE SODIUM 75 MCG TABLET GT SCH (12:14)
[2020-04-28] MEDS: LOSARTAN POTASSIUM 50 MG TABLET GT SCH (12:14)
[2020-04-28] MEDS ORDERED: IV D5/ 0.9% NACL 1,000 ML IV ONE (13:00)
[2020-04-28] MEDS: SOD FERRIC GLUC 125 MG in IV NS 0.9% 100 ML IV SCH (15:02)
[2020-04-28] MEDS ORDERED: PANTOPRAZOLE 40 MG VIAL IV SCH (17:00)
[2020-04-28] MEDS ORDERED: LIDOCAINE 1%-EPI 1:100,000 20 ML VIAL TP ONE (18:30)
--- NOTE | 2020-04-28 19:37 | NUR ---
END OF SHIFT NOTE: PER PREVIOUS NOTE PT HAD BLOODY STOOL AND SMALL CLOTS OOZING FROM AROUND PEG TUBE SITE. TUBE FEEDING ON HOLD, RECTAL TUBE INSERTED. PT HAD DIALYSIS 2L REMOVED. PT WILL HAVE DIALYSIS TOMORROW MORNING THEN DIALYSIS CATHETER WILL BE REMOVED BY DR. KUN SOSA, CONSENT IS ON THE CHART. PT CHECKED ON HOURLY AND PRN BY NURSING STAFF.
--- NOTE | 2020-04-28 19:45 | NUR ---
ICU/SCIENCE FACULTY MEMBER REPORT RECEIVED FROM THE TO DAY NURSE. SEE FLOWSHEET FOR ASSESSMENT, SKIN ISSUES ARE ADDRESSED ON FLOWSHEET ALONG WITH INTERVENTION TO EACH. PT IS NONVERBAL, OPENS EYES WITH PERIODS OF RESTLESS. PT IS WITH TRACH TOLERATED WELL WITH SATURATION AT 99-100%. WILL MONITOR THIS PT AND HER SATURATION. PT WAS TURNED AND REPOSITIONED FOR COMFORT AND CARE. NO ACUTE DISTRESS SEEN AT THIS TIME.
[2020-04-28] MEDS: MEROPENEM 500 MG in IV NS 0.9% 50 ML IV SCH (20:04)
--- NOTE | 2020-04-28 20:45 | NUR ---
ICU/TIRE CENTER SUPERVISOR LAB CALLED WITH CRITICAL RESULT MRSA NARES. MARLA Harris CALLED ABOUT THIS GOT ORDER FOR BACTROBAN X5DAYS. ORDER RECEIVED AND CARRIED OUT.
[2020-04-28] MEDS: MUPIROCIN OINT 2% 22 GM TUBE SCH (21:16)
--- NOTE | 2020-04-28 21:25 | NUR ---
RT NOTE Pt rec'd trached on [facility] vent on AC mode. Pt shows no signs of resp distress or sob noted. trach is patent and secured. pt sx'd for thick mod amt of pale yellow secretions. alarms are set and audible. ambu bag bedside. Vent plugged into red outlet. will continue to monitor. Addendum: 04/28/20 at 2126 by ADRIANA BENNETT RT Amended: Links added.
--- NOTE | 2020-04-28 21:30 | NUR ---
ICU/FOOD ADVISER SUPPLIES WERE GATHERED FOR IAN TO REMOVE HD CATH AFTER HD ON 04/29/20. ITEMS WERE PLACED AT BEDSIDE.
--- NOTE | 2020-04-28 22:45 | NUR ---
ICU/HEATER FURNACE PT WAS GIVEN PM CARE, ALONG WITH ORAL CARE. PT TOLERATED THIS WELL, REMAINS ON CURRENT VENT SETTING WITH SATURATION AT 100%. PT WAS TURNED AND REPOSITIONED FOR COMFORT AND CARE. WILL CONTINUE TO MONITOR THIS PT, NO ACUTE DISTRESS SEEN AT THIS TIME.
[2020-04-28] MEDS: INSULIN GLARGINE, 100 UNIT/ML CARTRIDGE SQ SCH (23:34)
[2020-04-29] VITALS (34 sets, daily range): BP systolic 116–183; BP diastolic 58–119
--- NOTE | 2020-04-29 00:10 | NUR ---
ICU/NEUROLOGY MANAGER PT'S BLOOD PRESSURE IS 160'S TO 170'S WITH NO PRN, CALL PLACED MISSY Harris FOR PRN. 0035-CALL BACK WAS RECEIVED MARLA PLACED ORDER FOR HYDRALAZINE 10MG PRN FOR BP GREATER THAN 160.
[2020-04-29] MEDS: hydrALAZINE HCL IV 20 MG VIAL IV PRN ×3 (00:57→23:41)
--- NOTE | 2020-04-29 01:00 | NUR ---
ICU/LIFE SKILLS CONSULTANT PT'S BP IS 180/68, HYDRALAZINE 10MG GIVEN IVP BY CHARGE NURSE. WILL CONTINUE TO MONITOR THIS PT AND HER BP.
--- NOTE | 2020-04-29 02:30 | NUR ---
ICU/WHIZZER OPERATOR PT WAS GIVEN AM CARE, ALONG WITH ORAL CARE. PT TOLERATED THIS WELL, REMAINS ON CURRENT VENT SETTING WITH SATURATION AT 100%. PT WAS TURNED AND REPOSITIONED FOR COMFORT AND CARE. WILL CONTINUE TO MONITOR THIS PT, NO ACUTE DISTRESS SEEN AT THIS TIME.
[2020-04-29 04:04] LABS: BASOPHILS # (AUTO) 0.1 /CMM (0.0-0.2); BASOPHILS % (AUTO) 0.7 % (0.0-2.0); EOSINOPHILS % (AUTO) 0.3 % (0.0-6.0); HEMATOCRIT 25 % (33-45); HEMOGLOBIN 7.8 g/dL (11.5-14.8); LYMPHOCYTES # (AUTO) 0.5 /CMM (0.8-4.8); LYMPHOCYTES % (AUTO) 6.5 % (20.0-44.0); MEAN CORPUSCULAR HGB CONC 31 g/dl (31.0-36.0); MEAN CORPUSCULAR VOLUME 105 fL (82-100); MONOCYTES # (AUTO) 0.7 /CMM (0.1-1.30); MONOCYTES % (AUTO) 8.9 % (2.0-12.0); NEUTROPHILS # (AUTO) 6.9 /CMM (1.8-8.9); NEUTROPHILS % (AUTO) 83.6 % (43.0-81.0); PLATELET COUNT (AUTO) 82 /CMM (150-450); WHITE BLOOD COUNT (AUTO) 8.3 K/uL (4.3-11.0)
[2020-04-29 04:13] LABS: CALCIUM, SERUM 8.1 mg/dL (8.5-10.1); CARBON DIOXIDE 28 mmol/L (21-32); CHLORIDE 113 mmol/L (98-107); CREATININE 3.6 mg/dL (0.6-1.3); GLUCOSE 151 mg/dL (74-106); MAGNESIUM 2.4 mg/dL (1.8-2.4); PHOSPHORUS 3.5 mg/dL (2.5-4.9); POTASSIUM 2.9 mmol/L (3.5-5.1); SODIUM SERUM 152 mmol/L (136-145); UREA NITROGEN, BLOOD 55 mg/dL (7-18)
[2020-04-29 04:39] LABS: BAND % (MANUAL) 3 % (0.0-5.0); LYMPHOCYTES % (MANUAL) 6 % (16-48); MONOCYTES % (MANUAL) 6 % (0-11.0); NEUTROPHILS % (MANUAL) 85 (42-76)
[2020-04-29] MEDS ORDERED: IV D5/ 0.9% NACL 1,000 ML IV PRN (05:30)
--- NOTE | 2020-04-29 05:30 | NUR ---
ICU/SHERIFF SERGEANT AM LABS WERE DONE ALONG WITH CHEST XRAY, AWAIT FOR ANY ABNORMAL RESULTS.
[2020-04-29] MEDS: BLOOD SUGAR DIAGNOSTIC 1 EACH STRIP IN SCH ×3 (05:42→17:28)
[2020-04-29] MEDS: INSULIN REGULAR, HUMAN 100 UNIT/ML 3 ML VIAL SQ PRN (05:45)
--- NOTE | 2020-04-29 07:04 | NUR ---
ICU/LIPCOAT SPRAYER DIALYSIS IS NOW BEING DONE. @0182-BLOOD CULTURES WERE DONE OFF LINE.
--- NOTE | 2020-04-29 07:32 | NUR ---
rn initial notes received pt awake , nonverbal. vent settings tolerated well. hd on going. rectal tube and moreira cath in place. remains npo, awaiting for gi consult. restraints in place as ordered; skin and circulation wnl. safety ensured. will continue to monitor
[2020-04-29] MEDS: HYDROCORTISONE SOD SUCCINATE 100 MG/2 ML VIAL IV SCH ×3 (08:40→17:28)
[2020-04-29] MEDS: ESCITALOPRAM OXALATE (10 MG) 10 MG TABLET GT SCH (08:43)
[2020-04-29] MEDS: DOCUSATE SODIUM LIQ 100 MG/10 ML UDC GT SCH (08:43)
[2020-04-29] MEDS: GABAPENTIN 100 MG CAPSULE GT SCH (08:43)
[2020-04-29] MEDS: PANTOPRAZOLE 40 MG VIAL IV SCH (08:43)
[2020-04-29] MEDS: LOSARTAN POTASSIUM 50 MG TABLET GT SCH (08:43)
[2020-04-29] MEDS: LORATADINE 10 MG TABLET GT SCH (08:44)
[2020-04-29] MEDS: LEVOTHYROXINE SODIUM 75 MCG TABLET GT SCH (08:44)
[2020-04-29] MEDS: MUPIROCIN OINT 2% 22 GM TUBE SCH ×2 (08:45→22:13)
[2020-04-29] MEDS: HYDROCORTISONE 1% CREAM 28.35 GM TUBE TP SCH ×2 (08:45→17:40)
[2020-04-29] MEDS: Z GUARD REMEDY 2 OZ OINT TP SCH (08:45)
[2020-04-29] MEDS: CLOTRIMAZOLE/BETAMETASONE DIPROPIONATE 15 GM TUBE TP SCH ×2 (08:45→17:41)
[2020-04-29] MEDS ORDERED: APIXABAN 2.5 MG TABLET GT SCH (09:00)
[2020-04-29] MEDS: POTASSIUM CHLORIDE 20 MEQ POWDER PACKET GT SCH ×2 (10:28→10:30)
[2020-04-29] MEDS ORDERED: POTASSIUM CHLORIDE 20 MEQ POWDER PACKET GT SCH (12:00)
--- NOTE | 2020-04-29 12:00 | NUR ---
rn notes 1030 sched kcl duplicate order
[2020-04-29] MEDS ORDERED: LIDOCAINE HCL/MPF 1% 30 ML VIAL IJ ONE (13:12)
--- NOTE | 2020-04-29 14:09 | NUR ---
rn notes moreira cath removed ; and left chest perma cath removed by Dr Cramer with pressure dressing applied. no bleeding noted
[2020-04-29] MEDS: SOD FERRIC GLUC 125 MG in IV NS 0.9% 100 ML IV SCH (14:49)
--- NOTE | 2020-04-29 17:50 | NUR ---
rn notes pt resting in bed and noted with elevated bp levels; asymptomatic. prn med given as ordered
[2020-04-29] MEDS ORDERED: Potassium Chloride 40 MEQ in IV D5/0.45 NACL 1,000 ML IV PRN (18:18)
[2020-04-29] MEDS: AMPICILLIN 1 GM in IV NS 0.9% 50 ML IV SCH (18:44)
--- NOTE | 2020-04-29 18:55 | NUR ---
rn closing notes pt awake in bed , nad. trach in place and vent settings tolerated well. remains on npo, meds given thru gt; awaiting for gi consult. moreira removed this shift; anuric. left chest perma cath removed; no bleeding with pressure dressing in place. picc line removed; tip sent ofr culture. turned and repositioned, kci mattress in place. al needs attended. sinus meggan on the monitor, hr 50-60s. rt wrist restraint released, skin and circulation wnl. endorsed to next shift rn for continuity of care Addendum: 04/29/20 at 1901 by MARIE ROSAS RN afib on the monitor
[2020-04-29] MEDS: INSULIN GLARGINE, 100 UNIT/ML CARTRIDGE SQ SCH (22:00)
[2020-04-30] VITALS (44 sets, daily range): BP systolic 67–207; BP diastolic 23–133
[2020-04-30] MEDS: BLOOD SUGAR DIAGNOSTIC 1 EACH STRIP IN SCH ×5 (00:26→23:57)
[2020-04-30] MEDS: INSULIN REGULAR, HUMAN 100 UNIT/ML 3 ML VIAL SQ PRN ×3 (00:27→23:58)
[2020-04-30] MEDS: AMPICILLIN 1 GM in IV NS 0.9% 50 ML IV SCH ×3 (02:27→17:02)
[2020-04-30 04:00] LABS: BASOPHILS % (AUTO) 0.2 % (0.0-2.0); EOSINOPHILS % (AUTO) 0.2 % (0.0-6.0); HEMATOCRIT 27 % (33-45); HEMOGLOBIN 8.3 g/dL (11.5-14.8); LYMPHOCYTES # (AUTO) 0.8 /CMM (0.8-4.8); LYMPHOCYTES % (AUTO) 8.6 % (20.0-44.0); MEAN CORPUSCULAR HGB CONC 31 g/dl (31.0-36.0); MEAN CORPUSCULAR VOLUME 107 fL (82-100); MONOCYTES # (AUTO) 0.9 /CMM (0.1-1.30); MONOCYTES % (AUTO) 10.1 % (2.0-12.0); NEUTROPHILS # (AUTO) 7.4 /CMM (1.8-8.9); NEUTROPHILS % (AUTO) 80.9 % (43.0-81.0); PLATELET COUNT (AUTO) 101 /CMM (150-450); RED BLOOD CELL COUNT(AUTO) 2.51 MIL/uL (4.0-5.2); WHITE BLOOD COUNT (AUTO) 9.2 K/uL (4.3-11.0)
[2020-04-30 04:18] LABS: CALCIUM, SERUM 8.7 mg/dL (8.5-10.1); CARBON DIOXIDE 28 mmol/L (21-32); CHLORIDE 117 mmol/L (98-107); CREATININE 3.5 mg/dL (0.6-1.3); GLUCOSE 137 mg/dL (74-106); MAGNESIUM 2.3 mg/dL (1.8-2.4); POTASSIUM 3.6 mmol/L (3.5-5.1); SODIUM SERUM 154 mmol/L (136-145); UREA NITROGEN, BLOOD 41 mg/dL (7-18)
[2020-04-30 04:23] LABS: LYMPHOCYTES % (MANUAL) 7 % (16-48); MONOCYTES % (MANUAL) 13 % (0-11.0); NEUTROPHILS % (MANUAL) 80 (42-76)
--- NOTE | 2020-04-30 06:29 | NUR ---
RN notes In bed resting comfortably with no distress noted. Vent setting well tolerated. Breathing even and unlabored. Alert, awake. Nods or shakes head if asked a yes or no question. No physical manifestation of pain or discomfort. On IV hydration NS @75mls/hr tolerating well. Administer 10mg iv push of hydralazine for BP>180. Kept clean and dry. Will endorse to next shift for continuity of care.
[2020-04-30] MEDS: LEVOTHYROXINE SODIUM 75 MCG TABLET GT SCH (08:31)
[2020-04-30] MEDS: ESCITALOPRAM OXALATE (10 MG) 10 MG TABLET GT SCH (08:31)
[2020-04-30] MEDS: LORATADINE 10 MG TABLET GT SCH (08:31)
[2020-04-30] MEDS: LOSARTAN POTASSIUM 50 MG TABLET GT SCH (08:32)
[2020-04-30] MEDS: MUPIROCIN OINT 2% 22 GM TUBE SCH ×2 (08:32→20:57)
[2020-04-30] MEDS: HYDROCORTISONE SOD SUCCINATE 100 MG/2 ML VIAL IV SCH ×3 (08:32→17:02)
[2020-04-30] MEDS: HYDROCORTISONE 1% CREAM 28.35 GM TUBE TP SCH ×2 (08:33→17:03)
[2020-04-30] MEDS: PANTOPRAZOLE 40 MG VIAL IV SCH (08:33)
[2020-04-30] MEDS: DOCUSATE SODIUM LIQ 100 MG/10 ML UDC GT SCH (08:33)
[2020-04-30] MEDS: CLOTRIMAZOLE/BETAMETASONE DIPROPIONATE 15 GM TUBE TP SCH ×2 (08:34→17:03)
[2020-04-30] MEDS: Z GUARD REMEDY 2 OZ OINT TP SCH (08:34)
[2020-04-30] MEDS: GABAPENTIN 100 MG CAPSULE GT SCH (08:37)
[2020-04-30] MEDS: hydrALAZINE HCL IV 20 MG VIAL IV PRN ×2 (08:48→19:57)
--- NOTE | 2020-04-30 09:33 | NUR ---
received pt from night time nanny, alert, follows simple commands, A fib controlled, V/T chronic, sat well, HD patient, GT clamped, rectal tube intact, v/s stable, no pain, pt turned and repositioned.
[2020-04-30] MEDS: IV D5W 1,000 ML IV PRN (12:37)
[2020-04-30] MEDS: SOD FERRIC GLUC 125 MG in IV NS 0.9% 100 ML IV SCH (15:27)
--- NOTE | 2020-04-30 16:16 | NUR ---
pt is resting in the bed, alert, follows simple command, A fib controlled, still leaking around the GT stoma, v/s stable, no pain, pt cleaned, changed and repositioned q2hrs.
--- NOTE | 2020-04-30 20:10 | NUR ---
ICU/BRIDGE INSTRUCTOR PT'S BLOOD PRESSURE HAD BEEN TRENDING UP WITH BP 170'S TO 190'S, CURRENT BP IS 207/66. NOTIFIED CHARGE NURSE WHO THEN GAVE APRESOLINE 10MG IVP FOR THIS BP. WILL CONTINUE TO MONITOR THIS PT AND HER BP.
--- NOTE | 2020-04-30 22:30 | NUR ---
ICU/SEED LABORATORY ASSISTANT PT WAS GIVEN PM CARE, ALONG WITH ORAL CARE. PT TOLERATED THIS WELL, REMAINS ON CURRENT VENT SETTING WITH SATURATION AT 100%. PT WAS TURNED AND REPOSITIONED FOR COMFORT AND CARE. WILL CONTINUE TO MONITOR THIS PT, NO ACUTE DISTRESS SEEN AT THIS TIME.
[2020-04-30] MEDS: INSULIN GLARGINE, 100 UNIT/ML CARTRIDGE SQ SCH (23:57)
[2020-05-01] VITALS (25 sets, daily range): BP systolic 96–177; BP diastolic 43–96
--- NOTE | 2020-05-01 00:10 | NUR ---
ICU/DETONATOR MAKER MIDNIGHT ACCU CHECK IS 188, THIS WAS COVERED WITH SLIDING SCALE ORDERED BY MD AND HOSPITAL PROTOCOL. WILL CONTINUE TO MONITOR PT'S BLOOD SUGARS ORDERED.
[2020-05-01] MEDS: IV D5W 1,000 ML IV PRN (02:00)
[2020-05-01] MEDS: AMPICILLIN 1 GM in IV NS 0.9% 50 ML IV SCH ×3 (02:00→17:03)
--- NOTE | 2020-05-01 02:30 | NUR ---
ICU/INSPECTOR WATCH PARTS PT WAS GIVEN AM CARE, ALONG WITH ORAL CARE. PT TOLERATED THIS WELL, REMAINS ON CURRENT VENT SETTING WITH SATURATION AT 100%. PT WAS TURNED AND REPOSITIONED FOR COMFORT AND CARE. WILL CONTINUE TO MONITOR THIS PT, NO ACUTE DISTRESS SEEN AT THIS TIME.
--- NOTE | 2020-05-01 03:45 | NUR ---
ICU/RESPIRATORY THERAPY MANAGER UNABLE TO GET BLOOD DRAW FROM PERIPHERAL, WILL TRY AGAIN.
--- NOTE | 2020-05-01 05:40 | NUR ---
IAN SR [phone] & JULIAN SR [phone] DAUGHTER GAVE CONSENT FOR EDG, ANESTHESIA, AND BLOOD.
[2020-05-01 06:10] LABS: BASOPHILS % (AUTO) 0.2 % (0.0-2.0); EOSINOPHILS % (AUTO) 0.2 % (0.0-6.0); HEMATOCRIT 28 % (33-45); HEMOGLOBIN 8.6 g/dL (11.5-14.8); LYMPHOCYTES # (AUTO) 0.8 /CMM (0.8-4.8); LYMPHOCYTES % (AUTO) 8.4 % (20.0-44.0); MEAN CORPUSCULAR HGB CONC 30 g/dl (31.0-36.0); MEAN CORPUSCULAR VOLUME 108 fL (82-100); MONOCYTES # (AUTO) 0.9 /CMM (0.1-1.30); MONOCYTES % (AUTO) 9.1 % (2.0-12.0); NEUTROPHILS # (AUTO) 8.1 /CMM (1.8-8.9); NEUTROPHILS % (AUTO) 82.1 % (43.0-81.0); PLATELET COUNT (AUTO) 98 /CMM (150-450); WHITE BLOOD COUNT (AUTO) 9.8 K/uL (4.3-11.0)
[2020-05-01 06:29] LABS: CALCIUM, SERUM 8.5 mg/dL (8.5-10.1); CARBON DIOXIDE 24 mmol/L (21-32); CHLORIDE 113 mmol/L (98-107); CREATININE 4.3 mg/dL (0.6-1.3); GLUCOSE 121 mg/dL (74-106); MAGNESIUM 2.2 mg/dL (1.8-2.4); PHOSPHORUS 5.1 mg/dL (2.5-4.9); POTASSIUM 3.9 mmol/L (3.5-5.1); SODIUM SERUM 148 mmol/L (136-145); UREA NITROGEN, BLOOD 49 mg/dL (7-18)
[2020-05-01] MEDS: BLOOD SUGAR DIAGNOSTIC 1 EACH STRIP IN SCH ×3 (06:37→18:29)
--- NOTE | 2020-05-01 06:54 | NUR ---
ICU/LEARNING AND DEVELOPMENT CONSULTANT HOUSE SUP. AWARE OF THE NEED FOR MIDLINE.
[2020-05-01] MEDS: LEVOTHYROXINE SODIUM 75 MCG TABLET GT SCH ×2 (07:30→07:43)
[2020-05-01] MEDS: hydrALAZINE HCL IV 20 MG VIAL IV PRN (07:43)
[2020-05-01] MEDS: LORATADINE 10 MG TABLET GT SCH (08:22)
[2020-05-01] MEDS: DOCUSATE SODIUM LIQ 100 MG/10 ML UDC GT SCH (08:22)
[2020-05-01] MEDS: GABAPENTIN 100 MG CAPSULE GT SCH (08:23)
[2020-05-01] MEDS: LOSARTAN POTASSIUM 50 MG TABLET GT SCH (08:23)
[2020-05-01] MEDS: HYDROCORTISONE 1% CREAM 28.35 GM TUBE TP SCH ×2 (08:23→16:13)
[2020-05-01] MEDS: HYDROCORTISONE SOD SUCCINATE 100 MG/2 ML VIAL IV SCH ×3 (08:23→16:12)
[2020-05-01] MEDS: MUPIROCIN OINT 2% 22 GM TUBE SCH ×2 (08:23→21:04)
[2020-05-01] MEDS: ESCITALOPRAM OXALATE (10 MG) 10 MG TABLET GT SCH (08:23)
[2020-05-01] MEDS: PANTOPRAZOLE 40 MG VIAL IV SCH (08:23)
[2020-05-01] MEDS: Z GUARD REMEDY 2 OZ OINT TP SCH (08:24)
[2020-05-01] MEDS: CLOTRIMAZOLE/BETAMETASONE DIPROPIONATE 15 GM TUBE TP SCH ×2 (08:24→16:14)
[2020-05-01 09:38] LABS: BAND % (MANUAL) 1 % (0.0-5.0); LYMPHOCYTES % (MANUAL) 11 % (16-48); MONOCYTES % (MANUAL) 8 % (0-11.0); MYELOCYTES % 2 % (0-0); NEUTROPHILS % (MANUAL) 78 (42-76)
--- NOTE | 2020-05-01 09:48 | NUR ---
RN NOTE 0715: Received patient resting. With trache to vent, tolerated setting. With GT clamped, noted with leakage. Will have EGD today. Able to answer yes/no questions. Afib 50-60's on the monitor. On Iso for MRSA nares and VRE blood, maintained and observed. On line holiday for bacteremia. On IVF D5W 100 until able to restart TF. Plan to have new HD line on Sunday. 0800: Noted with high BP, Hydralazine given as ordered, will continue to monitor. 0940: No any significant changes noted at this time.
[2020-05-01] MEDS ORDERED: CLONIDINE HCL 0.2MG/24H PTWK 1 EA PATCH TD SCH (10:00)
--- NOTE | 2020-05-01 12:16 | NUR ---
RN NOTE Done with EGD with Dr. Ben MD verbalized finding of gastritis, no active bleeding, may restart using GT for meds and TF. With room assigned to AMITA, will endorse care.
--- NOTE | 2020-05-01 12:59 | NUR ---
RN NOTE No any significant changes. VSS. Transferred to [facility] via bed and using ACLS protocol. Endorsed to Ailyn VASQUEZ.
--- NOTE | 2020-05-01 13:00 | NUR ---
RN NOTE RECEIVED PT FROM ICU IN ROOM 114-1, VENT/TRACH DEPENDENT , PT IS FOLLOWING SIMPLE COMMAND, NONVERBAL, OPENS EYES, A.FIB ON TELE HR IN 50'S , TOLERATING CURRENT VENT SETTING WELL, O2 SAT WNL, GT CLAMPED AND INTACT, R AC AND LAC IV SITE G 20 , CLEAN,DRY AND INTACT,SR UP x3, CALL LIGHT WITHIN EASY REACH , BED LOCKED AND IN LOWEST POSITION, CONTINUE TO MONITOR.
[2020-05-01] MEDS: NEPRO 1,000 ML BOTTLE GT PRN (13:41)
[2020-05-01] MEDS: SOD FERRIC GLUC 125 MG in IV NS 0.9% 100 ML IV SCH (14:25)
--- NOTE | 2020-05-01 18:51 | NUR ---
RN NOTES PT REMAINS THE SAME , NO SIGNIFICANT CHANGES NOTED, WILL ENDORSE TO GYRO MECHANIC NURSE FOR CONTINUITY OF CARE
--- NOTE | 2020-05-01 19:30 | NUR ---
RN OPENING NOTES Received patient resting on bed. No s/s of distress, pt is A/O x1. Responds to simple commands by moving head, nonverbal. The patient denies pain, no s/s of pain noted at this time. Client is on vent, settings monitored by RT. Client is on External monitor, Afib, HR 60's. All safety mechanisms in place at this time will continue to monitor.
--- NOTE | 2020-05-01 20:00 | NUR ---
Per previous nurse the D5 W has been stopped because the G tube feeding is [facility] Will ask the MD sunday if he would like to continue to run the D5w concurrent with the G tube Feeding.
--- NOTE | 2020-05-01 20:29 | NUR ---
Spoke with the daughter of the patient Suha Avery ( Daughter) at [phone] to get consent for Hemodialysis Catheter on 05/03/20. Suha Avery has agree to have the Hemodialysis catheter inserted on her mother Kusum Navarro.
[2020-05-01] MEDS: INSULIN GLARGINE, 100 UNIT/ML CARTRIDGE SQ SCH (23:15)
[2020-05-02] VITALS: BP_SYST 142; BP_SYST 147; BP_SYST 148; BP_DIAS 48; BP_DIAS 50; BP_DIAS 76
[2020-05-02] MEDS: BLOOD SUGAR DIAGNOSTIC 1 EACH STRIP IN SCH ×4 (00:28→17:46)
[2020-05-02] MEDS: INSULIN REGULAR, HUMAN 100 UNIT/ML 3 ML VIAL SQ PRN ×3 (00:31→17:45)
[2020-05-02] MEDS: IV D5W 1,000 ML IV PRN (01:32)
[2020-05-02] MEDS: AMPICILLIN 1 GM in IV NS 0.9% 50 ML IV SCH ×3 (02:39→17:46)
[2020-05-02 04:00] VITALS: BP 127/56
[2020-05-02 06:37] LABS: BASOPHILS % (AUTO) 0.1 % (0.0-2.0); EOSINOPHILS % (AUTO) 0.2 % (0.0-6.0); HEMATOCRIT 29 % (33-45); HEMOGLOBIN 8.8 g/dL (11.5-14.8); LYMPHOCYTES # (AUTO) 1.2 /CMM (0.8-4.8); LYMPHOCYTES % (AUTO) 11.3 % (20.0-44.0); MEAN CORPUSCULAR HGB CONC 31 g/dl (31.0-36.0); MEAN CORPUSCULAR VOLUME 110 fL (82-100); MONOCYTES # (AUTO) 0.9 /CMM (0.1-1.30); MONOCYTES % (AUTO) 8.7 % (2.0-12.0); NEUTROPHILS # (AUTO) 8.7 /CMM (1.8-8.9); NEUTROPHILS % (AUTO) 79.7 % (43.0-81.0); PLATELET COUNT (AUTO) 103 /CMM (150-450); RED BLOOD CELL COUNT(AUTO) 2.65 MIL/uL (4.0-5.2); WHITE BLOOD COUNT (AUTO) 10.9 K/uL (4.3-11.0)
--- NOTE | 2020-05-02 06:41 | NUR ---
RN CLOSING NOTES patient resting on bed. No s/s of distress, pt is A/O x1. Responds to simple commands by moving head, nonverbal. The patient denies pain, no s/s of pain noted at this time. Client is on vent, settings monitored by RT. Client is on External monitor, Afib, HR 60's. no change of condition during the shift. All safety mechanisms in place. Will endorse the incoming shift for the continuity of care.
[2020-05-02 06:50] LABS: CALCIUM, SERUM 8.6 mg/dL (8.5-10.1); CHLORIDE 112 mmol/L (98-107); CREATININE 5.7 mg/dL (0.6-1.3); GLUCOSE 139 mg/dL (74-106); MAGNESIUM 2.4 mg/dL (1.8-2.4); PHOSPHORUS 6.5 mg/dL (2.5-4.9); POTASSIUM 3.8 mmol/L (3.5-5.1); SODIUM SERUM 149 mmol/L (136-145); UREA NITROGEN, BLOOD 72 mg/dL (7-18)
[2020-05-02 07:23] LABS: CARBON DIOXIDE 21 mmol/L (21-32)
--- NOTE | 2020-05-02 07:30 | NUR ---
rn notes received patient asleep, but easily awaken by verbal stimuli. non verbal due to trach but patient is able to follow command and able to express self through gestures. [facility] tolerating vent setting at this time. sating well with breathing unlabored. not on any form of distress. no indication of pain noted at this time. sinus rhythm on the monitor with hr on the 70s. iv access on the on the faraz, in place with clean and dry dressing. ivf off at this time and will clarify with MD if okay to keep infusing since patient is on dialysis as schedule. gtf infusing well at desired rate. no gastric residual taken at this time. placement verified through auscultation and aspiration. patient looked comfortable in bed at this time. safety measures observed and maintained. srx2 raised. bed in low and lock position. will continue to monitor patient accordingly
[2020-05-02 08:00] VITALS: BP 121/69
[2020-05-02 08:53] LABS: MONOCYTES % (MANUAL) 6 % (0-11.0); NEUTROPHILS % (MANUAL) 85 (42-76)
[2020-05-02 08:55] LABS: LYMPHOCYTES % (MANUAL) 10 % (16-48)
[2020-05-02] MEDS: LEVOTHYROXINE SODIUM 75 MCG TABLET GT SCH (09:18)
[2020-05-02] MEDS: GABAPENTIN 100 MG CAPSULE GT SCH (09:19)
[2020-05-02] MEDS: ESCITALOPRAM OXALATE (10 MG) 10 MG TABLET GT SCH (09:19)
[2020-05-02] MEDS: DOCUSATE SODIUM LIQ 100 MG/10 ML UDC GT SCH (09:19)
[2020-05-02] MEDS: PANTOPRAZOLE 40 MG VIAL IV SCH (09:19)
[2020-05-02] MEDS: LOSARTAN POTASSIUM 50 MG TABLET GT SCH (09:19)
[2020-05-02] MEDS: LORATADINE 10 MG TABLET GT SCH (09:19)
[2020-05-02] MEDS: MUPIROCIN OINT 2% 22 GM TUBE SCH ×2 (09:20→21:16)
[2020-05-02] MEDS: HYDROCORTISONE SOD SUCCINATE 100 MG/2 ML VIAL IV SCH ×3 (09:20→17:45)
[2020-05-02] MEDS: HYDROCORTISONE 1% CREAM 28.35 GM TUBE TP SCH ×2 (09:20→17:46)
[2020-05-02] MEDS: CLOTRIMAZOLE/BETAMETASONE DIPROPIONATE 15 GM TUBE TP SCH ×2 (09:20→17:46)
[2020-05-02] MEDS: Z GUARD REMEDY 2 OZ OINT TP SCH (09:21)
[2020-05-02 12:00] VITALS: BP 130/74
[2020-05-02 16:00] VITALS: BP 128/68
[2020-05-02] MEDS: NEPRO 1,000 ML BOTTLE GT PRN (17:45)
--- NOTE | 2020-05-02 19:30 | NUR ---
RN OPENING NOTES Received patient resting on bed. No s/s of distress, pt is A/O x1. Responds to simple commands by moving head, nonverbal. The patient denies pain, no s/s of pain noted at this time. Client is on vent, settings monitored by RT. Client is on External monitor, Afib, HR 50's. All safety mechanisms in place at this time will continue to monitor.
[2020-05-02 20:00] VITALS: BP 147/85
[2020-05-02] MEDS: INSULIN GLARGINE, 100 UNIT/ML CARTRIDGE SQ SCH (22:37)
[2020-05-03] VITALS (7 sets, daily range): BP systolic 127–147; BP diastolic 54–76
[2020-05-03] MEDS: BLOOD SUGAR DIAGNOSTIC 1 EACH STRIP IN SCH ×4 (00:36→17:51)
[2020-05-03] MEDS: INSULIN REGULAR, HUMAN 100 UNIT/ML 3 ML VIAL SQ PRN ×3 (00:38→17:52)
[2020-05-03] MEDS: AMPICILLIN 1 GM in IV NS 0.9% 50 ML IV SCH ×3 (03:35→17:50)
[2020-05-03 06:35] LABS: BASOPHILS % (AUTO) 0.2 % (0.0-2.0); EOSINOPHILS % (AUTO) 0.3 % (0.0-6.0); HEMATOCRIT 30 % (33-45); HEMOGLOBIN 9.2 g/dL (11.5-14.8); LYMPHOCYTES # (AUTO) 1.3 /CMM (0.8-4.8); LYMPHOCYTES % (AUTO) 11.5 % (20.0-44.0); MEAN CORPUSCULAR HGB CONC 30 g/dl (31.0-36.0); MEAN CORPUSCULAR VOLUME 110 fL (82-100); MONOCYTES # (AUTO) 0.8 /CMM (0.1-1.30); NEUTROPHILS # (AUTO) 8.9 /CMM (1.8-8.9); PLATELET COUNT (AUTO) 98 /CMM (150-450); RED BLOOD CELL COUNT(AUTO) 2.77 MIL/uL (4.0-5.2)
[2020-05-03 06:54] LABS: CALCIUM, SERUM 8.7 mg/dL (8.5-10.1); CARBON DIOXIDE 22 mmol/L (21-32); CHLORIDE 110 mmol/L (98-107); CREATININE 6.2 mg/dL (0.6-1.3); GLUCOSE 168 mg/dL (74-106); MAGNESIUM 2.4 mg/dL (1.8-2.4); PHOSPHORUS 6.4 mg/dL (2.5-4.9); POTASSIUM 4.2 mmol/L (3.5-5.1); SODIUM SERUM 147 mmol/L (136-145)
[2020-05-03 07:29] LABS: UREA NITROGEN, BLOOD 91 mg/dL (7-18)
--- NOTE | 2020-05-03 07:30 | NUR ---
RN NOTES RECEIVED PATIENT BACK FROM MANAGER INVESTMENT NURSE. PATIENT WITH NO ACUTE CHANGES. WILL CONTINUE TO MONITOR AND ANTICIPATE NEEDS
[2020-05-03] MEDS: LEVOTHYROXINE SODIUM 75 MCG TABLET GT SCH (08:05)
[2020-05-03] MEDS: DOCUSATE SODIUM LIQ 100 MG/10 ML UDC GT SCH (09:25)
[2020-05-03] MEDS: ESCITALOPRAM OXALATE (10 MG) 10 MG TABLET GT SCH (09:25)
[2020-05-03] MEDS: LORATADINE 10 MG TABLET GT SCH (09:25)
[2020-05-03] MEDS: GABAPENTIN 100 MG CAPSULE GT SCH (09:25)
[2020-05-03] MEDS: PANTOPRAZOLE 40 MG VIAL IV SCH (09:26)
[2020-05-03] MEDS: HYDROCORTISONE SOD SUCCINATE 100 MG/2 ML VIAL IV SCH ×2 (09:26→17:50)
[2020-05-03] MEDS: MUPIROCIN OINT 2% 22 GM TUBE SCH ×2 (09:26→21:24)
[2020-05-03] MEDS: LOSARTAN POTASSIUM 50 MG TABLET GT SCH (09:26)
[2020-05-03] MEDS: CLOTRIMAZOLE/BETAMETASONE DIPROPIONATE 15 GM TUBE TP SCH ×2 (09:27→17:51)
[2020-05-03] MEDS: HYDROCORTISONE 1% CREAM 28.35 GM TUBE TP SCH ×2 (09:27→17:51)
[2020-05-03] MEDS: Z GUARD REMEDY 2 OZ OINT TP SCH (09:27)
--- NOTE | 2020-05-03 14:15 | NUR ---
RN NOTES CHRISTINA FISH (DIALYSIS NURSE) AT THE UNIT. I ASKED HIM IF PATIENT IS SCHEDULED FOR DIALYSIS TODAY SINCE DR. SOSA WITH ORDER FOR DIALYSIS TODAY. I INFORMED HIM THAT PATIENT IS ON LINE HOLIDAY AND PLANS WAS TO PLACE A DIALYSIS LINE BUT HAS NOT BEEN DONE YET. PER ABE, HE WILL CONTACT JULIO CESAR TO INQUIRE TO DR. SOSA. 1430: PER JULIO CESAR FISH TALK TO , AND THAT THE ORDERED TO RESCHEDULE THE DIALYSIS IN AM
--- NOTE | 2020-05-03 19:45 | NUR ---
RN OPENING NOTE RECEIVED PATIENT ON BED RESTING ON VENTILATOR,ALERT OPEN EYES,ALERT ORIENTED X1 ON G-TUBE FEEDING NEPHRO 1.8 45CC/HR RUNNING,G-TUBE SITE IS INTACT IN PLACE NO RESIDUAL NOTED,PATIENT IS DIALYSIS PATIENT HR ON BRADYCARDIA 50s,CONTINUE TO MONITOR.
[2020-05-03] MEDS: INSULIN GLARGINE, 100 UNIT/ML CARTRIDGE SQ SCH (21:50)
[2020-05-04] VITALS (7 sets, daily range): BP systolic 103–131; BP diastolic 55–82
[2020-05-04] MEDS: BLOOD SUGAR DIAGNOSTIC 1 EACH STRIP IN SCH ×4 (00:21→18:08)
[2020-05-04] MEDS: INSULIN REGULAR, HUMAN 100 UNIT/ML 3 ML VIAL SQ PRN ×4 (00:23→18:28)
[2020-05-04] MEDS: AMPICILLIN 1 GM in IV NS 0.9% 50 ML IV SCH ×3 (01:51→18:09)
--- NOTE | 2020-05-04 07:20 | NUR ---
RN CLOSING NOTE RESIDENT ALERT ORIENTED X1 ON VENTILATOR, ON G-TUBE FEEDING ALL DUE MEDS GIVEN VIA G-TUBE,ELEVATED HEAD OF BED ALL THE TIME,KEPT CLEAN AND DRY,PATIENT HR REMAINS ON 50s,ENDORSE TO COMING SHIFT FOR CONTINUATION OF CARE.
--- NOTE | 2020-05-04 07:30 | NUR ---
RN OPENING NOTES Received pt at bed, A/Ox2, patient is on ventilator, tolerating settings well, no s/sx of distress, O2 sat is 99%; G-TUBE feeding noted, running @ 45cc/hr, patent and intact; no residual noted, tolerating well. Flexe seal is noted, draining brown liquid stool, no leakage noted; patient scheduled for dialyses , waiting for cath and confirmation. Patient is on Telemonitor , A-FIB and the HR 58 noted. Safety measures implemented, call light within reach, side rails x2, bed in lowest position. Will continue to monitor.
[2020-05-04] MEDS: PANTOPRAZOLE 40 MG VIAL IV SCH (08:18)
[2020-05-04] MEDS: DOCUSATE SODIUM LIQ 100 MG/10 ML UDC GT SCH (08:18)
[2020-05-04] MEDS: HYDROCORTISONE SOD SUCCINATE 100 MG/2 ML VIAL IV SCH ×2 (08:20→16:28)
[2020-05-04] MEDS: LOSARTAN POTASSIUM 50 MG TABLET GT SCH (08:20)
[2020-05-04] MEDS: ESCITALOPRAM OXALATE (10 MG) 10 MG TABLET GT SCH (08:21)
[2020-05-04] MEDS: LEVOTHYROXINE SODIUM 75 MCG TABLET GT SCH (08:21)
[2020-05-04] MEDS: HYDROCORTISONE 1% CREAM 28.35 GM TUBE TP SCH ×2 (08:21→16:25)
[2020-05-04] MEDS: GABAPENTIN 100 MG CAPSULE GT SCH (08:21)
[2020-05-04] MEDS: MUPIROCIN OINT 2% 22 GM TUBE SCH ×2 (08:21→21:14)
[2020-05-04] MEDS: Z GUARD REMEDY 2 OZ OINT TP SCH (08:22)
[2020-05-04] MEDS: CLOTRIMAZOLE/BETAMETASONE DIPROPIONATE 15 GM TUBE TP SCH ×2 (08:22→16:25)
[2020-05-04] MEDS: LORATADINE 10 MG TABLET GT SCH (09:55)
--- NOTE | 2020-05-04 18:55 | NUR ---
RN CLOSING NOTES PATIENT REMAINS IN BED, ON VENTILATOR, TOLERATING WELL, SAFETY MEASURES PROVIDED, BED IN LOWEST POSITION, CALL LIGHT WITHIN REACH , WILL ENDORSE TO PM NURSE TO JOHN
[2020-05-04] MEDS: INSULIN GLARGINE, 100 UNIT/ML CARTRIDGE SQ SCH (21:13)
--- NOTE | 2020-05-04 22:24 | NUR ---
RN JOHN NOTES RECEIVED REPORT FROM MELINA MONSIVAIS RN FOR JOHN, PT IS ON BED AWAKE NON VERBAL OPEN EYES, ON VENT SETTING ORDERED NO SIGN AND SYMPTOMS OF DISTRESGT ON PLACE PATENT AND FLUSHED RESIDUAL CHECKED WITH ONGOING NEPRO @ 45CC/HR WITH RC # 20 AND LAC# 20, WITH HD CATH ON R FEMORAL MINIMAL BLEEDING WAS NOTED, PRESSURED WAS APPLY BY THE OUTGOING NURSE WILL CONT TO MONITOR,. PT IS ON TELE WITH CURRENT READING SINUS AMAN @ 58 WILL CONT TO MONITOR THE PT
--- NOTE | 2020-05-04 22:25 | NUR ---
RN NOTE ENDORSED TO CHRISTINA SILVER FOR CONTINUATION OF CARE.
[2020-05-05] VITALS (8 sets, daily range): BP systolic 134–177; BP diastolic 64–87
[2020-05-05] MEDS: BLOOD SUGAR DIAGNOSTIC 1 EACH STRIP IN SCH ×5 (00:25→23:26)
[2020-05-05] MEDS: hydrALAZINE HCL IV 20 MG VIAL IV PRN ×2 (00:27→17:16)
[2020-05-05] MEDS: INSULIN REGULAR, HUMAN 100 UNIT/ML 3 ML VIAL SQ PRN ×3 (00:30→23:27)
[2020-05-05] MEDS: AMPICILLIN 1 GM in IV NS 0.9% 50 ML IV SCH ×3 (02:27→17:29)
[2020-05-05] MEDS: NEPRO 1,000 ML BOTTLE GT PRN (06:01)
[2020-05-05 06:11] LABS: BASOPHILS % (AUTO) 0.4 % (0.0-2.0); HEMATOCRIT 30 % (33-45); HEMOGLOBIN 9.2 g/dL (11.5-14.8); LYMPHOCYTES # (AUTO) 1.1 /CMM (0.8-4.8); LYMPHOCYTES % (AUTO) 8.4 % (20.0-44.0); MEAN CORPUSCULAR HGB CONC 30 g/dl (31.0-36.0); MEAN CORPUSCULAR VOLUME 110 fL (82-100); MONOCYTES # (AUTO) 0.9 /CMM (0.1-1.30); MONOCYTES % (AUTO) 6.5 % (2.0-12.0); NEUTROPHILS # (AUTO) 10.8 /CMM (1.8-8.9); NEUTROPHILS % (AUTO) 79.7 % (43.0-81.0); PLATELET COUNT (AUTO) 104 /CMM (150-450); RED BLOOD CELL COUNT(AUTO) 2.76 MIL/uL (4.0-5.2); WHITE BLOOD COUNT (AUTO) 13.6 K/uL (4.3-11.0)
[2020-05-05 06:58] LABS: CALCIUM, SERUM 8.6 mg/dL (8.5-10.1); CARBON DIOXIDE 22 mmol/L (21-32); CHLORIDE 111 mmol/L (98-107); GLUCOSE 152 mg/dL (74-106); MAGNESIUM 2.6 mg/dL (1.8-2.4); PHOSPHORUS 6.7 mg/dL (2.5-4.9); POTASSIUM 4.3 mmol/L (3.5-5.1); SODIUM SERUM 149 mmol/L (136-145)
[2020-05-05 07:02] LABS: CREATININE 7.7 mg/dL (0.6-1.3); UREA NITROGEN, BLOOD 123 mg/dL (7-18)
--- NOTE | 2020-05-05 07:30 | NUR ---
RN OPENING NOTES RECEIVED PATIENT IN BED RESTING. NOTED WITH TRACH AND ON [facility] VENTILATOR. PATIENT IS RESPONSIVE. NOT IN ANY FORM OF DISTRESS. NO SOB. IV ACCESS INTACT AND PATENT. NOTED WITH RIGHT FEMORAL HD CATH WITH DRESSING C/D/I. ON TELEMONITOR AFIB HR 63. ON TUBE FEEDING, TOLERATING WELL, NO RESIDUAL NOTED. NOTED WITH FLEXISEAL WITH BROWN LIQUID STOOL. KEPT PATIENT SAFE AND COMFORTABLE. BED IN LOW/LOCKED POSITION, SIDERAILS UPX2, CALL LIGHT IN REACH. WILL CONTINUE TO MONITOR ACCORDINGLY.
--- NOTE | 2020-05-05 07:43 | NUR ---
RN CLOSING NOTES PT ON BED ASLEEP EASY TO AROUSE, ON VENT SETIING ORDERED NO SIGN AND SYMPTOMS OF RESPIRATORY DISTRESS SPO2 99% NO PAIN COMPLAINT, ALL NEEDS ATTENDED, SAFETY MEASURE MAINTAINED ON TELE MONITOR WITH READING SINUS AMAN 58 WILL ENDORSED TO AM SHIFT NURSE
[2020-05-05 07:46] LABS: BAND % (MANUAL) 1 % (0.0-5.0); EOSINOPHILS % (MANUAL) 6 % (0-4); LYMPHOCYTES % (MANUAL) 10 % (16-48); MONOCYTES % (MANUAL) 4 % (0-11.0); NEUTROPHILS % (MANUAL) 79 (42-76)
[2020-05-05] MEDS: LOSARTAN POTASSIUM 50 MG TABLET GT SCH (09:03)
[2020-05-05] MEDS: HYDROCORTISONE SOD SUCCINATE 100 MG/2 ML VIAL IV SCH ×2 (09:04→17:16)
[2020-05-05] MEDS: GABAPENTIN 100 MG CAPSULE GT SCH (09:04)
[2020-05-05] MEDS: LEVOTHYROXINE SODIUM 75 MCG TABLET GT SCH (09:04)
[2020-05-05] MEDS: ESCITALOPRAM OXALATE (10 MG) 10 MG TABLET GT SCH (09:05)
[2020-05-05] MEDS: LORATADINE 10 MG TABLET GT SCH (09:05)
[2020-05-05] MEDS: PANTOPRAZOLE 40 MG VIAL IV SCH (09:05)
[2020-05-05] MEDS: DOCUSATE SODIUM LIQ 100 MG/10 ML UDC GT SCH (09:05)
[2020-05-05] MEDS: MUPIROCIN OINT 2% 22 GM TUBE SCH ×2 (09:06→20:53)
[2020-05-05] MEDS: HYDROCORTISONE 1% CREAM 28.35 GM TUBE TP SCH ×2 (09:07→17:17)
[2020-05-05] MEDS: Z GUARD REMEDY 2 OZ OINT TP SCH (09:08)
[2020-05-05] MEDS: CLOTRIMAZOLE/BETAMETASONE DIPROPIONATE 15 GM TUBE TP SCH ×2 (09:13→17:18)
--- NOTE | 2020-05-05 11:30 | NUR ---
RN NOTES ON HEMODIALYSIS AT THIS TIME. TOLERATING WELL. WILL MONITOR ACCORDINGLY
--- NOTE | 2020-05-05 12:30 | NUR ---
HEMODIALYSIS DONE, 2L OUTPUT PATIENT TOLERATED WELL. WILL MONIOTR ACCORDINGLY.
--- NOTE | 2020-05-05 18:37 | NUR ---
RN CLOSING NOTES PATIENT IN STABLE CONDITION. ALL NEEDS ATTENDED AND PROVIDED. ALL DUE MEDS GIVEN ORDERED. TURNED AND REPOSITIONED PATIENT EVERY 2 HRS AND NEEDED. KEPT PATIENT SAFE AND COMFORTABLE. BED IN LOW/LOCKED POSITION. SIDERAILS UP, CALL LIGHT IN REACH. WILL ENDORSED ACCORDINGLY.
--- NOTE | 2020-05-05 21:07 | NUR ---
RT NOTE PT RECEIVED TRACHED ON MECHANICAL VENTILATION. CUFF CHECKED VIA STRAIGHT KNIFE CUTTER MACHINE. JAMSHIDU BAG @ HOB. SX DONE, TRACH SECURED AND PATENT. ALARMS ON AND AUDIBLE. VENT PLUGGED TO RED OUTLET. NO DISTRESS NOTED. CONT. PULSE OX CONNECTED. WILL CONTINUE TO MONITOR CLOSELY. Addendum: 05/05/20 at 2108 by JOSEPH FLORES RT Amended: Links added.
[2020-05-05] MEDS: INSULIN GLARGINE, 100 UNIT/ML CARTRIDGE SQ SCH (21:16)
[2020-05-06] VITALS: BP 160/67
[2020-05-06 00:05] VITALS: BP 139/76
[2020-05-06 00:16] VITALS: BP 160/67
[2020-05-06] MEDS: AMPICILLIN 1 GM in IV NS 0.9% 50 ML IV SCH ×2 (01:19→10:43)
[2020-05-06 08:00] VITALS: BP_SYST 107; BP_SYST 157; BP_DIAS 72
[2020-05-06] MEDS: BLOOD SUGAR DIAGNOSTIC 1 EACH STRIP IN SCH ×2 (08:00→12:39)
[2020-05-06] MEDS: LEVOTHYROXINE SODIUM 75 MCG TABLET GT SCH (08:11)
[2020-05-06] MEDS: GABAPENTIN 100 MG CAPSULE GT SCH (08:11)
[2020-05-06] MEDS: LORATADINE 10 MG TABLET GT SCH (08:11)
[2020-05-06] MEDS: LOSARTAN POTASSIUM 50 MG TABLET GT SCH (08:12)
[2020-05-06] MEDS: PANTOPRAZOLE 40 MG VIAL IV SCH (08:13)
[2020-05-06] MEDS: DOCUSATE SODIUM LIQ 100 MG/10 ML UDC GT SCH (08:13)
[2020-05-06] MEDS: ESCITALOPRAM OXALATE (10 MG) 10 MG TABLET GT SCH (08:17)
[2020-05-06] MEDS: HYDROCORTISONE SOD SUCCINATE 100 MG/2 ML VIAL IV SCH (08:33)
--- NOTE | 2020-05-06 09:14 | NUR ---
RN OPENING NOTES RECEIVED PATIENT IN BED RESTING. NOTED WITH TRACH AND ON [facility] VENTILATOR. PATIENT IS RESPONSIVE. NO SIGNS OF DISTRESS. NO SOB. RIGHT HAND DOUBLE LUMEN IV ACCESS INTACT AND PATENT. NOTED WITH RIGHT FEMORAL HD CATH WITH DRESSING C/D/I. PATIENT IS ON TELE AFIB @ HR 62.TUBE FEEDING, TOLERATING WELL, NO RESIDUAL NOTED. NOTED FLEXISEAL WITH BROWN LIQUID STOOL. BED IN LOW AND LOCKED POSITION, SIDERAILS UPX2, CALL LIGHT IN REACH. WILL CONTINUE TO MONITOR ACCORDINGLY.
--- NOTE | 2020-05-06 09:27 | NUR ---
RECEIVED CALL FROM [facility] FOR POSSIBLE DISCHARGE TODAY. GAVE FIO2 40% AND TEMP FOR THE PAST 3 DAYS.
[2020-05-06] MEDS: HYDROCORTISONE 1% CREAM 28.35 GM TUBE TP SCH ×2 (10:40→16:35)
[2020-05-06] MEDS: MUPIROCIN OINT 2% 22 GM TUBE SCH (10:40)
[2020-05-06] MEDS: CLOTRIMAZOLE/BETAMETASONE DIPROPIONATE 15 GM TUBE TP SCH ×2 (10:41→16:35)
[2020-05-06] MEDS: Z GUARD REMEDY 2 OZ OINT TP SCH (10:42)
[2020-05-06 12:00] VITALS: BP 114/59
--- NOTE | 2020-05-06 12:30 | NUR ---
UNABLE TO ADM INSULIN. ORDERED FROM PHARMACY
[2020-05-06] MEDS: NEPRO 1,000 ML BOTTLE GT PRN (14:53)
[2020-05-06 16:00] VITALS: BP 160/74
--- NOTE | 2020-05-06 17:45 | NUR ---
GAVE REPORT TO [facility] IAN CRAMER. INF SURVEY INSTRUMENT OPERATOR TIME IS 1800.
--- NOTE | 2020-05-06 18:19 | NUR ---
REPORT GIVEN TO ANAID FOR DISCHARGE. ASSISTED BY 3 LEAD ATG DEVELOPER. PATIENT IN STABLE CONDITION. NO SIGNS OF DISTRESS. R HAND #[address] GT. DISCHARGE PICTURES TAKEN.
[2020-05-07] MEDS ORDERED: HYDROCORTISONE SOD SUCCINATE 100 MG/2 ML VIAL IV SCH (09:00)
== END 2020-05-06 18:03 | disposition short-term general hospital (02) | DRG 314 ==
LOC: ER 14:05 → ICU 16:38 → TELE1 05-01 12:51
PROVIDERS: ADMIT Internal Medicine Nephrology; ATTEND Internal Medicine Nephrology
PROC: 5A1955Z Respiratory Ventilation, Greater than 96 Consecutive Hours (ICD-10-PCS; principal; 2020-04-26)
PROC: 02HV33Z Insertion of Infusion Device into Superior Vena Cava, Percutaneous Approach (ICD-10-PCS; 2020-04-26)
PROC: B548ZZA Ultrasonography of Superior Vena Cava, Guidance (ICD-10-PCS; 2020-04-26)
PROC: 5A1D70Z Performance of Urinary Filtration, Intermittent, Less than 6 Hours Per Day (ICD-10-PCS; 2020-04-27)
PROC: 0JHF3XZ Insertion of Tunneled Vascular Access Device into Left Upper Arm Subcutaneous Tissue and Fascia, Percutaneous Approach (ICD-10-PCS; 2020-04-29)
PROC: 05H633Z Insertion of Infusion Device into Left Subclavian Vein, Percutaneous Approach (ICD-10-PCS; 2020-04-29)
PROC: B547ZZA Ultrasonography of Left Subclavian Vein, Guidance (ICD-10-PCS; 2020-04-29)
PROC: 0DB68ZX Excision of Stomach, Via Natural or Artificial Opening Endoscopic, Diagnostic (ICD-10-PCS; 2020-05-01)
PROC: 06HY33Z Insertion of Infusion Device into Lower Vein, Percutaneous Approach (ICD-10-PCS; 2020-05-04)
DX: T80.211A Bloodstream infection due to central venous catheter, initial encounter (principal); N18.6 End stage renal disease; R65.21 Severe sepsis with septic shock; A41.81 Sepsis due to Enterococcus; J18.9 Pneumonia, unspecified organism; G93.40 Encephalopathy, unspecified; Z99.11 Dependence on respirator [ventilator] status; I13.2 Hypertensive heart and chronic kidney disease with heart failure and with stage 5 chronic kidney disease, or end stage renal disease; J96.10 Chronic respiratory failure, unspecified whether with hypoxia or hypercapnia; G93.1 Anoxic brain damage, not elsewhere classified; E27.40 Unspecified adrenocortical insufficiency; E87.4 Mixed disorder of acid-base balance; J44.0 Chronic obstructive pulmonary disease with (acute) lower respiratory infection; Z99.2 Dependence on renal dialysis; L30.4 Erythema intertrigo; E78.5 Hyperlipidemia, unspecified; E11.22 Type 2 diabetes mellitus with diabetic chronic kidney disease; E03.9 Hypothyroidism, unspecified; G47.419 Narcolepsy without cataplexy; I25.10 Atherosclerotic heart disease of native coronary artery without angina pectoris; I27.20 Pulmonary hypertension, unspecified; I48.0 Paroxysmal atrial fibrillation; I50.9 Heart failure, unspecified; D69.6 Thrombocytopenia, unspecified; K21.9 Gastro-esophageal reflux disease without esophagitis; Z79.4 Long term (current) use of insulin; Z79.51 Long term (current) use of inhaled steroids; Z79.899 Other long term (current) drug therapy; D63.8 Anemia in other chronic diseases classified elsewhere; R13.10 Dysphagia, unspecified; L98.9 Disorder of the skin and subcutaneous tissue, unspecified; K29.70 Gastritis, unspecified, without bleeding; Z22.322 Carrier or suspected carrier of Methicillin resistant Staphylococcus aureus; D64.9 Anemia, unspecified; E87.6 Hypokalemia; R23.8 Other skin changes; K25.9 Gastric ulcer, unspecified as acute or chronic, without hemorrhage or perforation; L90.5 Scar conditions and fibrosis of skin
CPT/HCPCS: 31720; 36415; 36569; 36600; 71045-TC; 80048-TC; 80053-TC; 80076-TC; 80202-TC; 82533; 82728-TC; 82803-TC; 82962-TC; 83540-TC; 83605-TC; 83615-TC; 83735-TC; 84100-TC; 84439-TC; 84443-TC; 84484-TC; 85025-TC; 85730-TC; 86140-TC; 86706; 87040-TC; 87070-TC; 87081-TC; 87186-TC; 87340; 88305-TC; 88312-TC; 88313-TC; 90935-TC; 93307-TC; 94002-TC; 94003-TC; 94760-TC; 94762-TC; 94799-TC; 99082-TC; A4216; A6253; A6403; C1750; C1769; C9113; G0378; J0290; J0360; J0885; J1720; J1815; J2185; J2543; J2704; J2916; J3370; J3480; J3490; J7030; J7042; J7050; J7060; J7070; P9047; U0003-CS

== ENCOUNTER 2020-09-14 19:19 | Inpatient (IN) | payer MEDICARE, OTHER ==
[~2020-09-14] VITALS: Ht 165.1 cm; Wt 69.9 kg
[~2020-09-14 19:19] MED LIST changes: -*INS NOVA SQ; +DOCU-141 GT; +HYDR-500 GT; +NPH.100V2 SQ; +NUT.237L67 GT
--- NOTE | 2020-09-14 19:44 | NUR ---
PT PLACED ON [facility] VENT WITH NOTED SETTING GIVEN BY TRANSPORT. PT TOLERATING SETTING WELL. NO SOB OR DISTRESS NOTED. ALARM SET AND AUDIBLE. AMBU BAG AT [facility]. VENT TO RED OUTLET. Addendum: 09/14/20 at 1946 by ELIZABETH MILLER RT Amended: Links added.
[2020-09-14] MEDS ORDERED: IV NS 0.9% 500 ML BAG IV ONE ×2 (20:00→23:30)
--- NOTE | 2020-09-14 20:08 | NUR ---
RODRÍGUEZ FROM DIALYSIS CENTER. TO ER BED 5. PT IS SLEEPING, EASILY ARROUSABLE. NOT IN RESP DISTRESS. PT IS VENT AND TRACH DEPENDENT. BED BOUND. BROUGHT IN FOR HYPOTENSION. PT WAS NOTED TO HAVE SBP IN THE 80S. PT WAS REPORTED THAT SHE COMPLETED HER DIALYSIS SESSION. PT IS NOTED W/ TEMP OF 100.2. PT HAS HER HD ACCESS ON L UPPER CHEST. NOTED N IV LINE ON HER R AC WHICH APPEARS TO BE INPLACE FOR QUITE SOMETIMES. ALSO NOTED A YELLOW DISCHARGE FROM THE IV SITE. WAS AT THE BEDSIDE FOR EVAL. ORDERS RECEIVED, NOTED AND CARRIED OUT. IV LINE ESTABLISHED ON R AC 22G. BLOOD DRAWN AND GIVEN TO TIRE INSTALLER.
--- NOTE | 2020-09-14 20:10 | NUR ---
VENT SETTING: AC 18 VT 500 O2 45% +5 PEEP.
[2020-09-14 20:13] LABS: BASOPHILS % (AUTO) 0.2 % (0.0-2.0); EOSINOPHILS % (AUTO) 5.8 % (0.0-6.0); HEMATOCRIT 31 % (33-45); HEMOGLOBIN 9.3 g/dL (11.5-14.8); LYMPHOCYTES # (AUTO) 1.7 /CMM (0.8-4.8); LYMPHOCYTES % (AUTO) 7.6 % (20.0-44.0); MEAN CORPUSCULAR HGB CONC 30 g/dl (31.0-36.0); MEAN CORPUSCULAR VOLUME 107 fL (82-100); MONOCYTES # (AUTO) 1.1 /CMM (0.1-1.30); MONOCYTES % (AUTO) 5.1 % (2.0-12.0); NEUTROPHILS # (AUTO) 17.6 /CMM (1.8-8.9); NEUTROPHILS % (AUTO) 81.3 % (43.0-81.0); PLATELET COUNT (AUTO) 163 /CMM (150-450); RED BLOOD CELL COUNT(AUTO) 2.94 MIL/uL (4.0-5.2); WHITE BLOOD COUNT (AUTO) 21.7 K/uL (4.3-11.0)
[2020-09-14 20:16] LABS: CALCIUM, SERUM 9.5 mg/dL (8.5-10.1); CARBON DIOXIDE 28 mmol/L (21-32); CHLORIDE 99 mmol/L (98-107); CREATININE 3.2 mg/dL (0.6-1.3); GLUCOSE 152 mg/dL (74-106); POTASSIUM 2.9 mmol/L (3.5-5.1); SODIUM SERUM 138 mmol/L (136-145); UREA NITROGEN, BLOOD 26 mg/dL (7-18)
[2020-09-14 20:21] LABS: ALANINE AMINOTRANSFERASE 9 U/L (12-78); ALBUMIN 2.5 g/dL (3.4-5.0); ALKALINE PHOSPHATASE 295 U/L (46-116); ASPARTATE AMINOTRANSFERASE 13 U/L (15-37); BILIRUBIN,DIRECT 0.2 mg/dL (0.0-0.2); BILIRUBIN,TOTAL 0.5 mg/dL (0.2-1.0); TOTAL PROTEIN, SERUM 7.2 g/dL (6.4-8.2)
--- NOTE | 2020-09-14 20:39 | NUR ---
DERRICK FONTANA TALKING TO DR. KUN SOSA REGARDING PT.
--- NOTE | 2020-09-14 20:45 | NUR ---
IN AND OUT CATH ATTEMPTED TO COLLECT URINE BUT DOES NOT HAVE ANY URINE OUTPUT. MADE AWARE.
[2020-09-14] MEDS ORDERED: VANCOMYCIN 1 GM in IV D5W 250 ML IV ONE (21:00)
[2020-09-14] MEDS ORDERED: PIPERACILLIN /TAZOBACTAM 3.375 G in IV D5W 50 ML IV ONE (21:00)
--- NOTE | 2020-09-14 21:00 | NUR ---
COMPLETE FLUID RESUSCITATION NOT DONE BECAUSE PT IS ON DIALYSIS. PT WAS ONLY GIVEN 500ML NS BOLUS
[2020-09-14] MEDS ORDERED: PIPERACILLIN /TAZOBACTAM 3.375 G VIAL IV ONE (21:01)
[2020-09-14] MEDS ORDERED: VANCOMYCIN 1 GM VIAL ONE (21:01)
--- NOTE | 2020-09-14 21:06 | NUR ---
ER TALKING TO JAIME HOROWITZ REGARDING PT ADMISSION.
[2020-09-14 21:19] LABS: BAND % (MANUAL) 3 % (0.0-5.0); EOSINOPHILS % (MANUAL) 5 % (0-4); LYMPHOCYTES % (MANUAL) 4 % (16-48); MONOCYTES % (MANUAL) 4 % (0-11.0); NEUTROPHILS % (MANUAL) 84 (42-76)
[2020-09-14] MEDS ORDERED: MAG HYDROX/AL HYDROX/SIMETH 30 ML UDC PO PRN (22:00)
[2020-09-14] MEDS ORDERED: MORPHINE SULFATE INJ 2 MG/ML DISP.SYRIN IV PRN (22:00)
[2020-09-14] MEDS ORDERED: DEXTROSE 50%-WATER 50 ML DISP.SYRIN IV PRN (22:00)
[2020-09-14] MEDS ORDERED: hydrALAZINE HCL 25 MG TABLET PO PRN (22:00)
[2020-09-14] MEDS ORDERED: NEPRO VAN 237 ML CAN GT SCH (22:00)
[2020-09-14] MEDS ORDERED: *INSULIN REGULAR(HUMULIN R)HUM 100 UNIT/ML VIAL SQ PRN (22:00)
[2020-09-14] MEDS ORDERED: MAGNESIUM HYDROXIDE 30 ML UDC PO PRN (22:00)
[2020-09-14] MEDS ORDERED: BISACODYL SUPP (10 MG) 10 MG/SUPP.RECT SUPP.RECT RC PRN (22:00)
[2020-09-14] MEDS ORDERED: HYDROCODONE/APAP 5/325MG TABLET PO PRN (22:00)
[2020-09-14] MEDS ORDERED: ONDANSETRON HCL/PF 4 MG/2 ML VIAL IVP PRN (22:00)
--- NOTE | 2020-09-14 22:23 | NUR ---
COVID NEGATIVE PER LAB
--- NOTE | 2020-09-14 22:49 | NUR ---
CALLED RN SUP FOR AMITA BED.
--- NOTE | 2020-09-14 22:53 | NUR ---
PT GOIMG TO 116-1 PER DRY FOLDER CLOTH.
--- NOTE | 2020-09-14 23:20 | NUR ---
REPORT GIVEN TO CHRISTINA DALLAS FOR JOHN
--- NOTE | 2020-09-14 23:46 | NUR ---
AMITA RN NOTE RECEIVED PT IN ROOM 116-1. WITH RT AT BED SIDE WITH ER STAFF. NURSING PHARMACY TECHNOLOGIST CALLED BACK AND INFORMED ME TO TRANSFER BACK PT TO ICU rOOM # 258. TRANSFERRED OUT PT AT 258 TO ICU PER ICU PROTOCOL WITH COVID ISOLATION PRECAUTIONS.
--- NOTE | 2020-09-14 23:56 | NUR ---
[place], rt and rn at bedside w/ acls protocol. nad noted during transport.
[2020-09-15] VITALS (66 sets, daily range): BP systolic 75–171; BP diastolic 25–69
[2020-09-15] MEDS ORDERED: PIPERACILLIN /TAZOBACTAM 3.375 G in IV D5W 50 ML IV SCH ×2
--- NOTE | 2020-09-15 00:30 | NUR ---
RN NOTE PT RECEIVED VIA BED. PT IS NON VERBAL, PT IS ON MECHANICAL VENTILATION VIA TRACH. PT HAS UNLABORED BREATHING. SAFETY MEASURE IN PLACE BED AT LOWEST POSITION LOCKED, SIDE RAILS UPX2, CALL LIGHT IN REACH.
--- NOTE | 2020-09-15 01:00 | NUR ---
RN NOTE INSULIN NON ADMIN PT IS CURRENTLY NPO.
[2020-09-15] MEDS ORDERED: Medication Not On Formulary EA (Ipratropium/Albuterol Sulfate (Duoneb 2.5-0.5 Mg/3 Ml So IH SCH (01:30)
[2020-09-15] MEDS: BLOOD SUGAR DIAGNOSTIC 1 EACH STRIP VI SCH ×5 (01:52→22:07)
[2020-09-15] MEDS ORDERED: IV NS 0.9% 250 ML IV ONE (03:00)
[2020-09-15] MEDS ORDERED: ZOSYN IVPB 3.375 G in IV D5W 50ml IV ONE (03:00)
[2020-09-15] MEDS ORDERED: PIPERACILLIN /TAZOBACTAM 3.375 G VIAL IV ONE (03:02)
[2020-09-15] MEDS: NEPRO 1,000 ML BOTTLE GT PRN ×2 (03:14→21:49)
[2020-09-15 04:33] LABS: BASOPHILS % (AUTO) 0.2 % (0.0-2.0); EOSINOPHILS % (AUTO) 6.4 % (0.0-6.0); HEMATOCRIT 28 % (33-45); HEMOGLOBIN 8.7 g/dL (11.5-14.8); LYMPHOCYTES # (AUTO) 1.7 /CMM (0.8-4.8); LYMPHOCYTES % (AUTO) 10.5 % (20.0-44.0); MEAN CORPUSCULAR HGB CONC 31 g/dl (31.0-36.0); MEAN CORPUSCULAR VOLUME 104 fL (82-100); MONOCYTES # (AUTO) 0.8 /CMM (0.1-1.30); MONOCYTES % (AUTO) 5.3 % (2.0-12.0); NEUTROPHILS # (AUTO) 12.2 /CMM (1.8-8.9); NEUTROPHILS % (AUTO) 77.6 % (43.0-81.0); PLATELET COUNT (AUTO) 148 /CMM (150-450); RED BLOOD CELL COUNT(AUTO) 2.68 MIL/uL (4.0-5.2); WHITE BLOOD COUNT (AUTO) 15.8 K/uL (4.3-11.0)
[2020-09-15 04:43] LABS: ALANINE AMINOTRANSFERASE 8 U/L (12-78); ALBUMIN 2.3 g/dL (3.4-5.0); ALKALINE PHOSPHATASE 256 U/L (46-116); ASPARTATE AMINOTRANSFERASE 11 U/L (15-37); BILIRUBIN,TOTAL 0.5 mg/dL (0.2-1.0); CALCIUM, SERUM 8.8 mg/dL (8.5-10.1); CARBON DIOXIDE 28 mmol/L (21-32); CHLORIDE 100 mmol/L (98-107); CREATININE 3.6 mg/dL (0.6-1.3); GLUCOSE 177 mg/dL (74-106); MAGNESIUM 1.9 mg/dL (1.8-2.4); PHOSPHORUS 2.4 mg/dL (2.5-4.9); POTASSIUM 2.9 mmol/L (3.5-5.1); SODIUM SERUM 139 mmol/L (136-145); TOTAL PROTEIN, SERUM 6.6 g/dL (6.4-8.2); UREA NITROGEN, BLOOD 30 mg/dL (7-18)
[2020-09-15 05:12] LABS: CHOLESTEROL 89 mg/dL (<200); HDL CHOLESTEROL 29 mg/dL (40-60); LDL 37 mg/dL (0-99); THYROID STIMULATING HORMONE 14.512 uIU/mL (0.358-3.74); TRIGLYCERIDES 219 mg/dL (30-150)
--- NOTE | 2020-09-15 07:10 | NUR ---
RN NOTE PT REMAINED STABLE DURING MY SHIFT.REPORT GIVEN TO INCOMING SHIFT FOR JOHN.
--- NOTE | 2020-09-15 07:15 | NUR ---
RN NOTES RECEIVED PT ON BED , TRACH /VENT DEPENDENT, TOLEIANG CURRENT VENT SETTING WELL, TRACH CARE DONE, ON TELE SR HR IN 60'S , YIP INTACT, NEPRO AT 65CC/ HR RUNNING , R ARM IV SITE G 22 CLEAN,DRY AND INTACT, LOW BP NOTED, JAVIER MILITARY COMMUNICATIONS SPECIALIST NOTIFED , ORDER RECEIVED FOR LEVO GTT, SR UP x3, CALL LIGHT WNL, BED LOCKED AND IN LOWEST POSITION, WILL CONTINUE TO MONITOR .
[2020-09-15] MEDS: IPRATROPIUM NEB FS 0.5 MG/2.5 ML AMPUL.NEB IH SCH ×3 (07:35→19:30)
[2020-09-15] MEDS: ALBUTEROL FS 2.5 MG/0.5 ML VIAL.NEB NEB SCH ×3 (07:35→19:30)
--- NOTE | 2020-09-15 07:54 | NUR ---
WOUND CARE CONSULT: REVIEWED CHART,NURSING DOCUMENTATION AND PHOTOS WHICH INDICATE MULTIPLE SKIN ISSUES PRESENT ON ADMISSION INCLUDING WOUNDS TO SACRUM, LEFT ARM, LOWER LEG, WELL REDNESS AROUND G TUBE SITE, TO AXILLAE, PERINEUM, SKIN FOLDS, INNER THIGHS AND BUTTOCKS. RECOMMEND SURGICAL AND DPM CONSULTS. DR HARPER AND DR VERA NOTIFIED OF CONSULT. REQUESTS. DISCUSSED SKIN PROTECTION WITH NURSING STAFF. PT IS ON [facility] AIRSS BED. MD IN AGREEMENT WITH PLAN OF CARE.
[2020-09-15] MEDS: POTASSIUM CL. PREMIX PERIPHER. 50 ML IV SCH ×4 (07:58→12:11)
[2020-09-15] MEDS: INSULIN REGULAR, HUMAN 100 UNIT/ML 3 ML VIAL SQ PRN ×4 (08:45→22:17)
[2020-09-15] MEDS: LORATADINE 10 MG TABLET GT SCH (08:47)
[2020-09-15] MEDS: FAMOTIDINE (20 MG) 20 MG TABLET GT SCH (08:47)
[2020-09-15] MEDS: SEVELAMER CARBONATE 800 MG POWD.PACK GT SCH ×3 (08:47→17:41)
[2020-09-15] MEDS: ACIDOPHILUS/BULGARICUS 1 EACH TAB.CHEW GT SCH ×2 (08:47→16:46)
[2020-09-15] MEDS: LEVOTHYROXINE SODIUM 25 MCG TABLET GT SCH (08:48)
[2020-09-15] MEDS: APIXABAN 2.5 MG TABLET GT SCH ×2 (08:48→16:45)
[2020-09-15] MEDS: GABAPENTIN 100 MG CAPSULE GT SCH (08:49)
[2020-09-15] MEDS: PROSOURCE / PROSTAT (PYXIS) 30 ML UDC GT SCH (08:49)
[2020-09-15] MEDS: ESCITALOPRAM OXALATE (10 MG) 10 MG TABLET GT SCH (08:49)
[2020-09-15] MEDS: Z GUARD REMEDY 2 OZ OINT TP PRN (08:52)
[2020-09-15] MEDS: POLYVINYL ALCOHOL 15 ML BOTTLE OP SCH ×2 (08:52→16:46)
[2020-09-15] MEDS ORDERED: DOCUSATE SODIUM 100 MG CAPSULE PO SCH (09:00)
[2020-09-15] MEDS: LOSARTAN POTASSIUM 50 MG TABLET GT SCH (09:00)
[2020-09-15] MEDS: NOREPINEPHRINE 8 MG in IV NS 0.9% 242 ML IV PRN (09:29)
--- NOTE | 2020-09-15 09:37 | NUR ---
RT NOTE DUE TO COVID PROTOCOLS NO INHALATION TX GIVEN
--- NOTE | 2020-09-15 10:00 | NUR ---
RN NOTES PT PLACE ON [facility] MATTRESS FOR SKIN PROTECTION .
[2020-09-15] MEDS ORDERED: NEUTRA PHOS 1 POWD.PACKET GT ONE (11:00)
[2020-09-15] MEDS: PIPERACILLIN /TAZOBACTAM 2.25 G in IV D5W 50 ML IV SCH ×2 (11:40→18:06)
--- NOTE | 2020-09-15 13:00 | NUR ---
RN NOTES PICC LINE INSERTION TELEPHONE CONSENT RECEIVED FROM PT DAUGHTER.
--- NOTE | 2020-09-15 14:00 | NUR ---
RN NOTES R UPPER ARM PICC LINE INSERTED BY PICC LINE NURSE .
[2020-09-15] MEDS: CLOTRIMAZOLE/BETAMETASONE DIPROPIONATE 15 GM TUBE TP SCH ×2 (15:54→16:46)
--- NOTE | 2020-09-15 17:00 | NUR ---
RN NOTES ELIQUIS GIVEN PER DR GUSMAN ORDER .
--- NOTE | 2020-09-15 18:00 | NUR ---
RN NOTES TRACH CARE DONE , PT TOLERATING CURRENT VENT SETTING WELL, LEVO GTT RUNNING AT .04MCG/KG/MIN AT THIS TIME, ON TELE SR , TF AT 65CC/HR RUNNING VIA GT , NO RESIDUAL NOTED , R UPPER ARM PICC LINE SITE CLEAN, DRY AND INTACT, SR UP X3, CALL LIGHT WITHIN EASY REACH, BED LOCKED AND IN LOWEST POSITION, WILL ENDOSE TO ETCHER AIRCRAFT NURSE FOR CONTINUITY OF CARE .
--- NOTE | 2020-09-15 19:10 | NUR ---
RN NOTE RECEIVED PT REAGAN BED IN SEMI FOWLERS POSITION, TRACH /VENT DEPENDENT, TOLERATING CURRENT VENT SETTINGS. ON TELE MONIOR SR HR, YIP CATH INTACT, NEPRO RINNING AT 65CC/ HR , LASHAE PICC PATENT INTACT AND FLUSHING WELL. SIDERAILS UP UP x3, CALL LIGHT WITHIN REACH, BED LOCKED AND IN LOWEST POSITION, WILL CONTINUE TO MONITOR PT.
--- NOTE | 2020-09-15 21:40 | NUR ---
RN NOTE RECEIVED CALL FROM LAB COVID PCR IS NEGATIVE.
[2020-09-15] MEDS: INSULIN GLARGINE, 100 UNIT/ML CARTRIDGE SQ SCH (22:18)
[2020-09-16] VITALS (90 sets, daily range): BP systolic 80–161; BP diastolic 23–118
[2020-09-16] MEDS: ALBUTEROL FS 2.5 MG/0.5 ML VIAL.NEB NEB SCH ×4 (01:52→20:32)
[2020-09-16] MEDS: IPRATROPIUM NEB FS 0.5 MG/2.5 ML AMPUL.NEB IH SCH ×4 (01:52→20:31)
[2020-09-16] MEDS: PIPERACILLIN /TAZOBACTAM 2.25 G in IV D5W 50 ML IV SCH ×3 (03:02→17:57)
[2020-09-16 04:32] LABS: BASOPHILS # (AUTO) 0.1 /CMM (0.0-0.2); BASOPHILS % (AUTO) 0.4 % (0.0-2.0); EOSINOPHILS % (AUTO) 8.5 % (0.0-6.0); HEMATOCRIT 27 % (33-45); HEMOGLOBIN 8.7 g/dL (11.5-14.8); LYMPHOCYTES # (AUTO) 1.7 /CMM (0.8-4.8); LYMPHOCYTES % (AUTO) 10.5 % (20.0-44.0); MEAN CORPUSCULAR HGB CONC 32 g/dl (31.0-36.0); MEAN CORPUSCULAR VOLUME 102 fL (82-100); MONOCYTES # (AUTO) 1.3 /CMM (0.1-1.30); MONOCYTES % (AUTO) 8.1 % (2.0-12.0); NEUTROPHILS # (AUTO) 11.8 /CMM (1.8-8.9); NEUTROPHILS % (AUTO) 72.5 % (43.0-81.0); PLATELET COUNT (AUTO) 153 /CMM (150-450); RED BLOOD CELL COUNT(AUTO) 2.66 MIL/uL (4.0-5.2); WHITE BLOOD COUNT (AUTO) 16.3 K/uL (4.3-11.0)
[2020-09-16 04:39] LABS: CARBON DIOXIDE 25 mmol/L (21-32); CHLORIDE 100 mmol/L (98-107); CREATININE 4.6 mg/dL (0.6-1.3); GLUCOSE 242 mg/dL (74-106); PHOSPHORUS 2.7 mg/dL (2.5-4.9); POTASSIUM 3.2 mmol/L (3.5-5.1); SODIUM SERUM 138 mmol/L (136-145); UREA NITROGEN, BLOOD 43 mg/dL (7-18)
--- NOTE | 2020-09-16 07:18 | NUR ---
RN NOTE PT IN BED IN SEMI FOWLERS POSITION, TRACH /VENT DEPENDENT, TOLERATING CURRENT VENT SETTINGS. ON TELE MONIOR SR. YIP CATH INTACT, NEPRO RUNNING AT 65CC/ HR , LASHAE PICC PATENT INTACT AND FLUSHING WELL. LEVO AT 0.04 MCG/KG/MIN INFUSING. BILATERAL SOFT WRIST RESTRAINTS IN PLACE SKIN INACT. SIDE RAILS UP UP x3, BED LOCKED AND IN LOWEST POSITION. ENDORSED TO AM RN TO CALL LAB FOR BLOOD CX WHEN PT RECIEVING DIALYSIS TODAY.
--- NOTE | 2020-09-16 07:46 | NUR ---
RT Pt received trached on mechanical ventilation with noted settings. Vent alarms are set and audible with BVM and spare trach by bedside. Vent is plugged into red outlet. No SOB or respiratory distress noted. Addendum: 09/16/20 at 1004 by SMILEY JEAN RT Amended: Links added.
[2020-09-16] MEDS: Z GUARD REMEDY 2 OZ OINT TP PRN ×3 (08:00→18:00)
[2020-09-16] MEDS ORDERED: DEXTROSE 50%-WATER 50 ML DISP.SYRIN IV PRN (08:30)
[2020-09-16] MEDS: LOSARTAN POTASSIUM 50 MG TABLET GT SCH (09:00)
[2020-09-16] MEDS: FAMOTIDINE (20 MG) 20 MG TABLET GT SCH (09:40)
[2020-09-16] MEDS: ACIDOPHILUS/BULGARICUS 1 EACH TAB.CHEW GT SCH ×2 (09:40→17:55)
[2020-09-16] MEDS: LEVOTHYROXINE SODIUM 25 MCG TABLET GT SCH (09:40)
[2020-09-16] MEDS: ESCITALOPRAM OXALATE (10 MG) 10 MG TABLET GT SCH (09:40)
[2020-09-16] MEDS: LORATADINE 10 MG TABLET GT SCH (09:43)
[2020-09-16] MEDS: GABAPENTIN 100 MG CAPSULE GT SCH (09:43)
[2020-09-16] MEDS: SEVELAMER CARBONATE 800 MG POWD.PACK GT SCH ×3 (09:43→17:55)
[2020-09-16] MEDS: DOCUSATE SODIUM LIQ 100 MG/10 ML UDC GT SCH (09:43)
[2020-09-16] MEDS: APIXABAN 2.5 MG TABLET GT SCH ×2 (09:43→17:56)
[2020-09-16] MEDS: HYDROCORTISONE SOD SUCCINATE 100 MG/2 ML VIAL IV SCH ×3 (09:44→20:49)
[2020-09-16] MEDS: PROSOURCE / PROSTAT (PYXIS) 30 ML UDC GT SCH (09:45)
[2020-09-16] MEDS: CLOTRIMAZOLE/BETAMETASONE DIPROPIONATE 15 GM TUBE TP SCH ×2 (09:47→16:02)
[2020-09-16] MEDS: POLYVINYL ALCOHOL 15 ML BOTTLE OP SCH ×2 (09:47→17:55)
[2020-09-16] MEDS: NOREPINEPHRINE 8 MG in IV NS 0.9% 242 ML IV PRN (10:13)
[2020-09-16] MEDS: ACETYLCYSTEINE 10% SOLN 400 MG/4 ML VIAL NEB SCH ×2 (10:30→14:30)
[2020-09-16] MEDS ORDERED: EPOETIN ALFA (10,000 UNIT) 10,000 UNIT/ML VIAL IV ONE (13:00)
[2020-09-16] MEDS: BLOOD SUGAR DIAGNOSTIC 1 EACH STRIP IN SCH ×3 (13:35→23:57)
[2020-09-16] MEDS: INSULIN REGULAR, HUMAN 100 UNIT/ML 3 ML VIAL SQ PRN ×3 (13:48→23:55)
[2020-09-16] MEDS: NEPRO 1,000 ML BOTTLE GT PRN (14:41)
--- NOTE | 2020-09-16 19:30 | NUR ---
RN NOTES RECEIVED PATIENT IN BED , TRACH/VENT DEPENDENT SETTING TOLERATING WELL ORDERED. TELE MONITOR SHOWS SR HR IN 70'S. GT INTACT PLACEMENT CHECKED BY AUSCULTATION NO RESIDUAL NOTED. NEPRO RUNNING AT 65CC/HR TOLERATING WELL. LASHAE PICC LINE AND LT HAND IV'S INTACT PATENT FLUSHES WELL LT UPPER CHEST HD CATH INTACT INTACT NO S/S OF BLEEDING NO SWELLING NOTED. F/C INTACT NOTED WITH MINIMAL URINE OUTPUT AT THIS TIME. SAFETY MEASURES IN PLACE, SIDE RAILS UP X2, CALL LIGHT WITHIN REACH. WILL CONT TO MONITOR FOR JOHN.
--- NOTE | 2020-09-16 19:30 | NUR ---
END OF SHIFT NOTE: PT HAD DIALYSIS TODAY, 500ML OFF. 3BM'S THIS SHIFT. WOUND CARE ORDERS FOLLOWED. PT ANURIC. BLOOD CULTURES DRAWN DURING DIALYSIS AND SENT TO LAB PER MD ORDERS. PT CHECKED ON HOURLY AND PRN BY NURSING STAFF.
[2020-09-16] MEDS: hydrOXYzine HCL SYRUP 10 MG/5 ML UDC GT PRN (21:47)
--- NOTE | 2020-09-16 21:47 | NUR ---
PRN ATARAX GIVEN FOR ITCHING. WILL CONT TO MONITOR.
[2020-09-16] MEDS: INSULIN GLARGINE, 100 UNIT/ML CARTRIDGE SQ SCH (21:48)
--- NOTE | 2020-09-16 22:00 | NUR ---
REPOSITION FOR COMFORT, KEPT CLEAN AND COMFORTABLE. WILL CONT TO MONITOR.
[2020-09-17] VITALS (26 sets, daily range): BP systolic 98–161; BP diastolic 26–115
[2020-09-17] MEDS: ACETYLCYSTEINE 10% SOLN 400 MG/4 ML VIAL NEB SCH ×3 (01:32→13:42)
[2020-09-17] MEDS: IPRATROPIUM NEB FS 0.5 MG/2.5 ML AMPUL.NEB IH SCH ×4 (01:33→19:51)
[2020-09-17] MEDS: ALBUTEROL FS 2.5 MG/0.5 ML VIAL.NEB NEB SCH ×4 (01:33→19:51)
[2020-09-17] MEDS: PIPERACILLIN /TAZOBACTAM 2.25 G in IV D5W 50 ML IV SCH ×3 (03:00→18:20)
[2020-09-17 04:42] LABS: CALCIUM, SERUM 9.7 mg/dL (8.5-10.1); CARBON DIOXIDE 25 mmol/L (21-32); CHLORIDE 96 mmol/L (98-107); CREATININE 3.4 mg/dL (0.6-1.3); POTASSIUM 3.7 mmol/L (3.5-5.1); SODIUM SERUM 134 mmol/L (136-145); UREA NITROGEN, BLOOD 36 mg/dL (7-18)
[2020-09-17 05:00] LABS: GLUCOSE 383 mg/dL (74-106)
--- NOTE | 2020-09-17 05:00 | NUR ---
RECEIVED CALL FROM LAB, SPOKE TO MAN, REGARDING CRITICAL LAB RESULTS BLOOD GLUCOSE-383 LAB RELAYED TO BIANCA SANDOVAL. PATIENT IS ON Q6H FBS WILL CONT TO MONITOR.
[2020-09-17] MEDS: HYDROCORTISONE SOD SUCCINATE 100 MG/2 ML VIAL IV SCH ×3 (05:07→21:09)
[2020-09-17] MEDS: NEPRO 1,000 ML BOTTLE GT PRN ×2 (05:39→23:30)
[2020-09-17] MEDS: BLOOD SUGAR DIAGNOSTIC 1 EACH STRIP IN SCH ×3 (05:48→18:20)
[2020-09-17] MEDS: INSULIN REGULAR, HUMAN 100 UNIT/ML 3 ML VIAL SQ PRN ×4 (05:49→23:33)
--- NOTE | 2020-09-17 06:00 | NUR ---
AT [address] SANDOVAL AWARE NNO. WILL CONT TO MONITOR.
--- NOTE | 2020-09-17 07:28 | NUR ---
RN NOTES NO CHANGES NOTED, DURING SHIFT. V/S STABLE, LEVO TURNED OFF AT 2200. NO S/S OF ACUTE DISTRESS NOTED. GTF TOLERATING WELL, NO RESIDUAL NOTED. IV'S INTACT PATENT FLUSHED WELL. BED BATH GIVEN TOLERATED WELL PATIENT HAD BM X2 WITH MINIMAL URINE OUTPUT. TURN REPOSITION TOLERATED. KEPT CLEAN DRY AND COMFORTABLE. ALL SAFETY MEASURES IN PLACE, CALL LIGHT WITHIN REACH. ENDORSE TO AM NURSE FOR JOHN.
[2020-09-17] MEDS: LOSARTAN POTASSIUM 50 MG TABLET GT SCH (09:00)
[2020-09-17] MEDS: DOCUSATE SODIUM LIQ 100 MG/10 ML UDC GT SCH (09:00)
[2020-09-17] MEDS: ESCITALOPRAM OXALATE (10 MG) 10 MG TABLET GT SCH (09:42)
[2020-09-17] MEDS: LORATADINE 10 MG TABLET GT SCH (09:43)
[2020-09-17] MEDS: LEVOTHYROXINE SODIUM 25 MCG TABLET GT SCH (09:43)
[2020-09-17] MEDS: GABAPENTIN 100 MG CAPSULE GT SCH (09:44)
[2020-09-17] MEDS: PROSOURCE / PROSTAT (PYXIS) 30 ML UDC GT SCH (09:44)
[2020-09-17] MEDS: FAMOTIDINE (20 MG) 20 MG TABLET GT SCH (09:44)
[2020-09-17] MEDS: ACIDOPHILUS/BULGARICUS 1 EACH TAB.CHEW GT SCH ×2 (09:44→18:22)
[2020-09-17] MEDS: SEVELAMER CARBONATE 800 MG POWD.PACK GT SCH ×3 (09:45→18:19)
[2020-09-17] MEDS: APIXABAN 2.5 MG TABLET GT SCH ×2 (09:46→18:19)
[2020-09-17] MEDS: POLYVINYL ALCOHOL 15 ML BOTTLE OP SCH ×2 (09:51→18:20)
[2020-09-17] MEDS: CLOTRIMAZOLE/BETAMETASONE DIPROPIONATE 15 GM TUBE TP SCH ×2 (09:52→18:19)
[2020-09-17] MEDS: MUPIROCIN OINT 2% 22 GM TUBE SCH ×2 (12:04→21:09)
--- NOTE | 2020-09-17 19:14 | NUR ---
END OF SHIFT NOTE: PT HAD A FAIRLY UNEVENTFUL SHIFT. LANTUS WAS INCREASED TODAY, STARTING WITH HS DOSE TONIGHT FOR ELEVATED BLOOD SUGARS, STEROID DOSE DECREASED TODAY ALSO. YIP CATHETER REMOVED TODAY PER MD ORDER FROM DR. KUN SOSA. 2 BMS THIS AM. STOOL SOFTENER HELD THIS AM. MOISTURE RELATED REDDENED SKIN BREAKDOWN NOTED ON ENTIRE BRANT AREA, SKIN FOLDS AND LEFT AXILLA AREA, Z-GUARD AND LOTRIMIN CREAM USED PER MD ORDERS. LEVOPHED HAS BEEN OFF SINCE 2200 LAST NIGHT. PT CHECKED ON HOURLY AND PRN BY NURSING STAFF.
--- NOTE | 2020-09-17 20:02 | NUR ---
RT pt received on current vent settings. trached with shiley 7 cuffed xlt. vent plugged in to red outlet. alarms on and audible. ambu bag at [facility]. small yellow thick secretions suctioned from trach. no sob/no resp distress. pt resting comfortably at this time. cpt will be done. will continue to monitor.
[2020-09-17] MEDS: INSULIN GLARGINE, 100 UNIT/ML CARTRIDGE SQ SCH (21:20)
[2020-09-18] VITALS (9 sets, daily range): BP systolic 95–155; BP diastolic 43–92
[2020-09-18] MEDS: BLOOD SUGAR DIAGNOSTIC 1 EACH STRIP IN SCH ×5 (00:07→23:00)
[2020-09-18] MEDS: ACETYLCYSTEINE 10% SOLN 400 MG/4 ML VIAL NEB SCH ×3 (00:15→13:03)
[2020-09-18] MEDS: ALBUTEROL FS 2.5 MG/0.5 ML VIAL.NEB NEB SCH ×4 (01:28→20:17)
[2020-09-18] MEDS: IPRATROPIUM NEB FS 0.5 MG/2.5 ML AMPUL.NEB IH SCH ×4 (01:28→20:17)
[2020-09-18] MEDS: PIPERACILLIN /TAZOBACTAM 2.25 G in IV D5W 50 ML IV SCH ×3 (02:25→19:10)
--- NOTE | 2020-09-18 04:10 | NUR ---
RN NOTES RECEIVED REPORT FROM DIE TECHNICIAN DALE REGARDING ICU PATIENT ROOM 260-1 TO BE TRANSFERRED TO [facility] ROOM 108. ALL PERTINENT INFO OBTAINED FOR CONTINUITY OF CARE. NAILER MACHINE MADE AWARE. AWAITING FOR PT TO BE SENT AND TRANSFERRED FROM ICU GOING TO [facility]. WILL ADDRESS ALL NEEDS ONCE PATIENT ARRIVES IN THE UNIT.
[2020-09-18 04:46] LABS: BASOPHILS % (AUTO) 0.2 % (0.0-2.0); EOSINOPHILS % (AUTO) 0.2 % (0.0-6.0); HEMATOCRIT 26 % (33-45); HEMOGLOBIN 8.1 g/dL (11.5-14.8); LYMPHOCYTES # (AUTO) 0.8 /CMM (0.8-4.8); MEAN CORPUSCULAR HGB CONC 32 g/dl (31.0-36.0); MEAN CORPUSCULAR VOLUME 103 fL (82-100); MONOCYTES # (AUTO) 1.3 /CMM (0.1-1.30); MONOCYTES % (AUTO) 6.6 % (2.0-12.0); NEUTROPHILS # (AUTO) 17.4 /CMM (1.8-8.9); PLATELET COUNT (AUTO) 131 /CMM (150-450); RED BLOOD CELL COUNT(AUTO) 2.49 MIL/uL (4.0-5.2); WHITE BLOOD COUNT (AUTO) 19.6 K/uL (4.3-11.0)
--- NOTE | 2020-09-18 04:51 | NUR ---
RN NOTES RECEIVED PATIENT FROM ICU VIA HOSPITAL BED IN NO S/SX OF ACUTE DISTRESS AT THIS TIME. NO SOB NOTED. PATIENT'S BREATHING IS EVEN AND UNLABORED. PATIENT ON MECHANICAL VENT; SETTINGS PRESCRIBED; PT TOLERATED WELL. AMBU BAG AT BED SIDE ALARMS SET PER PROTOCOL AND AUDIBLE. VENT PLUGGED IN TO RED OUTLET. NO DISTRESS NOTED. INITIAL VITALS SIGNS UPON RECEIPT FOLLOWS: T-97.9, HR-73 RR-18 O2SAT 100% AND BP-147/48. PATIENT HAS G TUBE; FLUSHING AND PATENT; SITE CLEAN DRY AND INTACT; WITH RUNNIG FEEDING OF NEPRO @65ML/HR. NOTED IV SITE ON R UA PICC LINE; PATENT, INTACT AND FLUSHING WELL; NO S/S OF INFECTION OR INFILTRATION. YIP CATH IN PLACE, MINIMAL URINE OUTPUT SAFETY MEASURES HAVE BEEN PROVIDED AND IMPLEMENTED. PATIENT BED ALARM IS ON. HEAD OF BED ELEVATED. BED IS LOCKED, IN LOWEST POSITION AND SIDE RAILS UP. CALL LIGHT WITHIN REACH OF THE PATIENT. APPLICABLE ISOLATION PRECAUTIONS IN PLACE. WILL CONTINUE TO MONITOR AND REASSESS FOR ANY CHANGES AND WILL CARRY OUT ANY ONGOING AND ACTIVE MD ORDER.
[2020-09-18 04:55] LABS: CALCIUM, SERUM 9.9 mg/dL (8.5-10.1); CARBON DIOXIDE 26 mmol/L (21-32); CHLORIDE 95 mmol/L (98-107); CREATININE 4.4 mg/dL (0.6-1.3); POTASSIUM 3.5 mmol/L (3.5-5.1); SODIUM SERUM 136 mmol/L (136-145); UREA NITROGEN, BLOOD 65 mg/dL (7-18)
--- NOTE | 2020-09-18 05:00 | NUR ---
RT pt transferred to sindhu with no complications vent plugged in to red outlet. spare trach at bedside. ambu bag at bedside. no sob. no resp distress. will continue to monitor.
[2020-09-18] MEDS: INSULIN REGULAR, HUMAN 100 UNIT/ML 3 ML VIAL SQ PRN ×4 (05:37→23:10)
[2020-09-18 05:38] LABS: GLUCOSE 363 mg/dL (74-106)
--- NOTE | 2020-09-18 05:45 | NUR ---
RN NOTES RECEIVED CALL FROM LAB REGARDING CRITICAL LAB FOR GLUCOSE @363MG/DL. TECHNICAL TRAINING SPECIALIST MADE AWARE. WILL INFORM DIONNE FONTANA. CALLED DIONNE FONTANA TO INFORM CRITICAL LAB FOR GLUCOSE @363MG/DL. NO ORDERS AT THIS TIME PER DIONNE FONTANA. TECHNICAL TRAINING SPECIALIST MADE AWARE.
[2020-09-18 05:56] LABS: BAND % (MANUAL) 1 % (0.0-5.0); LYMPHOCYTES % (MANUAL) 5 % (16-48); METAMYELOCYTES % 4 % (0-0); MONOCYTES % (MANUAL) 8 % (0-11.0); MYELOCYTES % 3 % (0-0); NEUTROPHILS % (MANUAL) 78 (42-76); REACTIVE LYMPHOCYTES 1 % (0-0)
--- NOTE | 2020-09-18 07:22 | NUR ---
RN CLOSING NOTE: PATIENT REMAINS IN ROOM. NO SIGNS OF RESPIRATORY DISTRESS. SAFETY MEASURES IMPLEMENTED, BED IN LOWEST POSITION, LOCKED, SIDE RAILS UP, CALL LIGHT WITHIN REACH. ALL NEEDS AND ORDERS ADDRESSED DURING THE SHIFT. ALL DUE MEDS GIVEN ORDERED & SCHEDULED ; PATIENT TOLERATED WELL.PATIENT KEPT CLEAN AND COMFORTABLE WITHIN THE SHIFT. ENDORSED TO INCOMING SHIFT RN FOR CONTINUITY OF CARE.
--- NOTE | 2020-09-18 07:50 | NUR ---
RN OPENING NOTE: PATIENT REMAINS IN ROOM. PT IS ON [facility] VENTILATION SETTINGS PER ORDER .NO SIGNS OF RESPIRATORY DISTRESS. RU PICC LINE IS INTACT,FLUSHING NO S/S OF INFILTRATION OR INFECTION. L CHEST HD CATH IS INTACT. PT HAS GT TUBE 1.2 NEPHRO AT 65 ML/HR, FLUSHING .SAFETY MEASURES ARE IMPLEMENTED PER HOSPITAL POLICY, BED IS IN LOWEST POSITION, LOCKED, SIDE RAILS UP X2, CALL LIGHT WITHIN REACH. WILL CONTINUITY TO MONITOR
[2020-09-18] MEDS: POLYVINYL ALCOHOL 15 ML BOTTLE OP SCH ×2 (08:43→16:58)
[2020-09-18] MEDS: MUPIROCIN OINT 2% 22 GM TUBE SCH ×2 (08:43→21:02)
[2020-09-18] MEDS: CLOTRIMAZOLE/BETAMETASONE DIPROPIONATE 15 GM TUBE TP SCH ×2 (08:44→16:38)
[2020-09-18] MEDS: DOCUSATE SODIUM LIQ 100 MG/10 ML UDC GT SCH (08:57)
[2020-09-18] MEDS: ACIDOPHILUS/BULGARICUS 1 EACH TAB.CHEW GT SCH ×2 (08:57→16:55)
[2020-09-18] MEDS: LEVOTHYROXINE SODIUM 25 MCG TABLET GT SCH (08:57)
[2020-09-18] MEDS: HYDROCORTISONE SOD SUCCINATE 100 MG/2 ML VIAL IV SCH (08:57)
[2020-09-18] MEDS: ESCITALOPRAM OXALATE (10 MG) 10 MG TABLET GT SCH (08:57)
[2020-09-18] MEDS: GABAPENTIN 100 MG CAPSULE GT SCH (08:57)
[2020-09-18] MEDS: SEVELAMER CARBONATE 800 MG POWD.PACK GT SCH ×3 (08:57→19:10)
[2020-09-18] MEDS: FAMOTIDINE (20 MG) 20 MG TABLET GT SCH (08:57)
[2020-09-18] MEDS: LORATADINE 10 MG TABLET GT SCH (08:58)
[2020-09-18] MEDS: LOSARTAN POTASSIUM 50 MG TABLET GT SCH (08:58)
[2020-09-18] MEDS: APIXABAN 2.5 MG TABLET GT SCH ×2 (08:59→16:57)
--- NOTE | 2020-09-18 09:50 | NUR ---
pt. transferred from 108 to 119-1. pt. used same mechanical ventilator, vent plugged into red outlet with alarm on and functioning. Addendum: 09/18/20 at 0952 by ROBERT STOLL RT Amended: Links added.
[2020-09-18] MEDS: PROSOURCE / PROSTAT (PYXIS) 30 ML UDC GT SCH (11:28)
--- NOTE | 2020-09-18 15:00 | NUR ---
RN NOTES PT HAS NO SOB OR RESPIRATORY DISTRESS
--- NOTE | 2020-09-18 17:33 | NUR ---
RN NOTES [facility] DIALYSIS NURSE AT THE BED SIDE
[2020-09-18] MEDS: NEPRO 1,000 ML BOTTLE GT PRN (19:10)
--- NOTE | 2020-09-18 19:25 | NUR ---
RN CLOSING NOTE: PATIENT REMAINS IN ROOM. PT IS ON [facility] VENTILATION SETTINGS PER ORDER .NO SIGNS OF RESPIRATORY DISTRESS. RU PICC LINE IS INTACT,FLUSHING NO S/S OF INFILTRATION OR INFECTION. L CHEST HD CATH IS INTACT. PT HAS GT TUBE 1.2 NEPHRO AT 65 ML/HR, FLUSHING .SAFETY MEASURES ARE IMPLEMENTED PER HOSPITAL POLICY, BED IS IN LOWEST POSITION, LOCKED, SIDE RAILS UP X2, CALL LIGHT WITHIN REACH. WILL CONTINUITY TO MONITOR
--- NOTE | 2020-09-18 19:30 | NUR ---
RN NOTE RECEIVED PATIENT IN BED, CONFUSED, IN NO S/SX OF ACUTE DISTRESS AT THIS TIME. PATIENT'S BREATHING IS EVEN AND UNLABORED. PATIENT IS ON TRACH CONNECTED TO MECHANICAL VENTILATOR WITH SETTINGS PRESCRIBED, TOLERATING WELL, SATURATING AT 100%. NOTED GTUBE INTACT, PLACEMENT WAS CHECKED BY ASPIRATION, AND AUSCULTATION, MINIMAL RESIDUAL NOTED, WITH TUBE FEEDING OF NEPRO AND REGULATED AT 65 ML/HR. NOTED LASHAE PICC LINE, PATENT AND FLUSHING WELL, AND L SUBCLAVIAN HD CATH, NO S/S OF INFECTION NOTED. SAFETY MEASURES IMPLEMENTED PER PROTOCOL. PATIENT BED ALARM IS ON. HEAD OF BED ELEVATED. BED IS LOCKED, IN LOWEST POSITION AND SIDE RAILS UP. CALL LIGHT WITHIN REACH OF THE PATIENT. WILL CONTINUE TO MONITOR AND REASSESS FOR ANY CHANGES.
[2020-09-18] MEDS: VANCOMYCIN 500 MG in IV D5W 100 ML IV PRN (19:37)
[2020-09-18] MEDS: INSULIN GLARGINE, 100 UNIT/ML CARTRIDGE SQ SCH (22:00)
[2020-09-19] VITALS: BP 110/42
[2020-09-19] MEDS: ALBUTEROL FS 2.5 MG/0.5 ML VIAL.NEB NEB SCH ×4 (00:55→20:23)
[2020-09-19] MEDS: ACETYLCYSTEINE 10% SOLN 400 MG/4 ML VIAL NEB SCH ×4 (00:55→23:50)
[2020-09-19] MEDS: IPRATROPIUM NEB FS 0.5 MG/2.5 ML AMPUL.NEB IH SCH ×4 (00:55→20:22)
[2020-09-19] MEDS: PIPERACILLIN /TAZOBACTAM 2.25 G in IV D5W 50 ML IV SCH ×3 (02:55→18:03)
[2020-09-19 04:00] VITALS: BP 120/78
--- NOTE | 2020-09-19 04:00 | NUR ---
RN NOTE NOTED TEMP 99.0 DEG F, COOLING MEASURES PROVIDED. WILL CONTINUE TO MONITOR TEMP.
[2020-09-19] MEDS: BLOOD SUGAR DIAGNOSTIC 1 EACH STRIP IN SCH ×3 (05:40→17:07)
[2020-09-19] MEDS: INSULIN REGULAR, HUMAN 100 UNIT/ML 3 ML VIAL SQ PRN ×3 (05:42→23:11)
--- NOTE | 2020-09-19 07:24 | NUR ---
RN NOTE PATIENT IN BED, NO SIGN OF ACUTE DISTRESS, ON TRACH CONNECTED TO MECHANICAL VENTILATOR WITH SETTINGS PRESCRIBED, TOLERATING WELL, SATURATING AT 100%. ON TELE MONITOR READING AFIB CONTROLLED AT 70'S. GTUBE INTACT, PLACEMENT WAS CHECKED BY ASPIRATION, AND AUSCULTATION, FEEDING OF NEPRO AT 65 ML/HR ONGOING. LASHAE PICC LINE, PATENT AND FLUSHING WITH NS AT TKO, L SUBCLAVIAN HD CATH AND DRESSING DRY AND INTACT, SAFETY MEASURES IMPLEMENTED PER PROTOCOL. ASPIRATION PRECAUTIONS OBSERVED AT ALL TIMES. LATEST TEMP 98.7 DEG F. ENDORSED TO DAVID VASQUEZ FOR CONTINUATION OF CARE.
--- NOTE | 2020-09-19 07:30 | NUR ---
TREATMENT PLANT OPERATOR AM NOTE: RECEIVED PT IN BED, AO X 1, WITH SHILEY 7 TRACH TO MECHANICAL VENT, SETTINGS PER MD ORDER, AC 18 TV 500 FIO2 30% PEEP 0, NO SIGNS OF RESPIRATORY DISTRESS. BREATHING EVEN AND UNLABORED, AFIB ON MONITOR. NO SIGNS OF PAIN OR DISCOMFORT, LASHAE PICC LINE, FLUSHES WELL, SITE CLEAR WITH CDI DRESSING, L CHEST HD CATH IS INTACT, CDI DRESSING, GT TUBE FEEDING OF NEPHRO AT 65 ML/HR, ONGOING ON AT 1900 OFF AT 1300, 0 RESIDUAL. SEE NURSING FLOWSHEET FOR SKIN ISSUES.SAFETY MEASURES ARE IMPLEMENTED PER HOSPITAL POLICY, BED IS IN LOWEST POSITION, LOCKED, SIDE RAILS UP X2, CALL LIGHT WITHIN REACH. WILL CONTINUITY TO MONITOR
[2020-09-19 07:44] LABS: CALCIUM, SERUM 9.8 mg/dL (8.5-10.1); CARBON DIOXIDE 28 mmol/L (21-32); CHLORIDE 99 mmol/L (98-107); CREATININE 3.3 mg/dL (0.6-1.3); GLUCOSE 177 mg/dL (74-106); POTASSIUM 3.5 mmol/L (3.5-5.1); SODIUM SERUM 136 mmol/L (136-145); UREA NITROGEN, BLOOD 60 mg/dL (7-18)
[2020-09-19 08:00] VITALS: BP 151/65
[2020-09-19] MEDS: DOCUSATE SODIUM LIQ 100 MG/10 ML UDC GT SCH (08:42)
[2020-09-19] MEDS: SEVELAMER CARBONATE 800 MG POWD.PACK GT SCH ×3 (08:42→17:11)
[2020-09-19] MEDS: LORATADINE 10 MG TABLET GT SCH (08:43)
[2020-09-19] MEDS: GABAPENTIN 100 MG CAPSULE GT SCH (08:43)
[2020-09-19] MEDS: FAMOTIDINE (20 MG) 20 MG TABLET GT SCH (08:43)
[2020-09-19] MEDS: ESCITALOPRAM OXALATE (10 MG) 10 MG TABLET GT SCH (08:43)
[2020-09-19] MEDS: ACIDOPHILUS/BULGARICUS 1 EACH TAB.CHEW GT SCH ×2 (08:43→17:11)
[2020-09-19] MEDS: LEVOTHYROXINE SODIUM 25 MCG TABLET GT SCH (08:43)
[2020-09-19] MEDS: PROSOURCE / PROSTAT (PYXIS) 30 ML UDC GT SCH (08:44)
[2020-09-19] MEDS: APIXABAN 2.5 MG TABLET GT SCH ×2 (08:44→17:13)
[2020-09-19] MEDS: LOSARTAN POTASSIUM 50 MG TABLET GT SCH (08:50)
[2020-09-19] MEDS: POLYVINYL ALCOHOL 15 ML BOTTLE OP SCH ×2 (08:53→17:14)
[2020-09-19] MEDS: MUPIROCIN OINT 2% 22 GM TUBE SCH ×2 (08:53→21:57)
[2020-09-19] MEDS: CLOTRIMAZOLE/BETAMETASONE DIPROPIONATE 15 GM TUBE TP SCH ×2 (08:54→17:14)
--- NOTE | 2020-09-19 09:30 | NUR ---
RN NOTES DUE MEDS GIVEN
[2020-09-19 12:00] VITALS: BP 135/50
[2020-09-19 16:00] VITALS: BP 134/55
[2020-09-19] MEDS: NEPRO 1,000 ML BOTTLE GT PRN (18:05)
--- NOTE | 2020-09-19 18:29 | NUR ---
MARKETING BUSINESS ANALYST CLOSING NOTE: PT RESTING IN BED, AO X 1, WITH SHILEY 7 TRACH TO MECHANICAL VENT, SETTINGS PER MD ORDER, AC 18 TV 500 FIO2 30% PEEP 0, NO SIGNS OF RESPIRATORY DISTRESS. BREATHING EVEN AND UNLABORED, AFIB ON MONITOR. NO SIGNS OF PAIN OR DISCOMFORT, LASHAE PICC LINE, FLUSHES WELL, SITE CLEAR WITH CDI DRESSING, L CHEST HD CATH IS INTACT, CDI DRESSING, GT TUBE FEEDING OF NEPHRO AT 65 ML/HR, ONGOING ON AT 1900 OFF AT 1300, 0 RESIDUAL. SAFETY MEASURES ARE IMPLEMENTED PER HOSPITAL POLICY, BED IS IN LOWEST POSITION, LOCKED, SIDE RAILS UP X2, CALL LIGHT WITHIN REACH.PRESCRIBED WOUND TREATMENT AND PM CARE DONE EARLIER. TURNED AND REPOSITIONED Q 2 HOURS. ALL NEEDS MET AT THIS TIME. NO OTHER SIGNIFICANT CHANGE OF CONDITION NOTED. WILL ENDORSE TO NEXT SHIFT FOR JOHN.
--- NOTE | 2020-09-19 19:50 | NUR ---
MECHANICAL ENERGY ENGINEER NOTE PT IN BED EYES CLOSED. AROUSABLE. ON VENT/TRACH TOLERATING THE SETTINGS WELL, 100 O2 SAT AT THIS TIME. NO DISTRESS OR DISCOMFORT NOTED. DENIES PAIN. GTF NEPRO INFUSING AT 65 ML/HR, 0 ML RESIDUAL NOTED. KEPT HOB ELEVATED. LASHAE WITH PICC INTACT AND PATENT. LT CHEST WALL WITH SUBCLAVIAN HD CATH. INTACT WITH DRESSING ON. ON TELE A FIB CONTROLLED HR 70. REPOSITION HER FOR SKIN MANAGEMENT. SIDE RAILS UP X 2 AND CALL LIGHT WITHIN REACH. VSS. CONTINUE TO MONITOR HER.
[2020-09-19 20:00] VITALS: BP 113/38
[2020-09-19] MEDS: INSULIN GLARGINE, 100 UNIT/ML CARTRIDGE SQ SCH (23:09)
[2020-09-20] MEDS: BLOOD SUGAR DIAGNOSTIC 1 EACH STRIP IN SCH ×5 (00:57→22:49)
[2020-09-20 01:05] VITALS: BP 125/38
[2020-09-20] MEDS: IPRATROPIUM NEB FS 0.5 MG/2.5 ML AMPUL.NEB IH SCH ×4 (02:33→19:33)
[2020-09-20] MEDS: ALBUTEROL FS 2.5 MG/0.5 ML VIAL.NEB NEB SCH ×4 (02:34→19:33)
[2020-09-20 04:00] VITALS: BP 129/38
[2020-09-20] MEDS: PIPERACILLIN /TAZOBACTAM 2.25 G in IV D5W 50 ML IV SCH ×3 (04:13→18:04)
[2020-09-20 06:00] LABS: BASOPHILS # (AUTO) 0.1 /CMM (0.0-0.2); BASOPHILS % (AUTO) 0.7 % (0.0-2.0); EOSINOPHILS % (AUTO) 3.9 % (0.0-6.0); HEMATOCRIT 31 % (33-45); HEMOGLOBIN 9.6 g/dL (11.5-14.8); LYMPHOCYTES # (AUTO) 1.6 /CMM (0.8-4.8); LYMPHOCYTES % (AUTO) 8.5 % (20.0-44.0); MEAN CORPUSCULAR HGB CONC 32 g/dl (31.0-36.0); MEAN CORPUSCULAR VOLUME 104 fL (82-100); MONOCYTES # (AUTO) 1.6 /CMM (0.1-1.30); MONOCYTES % (AUTO) 8.5 % (2.0-12.0); NEUTROPHILS # (AUTO) 14.5 /CMM (1.8-8.9); NEUTROPHILS % (AUTO) 78.4 % (43.0-81.0); PLATELET COUNT (AUTO) 123 /CMM (150-450); RED BLOOD CELL COUNT(AUTO) 2.93 MIL/uL (4.0-5.2); WHITE BLOOD COUNT (AUTO) 18.5 K/uL (4.3-11.0)
[2020-09-20] MEDS: INSULIN REGULAR, HUMAN 100 UNIT/ML 3 ML VIAL SQ PRN ×4 (06:07→22:49)
[2020-09-20 06:10] LABS: CALCIUM, SERUM 10.4 mg/dL (8.5-10.1); CARBON DIOXIDE 24 mmol/L (21-32); CHLORIDE 97 mmol/L (98-107); CREATININE 4.3 mg/dL (0.6-1.3); GLUCOSE 214 mg/dL (74-106); POTASSIUM 4.3 mmol/L (3.5-5.1); SODIUM SERUM 134 mmol/L (136-145)
[2020-09-20 06:12] LABS: UREA NITROGEN, BLOOD 84 mg/dL (7-18)
--- NOTE | 2020-09-20 06:45 | NUR ---
DIRECTOR UNIVERSITY NOTE SCIENTIFIC PUBLICATIONS EDITOR INFORMED ME BUN LEVEL WENT UP TO 84. LEFT A MESSAGE FOR DMITERY DENTAL LABORATORY ASSISTANT. WILL INFORME DAY SHIFT NURSE TO FOLLOW UP.
--- NOTE | 2020-09-20 06:52 | NUR ---
SUPERVISOR BODY ASSEMBLY NOTE PT IN BED ASLEEP, NO DISTRESS OR DISCOMFORT NOTED. DENIES PAIN. TOLERATING VENT SETTINGS WELL.GTF INFUSING WELL, 0 ML RESIDUAL NOTED. REPOSITION HER Q2H, KEPT HER DRY AND CLEAN. ALL NEEDS ATTENDED. WILL ENDORSE TO DAY SHIFT NURSE FOR CONTINUE TO CARE.
[2020-09-20] MEDS: ACETYLCYSTEINE 10% SOLN 400 MG/4 ML VIAL NEB SCH ×3 (07:20→22:56)
--- NOTE | 2020-09-20 07:35 | NUR ---
RN NOTES RECEIVED PT IN BED EYES CLOSED. AROUSABLE. ON VENT/TRACH TOLERATING THE SETTINGS WELL. NO DISTRESS OR DISCOMFORT NOTED AT THIS TIME. GTF NEPRO INFUSING AT 65 ML/HR, NO RESIDUAL NOTED. KEPT HOB ELEVATED. LASHAE WITH PICC INTACT AND PATENT. LT CHEST WALL WITH SUBCLAVIAN HD CATH. INTACT WITH DRESSING ON. ON TELE A FIB CONTROLLED HR 70'S. SIDE RAILS UP X 2 AND CALL LIGHT WITHIN REACH. WILL CONTINUE TO MONITOR.
[2020-09-20 08:00] VITALS: BP 122/55
[2020-09-20] MEDS: LORATADINE 10 MG TABLET GT SCH (08:30)
[2020-09-20] MEDS: SEVELAMER CARBONATE 800 MG POWD.PACK GT SCH ×3 (08:30→17:03)
[2020-09-20] MEDS: FAMOTIDINE (20 MG) 20 MG TABLET GT SCH (08:30)
[2020-09-20] MEDS: GABAPENTIN 100 MG CAPSULE GT SCH (08:30)
[2020-09-20] MEDS: LEVOTHYROXINE SODIUM 25 MCG TABLET GT SCH (08:30)
--- NOTE | 2020-09-20 08:30 | NUR ---
RN NOTES MD MADE AWARE REGARDING BUN OF 84, NNO. PATIENT IS SCHEDULE FOR DIALYSIS TODAY. WILL CONTINUE TO MONITOR.
[2020-09-20] MEDS: DOCUSATE SODIUM LIQ 100 MG/10 ML UDC GT SCH (08:31)
[2020-09-20] MEDS: ACIDOPHILUS/BULGARICUS 1 EACH TAB.CHEW GT SCH ×2 (08:31→16:38)
[2020-09-20] MEDS: ESCITALOPRAM OXALATE (10 MG) 10 MG TABLET GT SCH (08:31)
[2020-09-20] MEDS: APIXABAN 2.5 MG TABLET GT SCH ×2 (08:31→16:39)
[2020-09-20] MEDS: PROSOURCE / PROSTAT (PYXIS) 30 ML UDC GT SCH (08:32)
[2020-09-20] MEDS: LOSARTAN POTASSIUM 50 MG TABLET GT SCH (08:33)
[2020-09-20] MEDS: CLOTRIMAZOLE/BETAMETASONE DIPROPIONATE 15 GM TUBE TP SCH ×2 (09:11→17:02)
[2020-09-20] MEDS: POLYVINYL ALCOHOL 15 ML BOTTLE OP SCH ×2 (09:11→17:02)
[2020-09-20] MEDS: MUPIROCIN OINT 2% 22 GM TUBE SCH ×2 (09:11→22:45)
[2020-09-20 10:18] LABS: BAND % (MANUAL) 7 % (0.0-5.0); LYMPHOCYTES % (MANUAL) 8 % (16-48); METAMYELOCYTES % 3 % (0-0); MONOCYTES % (MANUAL) 4 % (0-11.0); MYELOCYTES % 1 % (0-0); NEUTROPHILS % (MANUAL) 77 (42-76)
--- NOTE | 2020-09-20 11:30 | NUR ---
RN NOTES DIALYSIS NURSE ON UNIT, PATIENT WILL BE DIALYZE BEDSIDE, NO SIGNS OF DISTRESS. WILL CONTINUE TO MONITOR.
[2020-09-20] MEDS: NEPRO 1,000 ML BOTTLE GT PRN (11:40)
[2020-09-20 12:00] VITALS: BP 111/52
--- NOTE | 2020-09-20 13:30 | NUR ---
RN NOTES DIALYSIS ON BEDSIDE DONE, 1L OUTPUT, V/S WNL. NO SIGNS OF DISTRESS.
[2020-09-20] MEDS: VANCOMYCIN 500 MG in IV D5W 100 ML IV PRN (15:24)
[2020-09-20 16:00] VITALS: BP 108/50
--- NOTE | 2020-09-20 18:29 | NUR ---
RN NOTES PT IN BED RESTING COMFORTABLY IN MODERATE HIGH BACK REST. NON VERBAL, AROUSABLE TO TOUCH. ON VENT/TRACH TOLERATING THE SETTINGS WELL. NO DISTRESS NOTED THROUGHOUT THE SHIFT. GTF NEPRO AT 65 ML/HR, CURRENTLY TURN OFF AND WILL BE TURN ON 19:00. LASHAE WITH PICC INTACT AND PATENT. LT CHEST WALL WITH SUBCLAVIAN HD CATH. S/P HD WITH OUTPUT OF 1L. INTACT WITH DRESSING ON. ON TELE A FIB CONTROLLED HR 70'S. SIDE RAILS UP X 2 AND CALL LIGHT WITHIN REACH. DUE MEDS GIVEN, WILL ENDORSE TO BENCH WORKER APPRENTICE NURSE FOR JOHN.
--- NOTE | 2020-09-20 19:10 | NUR ---
BRANCH SPECIALIST NOTE RECEIVED PT IN BED ASLEEP, AROUSABLE. REMAIN ON VENT/TRACH TOLERATING THE SETTINGS WELL, SUCTION HER FREQUENTLY, THICK YELLOWISH SECRETIONS NOTED.ON TELE AFIB CONTROLLED HR 73. ALSO STARTED GTF NEPRO AT 65 ML/HR, 0 ML RESIDUAL NOTED. ON TELE KEPT HER DRY AND CLEAN. REPOSITION HER FOR SKIN MANAGEMENT. KEPT HOB ELEVATED. VSS. CONTINUE TO MONITOR.
[2020-09-20 20:00] VITALS: BP 103/40
--- NOTE | 2020-09-20 20:16 | NUR ---
RT NOTE PT RECEIVED TRACHED WITH SHILEY 7 XLT ON MECHANICAL VENTILATION. CUFF CHECKED. HHN TX GIVEN, NO ADVERSE REACTIONS NOTED. SX DONE, TRACH SECURED AND PATENT. ALARMS ON AND AUDIBLE. NO DISTRESS NOTED AT THIS TIME. CONT. PULSE OX CONNECTED. WILL CONTINUE TO MONITOR CLOSELY. Addendum: 09/20/20 at 2020 by JOSEPH FLORES RT Amended: Links added.
[2020-09-20] MEDS: METRONIDAZOLE 500 MG TABLET PO SCH (22:42)
[2020-09-20] MEDS: MEROPENEM 500 MG in IV NS 0.9% 50 ML IV SCH (22:43)
[2020-09-20] MEDS: INSULIN GLARGINE, 100 UNIT/ML CARTRIDGE SQ SCH (22:48)
[2020-09-21] VITALS: BP 121/44
[2020-09-21] MEDS: ALBUTEROL FS 2.5 MG/0.5 ML VIAL.NEB NEB SCH ×4 (00:38→20:13)
[2020-09-21] MEDS: IPRATROPIUM NEB FS 0.5 MG/2.5 ML AMPUL.NEB IH SCH ×4 (00:38→20:13)
[2020-09-21 04:00] VITALS: BP 124/44
[2020-09-21] MEDS: METRONIDAZOLE 500 MG TABLET PO SCH ×3 (05:08→20:12)
[2020-09-21] MEDS: BLOOD SUGAR DIAGNOSTIC 1 EACH STRIP IN SCH ×4 (05:08→23:10)
[2020-09-21] MEDS: INSULIN REGULAR, HUMAN 100 UNIT/ML 3 ML VIAL SQ PRN ×4 (05:11→23:14)
[2020-09-21 06:26] LABS: BASOPHILS # (AUTO) 0.1 /CMM (0.0-0.2); BASOPHILS % (AUTO) 0.6 % (0.0-2.0); EOSINOPHILS % (AUTO) 4.9 % (0.0-6.0); HEMATOCRIT 24 % (33-45); HEMOGLOBIN 7.7 g/dL (11.5-14.8); LYMPHOCYTES # (AUTO) 1.1 /CMM (0.8-4.8); LYMPHOCYTES % (AUTO) 5.9 % (20.0-44.0); MEAN CORPUSCULAR HGB CONC 32 g/dl (31.0-36.0); MEAN CORPUSCULAR VOLUME 104 fL (82-100); MONOCYTES # (AUTO) 1.1 /CMM (0.1-1.30); MONOCYTES % (AUTO) 5.9 % (2.0-12.0); NEUTROPHILS # (AUTO) 15.5 /CMM (1.8-8.9); NEUTROPHILS % (AUTO) 82.7 % (43.0-81.0); PLATELET COUNT (AUTO) 99 /CMM (150-450); RED BLOOD CELL COUNT(AUTO) 2.32 MIL/uL (4.0-5.2); WHITE BLOOD COUNT (AUTO) 18.8 K/uL (4.3-11.0)
[2020-09-21 06:29] LABS: CALCIUM, SERUM 9.4 mg/dL (8.5-10.1); CARBON DIOXIDE 27 mmol/L (21-32); CHLORIDE 96 mmol/L (98-107); CREATININE 3.4 mg/dL (0.6-1.3); GLUCOSE 217 mg/dL (74-106); POTASSIUM 3.8 mmol/L (3.5-5.1); SODIUM SERUM 133 mmol/L (136-145); UREA NITROGEN, BLOOD 57 mg/dL (7-18)
--- NOTE | 2020-09-21 06:43 | NUR ---
TUMBLE TAILSTOCK TURRET LATHE OPERATOR NOTE PT IN BED ASLEEP, AROUSABLE., NO DISTRESS OR DISCOMFORT NOTED. NO S/S OF PAIN NOTED. REMAIN ON VENT/TRACH TOLERATING SETTINGS WELL. ON TELE CONTROLLED A FIB RH 53. LOWEST HR FOR THE SHIFT WAS 44, GTF INFUSING WELL, 0 ML RESIDUAL NOTED. KEPT HER DRY AND CLEAN. REPOSITION HER Q2H, KEPT HER DRY AND CLEAN. SIDE RAILS UP X 2 AND CALL LIGHT WITHIN REACH. WILL ENDORSE TO DAY SHIFT NURSE FOR CONTINUE TO CARE
[2020-09-21 07:16] LABS: EOSINOPHILS % (MANUAL) 9 % (0-4); LYMPHOCYTES % (MANUAL) 3 % (16-48); MONOCYTES % (MANUAL) 11 % (0-11.0); NEUTROPHILS % (MANUAL) 77 (42-76)
--- NOTE | 2020-09-21 07:48 | NUR ---
telephone operator chief note patient in bed with trach to vent setting as ordered on tele monitor afib hr [address] diaz notified that last night hr afib was 44-53 , on g tube feeding as ordered, keep hob elevated at all time ,no residual noted , rt upper arm picc line in place intact and flushed well bed in lowest and lowest position
[2020-09-21 08:00] VITALS: BP 112/44
[2020-09-21] MEDS: SEVELAMER CARBONATE 800 MG POWD.PACK GT SCH ×3 (08:22→17:00)
[2020-09-21] MEDS: FAMOTIDINE (20 MG) 20 MG TABLET GT SCH (08:23)
[2020-09-21] MEDS: ESCITALOPRAM OXALATE (10 MG) 10 MG TABLET GT SCH (08:23)
[2020-09-21] MEDS: APIXABAN 2.5 MG TABLET GT SCH ×2 (08:23→16:58)
[2020-09-21] MEDS: LOSARTAN POTASSIUM 50 MG TABLET GT SCH (08:23)
[2020-09-21] MEDS: ACIDOPHILUS/BULGARICUS 1 EACH TAB.CHEW GT SCH ×2 (08:23→16:59)
[2020-09-21] MEDS: LEVOTHYROXINE SODIUM 25 MCG TABLET GT SCH (08:23)
[2020-09-21] MEDS: GABAPENTIN 100 MG CAPSULE GT SCH (08:24)
[2020-09-21] MEDS: LORATADINE 10 MG TABLET GT SCH (08:24)
[2020-09-21] MEDS: DOCUSATE SODIUM LIQ 100 MG/10 ML UDC GT SCH (08:25)
[2020-09-21] MEDS: PROSOURCE / PROSTAT (PYXIS) 30 ML UDC GT SCH (08:25)
[2020-09-21] MEDS: NEPRO 1,000 ML BOTTLE GT PRN ×2 (08:27→20:25)
[2020-09-21] MEDS: ACETYLCYSTEINE 10% SOLN 400 MG/4 ML VIAL NEB SCH ×2 (09:47→14:08)
[2020-09-21] MEDS: CLOTRIMAZOLE/BETAMETASONE DIPROPIONATE 15 GM TUBE TP SCH ×2 (10:00→17:04)
[2020-09-21] MEDS: POLYVINYL ALCOHOL 15 ML BOTTLE OP SCH ×2 (10:00→17:04)
[2020-09-21] MEDS: MUPIROCIN OINT 2% 22 GM TUBE SCH ×2 (10:00→20:14)
[2020-09-21] MEDS: MEROPENEM 500 MG in IV NS 0.9% 50 ML IV SCH ×2 (10:02→20:09)
--- NOTE | 2020-09-21 10:46 | NUR ---
VP EMERGING MEDIA NOTE REPOSITION DONE ,KEEP CLEAN DRY ,CONT ON VENT SETTING ,WILL MONITOR
--- NOTE | 2020-09-21 11:26 | NUR ---
telecommunicator supervisor note per karlo clark to give eliquis aware that hg 7.7 with order ob to collect, will f\u
[2020-09-21 12:00] VITALS: BP 104/48
[2020-09-21 12:39] LABS: OCCULT BLOOD STOOL NEGATIVE (NEGATIVE)
--- NOTE | 2020-09-21 15:00 | NUR ---
PROMOTIONS OFFICER NOTE ALL NEEDS ATTENDED, TURN REPOSITION ,ABLE TO MAKE BM, JOSE FOR OB COLLECTED ORDERED ,KEEP CLEAN DRY , WILL CONT TO MONITOR
[2020-09-21 16:00] VITALS: BP 128/51
[2020-09-21] MEDS: ACETAMINOPHEN 325 MG TABLET PO PRN (16:58)
--- NOTE | 2020-09-21 17:43 | NUR ---
NATURAL GAS BASIS TRADER NOTE TRACH CARE DONE, ALL NEEDS ATTENDED, WILL CONT TO MONITOR. T 100.0 ,COOLING MEASURE,INITIATED, TYLENOL VIA G TUBE GIVEN ,WILL MONITOR
--- NOTE | 2020-09-21 18:08 | NUR ---
MARINE PIPEFITTER HELPER NOTE DARINA RN ACCESS DIRECTOR ID AT BEDSIDE AWARE THAT T 100.[address] ,ORDERED BLOOD CX FROM HD CATH BY HD NURSE, WILL F\U
--- NOTE | 2020-09-21 19:07 | NUR ---
MARKETING PRODUCTION COORDINATOR NOTE ALL NEEDS ATTENDED ,CONT ON VENT SETTING ORDERED, WILL CONT TO MONITOR
[2020-09-21 20:00] VITALS: BP 109/40
[2020-09-21] MEDS: INSULIN GLARGINE, 100 UNIT/ML CARTRIDGE SQ SCH (23:12)
[2020-09-22] VITALS: BP 113/55
[2020-09-22] MEDS: ACETYLCYSTEINE 10% SOLN 400 MG/4 ML VIAL NEB SCH ×4 (00:17→23:03)
[2020-09-22] MEDS: IPRATROPIUM NEB FS 0.5 MG/2.5 ML AMPUL.NEB IH SCH ×4 (01:03→19:30)
[2020-09-22] MEDS: ALBUTEROL FS 2.5 MG/0.5 ML VIAL.NEB NEB SCH ×4 (01:03→19:30)
[2020-09-22 04:00] VITALS: BP 139/36
--- NOTE | 2020-09-22 04:20 | NUR ---
TELE-1/DIRECTOR ENTERPRISE SALES LARGE AMOUNT OF GASTRIC DRAINAGE NOTED COMING FROM G-TUBE STOMA. FEEDING HELD. DR. RODARTE NOTIFIED. NO NEW ORDERS. WILL ENDORSE TO AM SHIFT TO HAVE MD ADDRESS. WILL CONTINUE TO MONITOR.
[2020-09-22] MEDS: METRONIDAZOLE 500 MG TABLET PO SCH ×3 (05:00→20:48)
--- NOTE | 2020-09-22 05:21 | NUR ---
MED NOTE: 0500 FLAGYL HELD G-TUBE IS LEAKING. WILL ENDORSE TO AM SHIFT.
[2020-09-22 06:06] LABS: BASOPHILS # (AUTO) 0.1 /CMM (0.0-0.2); BASOPHILS % (AUTO) 0.6 % (0.0-2.0); EOSINOPHILS % (AUTO) 5.9 % (0.0-6.0); HEMATOCRIT 24 % (33-45); HEMOGLOBIN 7.7 g/dL (11.5-14.8); LYMPHOCYTES # (AUTO) 1.1 /CMM (0.8-4.8); LYMPHOCYTES % (AUTO) 5.9 % (20.0-44.0); MEAN CORPUSCULAR HGB CONC 32 g/dl (31.0-36.0); MEAN CORPUSCULAR VOLUME 103 fL (82-100); MONOCYTES # (AUTO) 0.9 /CMM (0.1-1.30); MONOCYTES % (AUTO) 4.6 % (2.0-12.0); NEUTROPHILS # (AUTO) 15.7 /CMM (1.8-8.9); PLATELET COUNT (AUTO) 112 /CMM (150-450); RED BLOOD CELL COUNT(AUTO) 2.31 MIL/uL (4.0-5.2); WHITE BLOOD COUNT (AUTO) 18.9 K/uL (4.3-11.0)
[2020-09-22] MEDS: BLOOD SUGAR DIAGNOSTIC 1 EACH STRIP IN SCH ×4 (06:08→23:42)
[2020-09-22 06:14] LABS: CALCIUM, SERUM 9.7 mg/dL (8.5-10.1); CARBON DIOXIDE 26 mmol/L (21-32); CHLORIDE 96 mmol/L (98-107); CREATININE 4.2 mg/dL (0.6-1.3); GLUCOSE 185 mg/dL (74-106); MAGNESIUM 2.6 mg/dL (1.8-2.4); PHOSPHORUS 3.4 mg/dL (2.5-4.9); POTASSIUM 4.1 mmol/L (3.5-5.1); SODIUM SERUM 133 mmol/L (136-145); UREA NITROGEN, BLOOD 70 mg/dL (7-18)
--- NOTE | 2020-09-22 07:30 | NUR ---
RN TELE1 PATIENT IN BED, NO S/S OF DISTRESS, ON VENT WITH SHILEY TRACH 8, 18 AC, 500 TV, 30% FIO2, 0 PEEP, O2 SAT 97%. ON EXTERNAL TELE MONITOR, CONTROLLED A FIB, GENERALIZED EDEMA, DIAPER IN PLACE CLEAN AND DRY, EXCORIATION ON SACRUM AND PERINEUM, NEPRO IS HELD FOR CONCERN OF DISLODGEMENT OF G TUBE, NOTIFYING MD AND WILL FOLLOW UP ACCORDING TO ORDERS, R UA PICC PATENT INTACT AND DRY L CHEST HD CATH CLEAN AND INTACT, VITAL SIGNS STABLE, BD IN LOWEST LOCKED POSITION, SAFETY MEASURES IN PLACE, CALL LIGHT WITHIN REACH, WILL CONTINUE TO MONITOR.
[2020-09-22 08:00] VITALS: BP 124/39
[2020-09-22] MEDS: SEVELAMER CARBONATE 800 MG POWD.PACK GT SCH ×3 (08:00→17:33)
--- NOTE | 2020-09-22 08:50 | NUR ---
VISUAL ASSOCIATE NOTE CALLED DR BALL TO INF ABOUT GT LEAKING LAST NIGHT AWAITING RESPONSE.
[2020-09-22] MEDS: MEROPENEM 500 MG in IV NS 0.9% 50 ML IV SCH ×2 (08:58→20:48)
[2020-09-22] MEDS: MUPIROCIN OINT 2% 22 GM TUBE SCH ×2 (09:00→20:49)
[2020-09-22] MEDS: GABAPENTIN 100 MG CAPSULE GT SCH (09:00)
[2020-09-22] MEDS: DOCUSATE SODIUM LIQ 100 MG/10 ML UDC GT SCH (09:00)
[2020-09-22] MEDS: FAMOTIDINE (20 MG) 20 MG TABLET GT SCH (09:00)
[2020-09-22] MEDS: LORATADINE 10 MG TABLET GT SCH (09:00)
[2020-09-22] MEDS: APIXABAN 2.5 MG TABLET GT SCH ×2 (09:00→16:30)
[2020-09-22] MEDS: ESCITALOPRAM OXALATE (10 MG) 10 MG TABLET GT SCH (09:00)
[2020-09-22] MEDS: LOSARTAN POTASSIUM 50 MG TABLET GT SCH (09:00)
[2020-09-22] MEDS: ACIDOPHILUS/BULGARICUS 1 EACH TAB.CHEW GT SCH ×2 (09:00→16:29)
[2020-09-22] MEDS: PROSOURCE / PROSTAT (PYXIS) 30 ML UDC GT SCH (09:00)
[2020-09-22] MEDS: POLYVINYL ALCOHOL 15 ML BOTTLE OP SCH ×2 (09:00→16:31)
[2020-09-22] MEDS: LEVOTHYROXINE SODIUM 25 MCG TABLET GT SCH (09:00)
[2020-09-22] MEDS: CLOTRIMAZOLE/BETAMETASONE DIPROPIONATE 15 GM TUBE TP SCH ×2 (09:00→16:31)
--- NOTE | 2020-09-22 09:00 | NUR ---
RN TELE1 DID NOT ADMINISTER MEDS THAT WERE ORDERED FOR G TUBE BECAUSE THERE IS CONCERN THE G TUBE IS DISLODGED. ORDER FOR PLACEMENT CONFIRMATION HAS BEEN MADE AND MD NOTIFIED.
--- NOTE | 2020-09-22 09:03 | NUR ---
LAWN MOWER MECHANIC NOTE SPOKE TO DR BALL ORDERED CHEST X RAY TO CHECK FOR GT DISLODGEMENT, ORDER CARRIED OUT.
--- NOTE | 2020-09-22 10:00 | NUR ---
RN TELE1 SPUTUM CULTURE COLLECTED BY RT. CALLED LAB TO NOTIFY THEM TO DEPUTY PROGRAM MANAGER THE SAMPLE
--- NOTE | 2020-09-22 10:40 | NUR ---
LAB COLLECTED BLOOD FROM HD.
--- NOTE | 2020-09-22 10:43 | NUR ---
ADRIÁN ORDERED BY DR BALL
[2020-09-22 12:00] VITALS: BP 121/43
[2020-09-22] MEDS ORDERED: DIATR MEGLU/DIATRIZOATE SODIUM 30 ML BOTTLE (GASTROGRAPHIN) ONE (12:14)
--- NOTE | 2020-09-22 12:15 | NUR ---
CAMPAIGN ASSOCIATE NOTE INJECTED CONTRAST INTO G TUBE WITH RADIOLOGY PRESENT FOR PERFORMANCE OF THE KUB IN ORDER TO CHECK G TUBE PLACEMENT
--- NOTE | 2020-09-22 12:30 | NUR ---
RN TELE1 HELD QUETAO BECAUSE TROUGH WAS 22.
--- NOTE | 2020-09-22 12:30 | NUR ---
RN TELE1 PATIENT JUST FINISHED DIALYSIS, TOLERATED WELL, 1 LITER OUT.
--- NOTE | 2020-09-22 14:16 | NUR ---
CALLED DR BALL REGARDING KUB RESULTS AWAITING RESPONSE.
--- NOTE | 2020-09-22 14:20 | NUR ---
PER QUINN MARTIN TO CONT GTF
[2020-09-22] MEDS: NEPRO 1,000 ML BOTTLE GT PRN (14:22)
[2020-09-22 16:00] VITALS: BP 94/31
--- NOTE | 2020-09-22 18:35 | NUR ---
RN TELE1 PATIENT IN BED, NO S/S OF DISTRESS, ON VENT, TRACH SHILEY 8, 18 AC, 500TV, 30% FIO2, 0 PEEP, O2 SAT 97%, A/O X1, EXTERIOR TELE MONITOR ON, CONTROLLED A FIB, TUBE FEEDING RESTARTED AT 1430, 65ML/HR NEPRO, TOTAL INTAKE VIA TUBE FEED IS 195, TOTAL INTAKE 495, 0 URINE, KUB PERFORMED TO CHECK PLACEMENT OF G TUBE, MORNING MEDS HELD FOR PLACEMENT VERIFICATION, EXCORIATION OF PERINEUM AND SACRUM, DRESSINGS CHANGED CLEAN AND INTACT, R U ARM PICC RUNNING TKO NS CLEAN DRY AND INTACT, L CHEST HD CATH CLEAN INTACT, VITALS STABLE, BED IN LOWEST LOCKED POSITION, SAFETY MEASURES, CALL LIGHT WITHIN REACH.
[2020-09-22] MEDS: VANCOMYCIN 500 MG in IV D5W 100 ML IV PRN (19:09)
--- NOTE | 2020-09-22 19:30 | NUR ---
CHEMICAL PLANT TECHNICAL DIRECTOR NOTES PATIENT IN BED. NO SOB OR ANY S/S OF DISTRESS. ON VENT, TRACH SHILEY 8, AC 18, TV 500, FIO2 30%, PEEP 0. O2 SAT 95%. ALERT AND ORIENTED X1. NON-VERBAL. ON EXTERNAL TELE MONITOR, CONTROLLED A-FIB. HR 70'S. ON G-TUBE FEEDING NEPRO 65ML/HR. G-TUBE PATENT AND INTACT, RESIDUAL 15 ML. PLACEMENT CHECKED AND VERIFIED. WITH RIGHT UPPER ARM PICC RUNNING @TKO. PATENT AND FLUSHED. ALSO WITH LEFT CHEST HD CATH. NO S/S OF ANY INFECTION. BED LOCKED AND IN LOWEST POSITION. ALL SAFETY MEASURES IMPLEMENTED. CALL LIGHT WITHIN REACH. WILL CONTINUE TO MONITOR.
--- NOTE | 2020-09-22 19:35 | NUR ---
RT NOTE PT RECEIVED TRACHED WITH SHILEY 7 XLT ON MECHANICAL VENTILATION. CUFF CHECKED. HHN TX GIVEN, NO ADVERSE REACTIONS NOTED. SX DONE, TRACH SECURED AND PATENT. ALARMS ON AND AUDIBLE. NO DISTRESS NOTED AT THIS TIME. CONT. PULSE OX CONNECTED. WILL CONTINUE TO MONITOR CLOSELY T/O SHIFT. Addendum: 09/22/20 at 1935 by JIL WALTERS RT Amended: Links added.
[2020-09-22 20:00] VITALS: BP 124/44
[2020-09-22] MEDS: INSULIN GLARGINE, 100 UNIT/ML CARTRIDGE SQ SCH (21:28)
[2020-09-22] MEDS: INSULIN REGULAR, HUMAN 100 UNIT/ML 3 ML VIAL SQ PRN (23:42)
[2020-09-23] VITALS: BP 109/45
[2020-09-23] MEDS: IPRATROPIUM NEB FS 0.5 MG/2.5 ML AMPUL.NEB IH SCH ×4 (01:04→19:36)
[2020-09-23] MEDS: ALBUTEROL FS 2.5 MG/0.5 ML VIAL.NEB NEB SCH ×4 (01:04→19:36)
[2020-09-23 04:00] VITALS: BP 129/66
[2020-09-23] MEDS: METRONIDAZOLE 500 MG TABLET PO SCH ×2 (04:28→12:06)
[2020-09-23] MEDS ORDERED: Z GUARD REMEDY 4 OZ OINT TP ONE (04:36)
[2020-09-23] MEDS: NEPRO 1,000 ML BOTTLE GT PRN (05:12)
[2020-09-23] MEDS: Z GUARD REMEDY 2 OZ OINT TP PRN (05:14)
[2020-09-23] MEDS: INSULIN REGULAR, HUMAN 100 UNIT/ML 3 ML VIAL SQ PRN ×3 (05:37→17:36)
[2020-09-23] MEDS: BLOOD SUGAR DIAGNOSTIC 1 EACH STRIP IN SCH ×3 (05:37→17:36)
[2020-09-23 06:00] LABS: BASOPHILS # (AUTO) 0.1 /CMM (0.0-0.2); BASOPHILS % (AUTO) 0.4 % (0.0-2.0); EOSINOPHILS % (AUTO) 7.4 % (0.0-6.0); HEMATOCRIT 23 % (33-45); HEMOGLOBIN 7.4 g/dL (11.5-14.8); LYMPHOCYTES # (AUTO) 1.2 /CMM (0.8-4.8); LYMPHOCYTES % (AUTO) 8.1 % (20.0-44.0); MEAN CORPUSCULAR HGB CONC 32 g/dl (31.0-36.0); MEAN CORPUSCULAR VOLUME 105 fL (82-100); MONOCYTES % (AUTO) 6.9 % (2.0-12.0); NEUTROPHILS # (AUTO) 11.6 /CMM (1.8-8.9); NEUTROPHILS % (AUTO) 77.2 % (43.0-81.0); PLATELET COUNT (AUTO) 117 /CMM (150-450); RED BLOOD CELL COUNT(AUTO) 2.17 MIL/uL (4.0-5.2)
[2020-09-23 06:05] LABS: CALCIUM, SERUM 9.3 mg/dL (8.5-10.1); CARBON DIOXIDE 28 mmol/L (21-32); CHLORIDE 100 mmol/L (98-107); CREATININE 3.6 mg/dL (0.6-1.3); GLUCOSE 169 mg/dL (74-106); MAGNESIUM 2.6 mg/dL (1.8-2.4); PHOSPHORUS 3.1 mg/dL (2.5-4.9); POTASSIUM 3.8 mmol/L (3.5-5.1); SODIUM SERUM 137 mmol/L (136-145); UREA NITROGEN, BLOOD 53 mg/dL (7-18)
--- NOTE | 2020-09-23 06:57 | NUR ---
PATIENT IN BED RESTING COMFORTABLY. RESPIRATIONS EVEN AND UNLABORED. NO SOB. SPO2 100% VIA VENT SETTING PER MD. LATEST TEMP 97.7 F. ON EXTERNAL MONITOR, CONTROLLED A-FIB. HR 70S. ON G-TUBE FEEDING, TOLERATING WELL. SAFETY MEASURES PROVIDED. TRACH CARE AND WOUND CARE DONE. NO SIGNIFICANT CHANGES OF CONDITION NOTED. ALL NEEDS ATTENDED. CALL LIGHT WITHIN REACH. SIDERAILS UP X2. ENDORSED TO AM SHIFT.
--- NOTE | 2020-09-23 07:27 | NUR ---
RN TELE1 PATIENT IN BED, ON VENT TO TRACH SHILEY 8, AC 18, TV 500, FIO2 30%, PEEP 0, O2 SAT 94%, A/O X1, AWAKE, YI SPEAKING WITH SOME UZBEK, EXTERNAL TELE MONITOR IN PLACE, CONTROLLED A FIB, GENERALIZED EDEMA, DIAPER ON CLEAN DRY, BED REST, G TUBE IN PLACE NO RESIDUAL, NEPRO RUNNING AT 65ML/HR, TOLERATING WELL, SUCTIONED MOUTH, DVT PUMPS ON, SACRAL DTI DRESSING CLEAN DRY AND INTACT, BILATERAL UNDER BREAST REDNESS VISUALIZED WITH PROTECTIVE CREAM ON, R UA PICC RUNNING TKO, L CHEST HD CATH CLEAN DRY AND INTACT, PICC FLUSHES WELL, LAST TEMP REPORTED WAS 97.7, BED IN LOWEST LOCKED POSITION, SAFETY MEASURES IN PLACE, CALL LIGHT WITHIN REACH, WILL CONTINUE TO MONITOR.
[2020-09-23 08:07] VITALS: BP 125/30
[2020-09-23] MEDS: ACETYLCYSTEINE 10% SOLN 400 MG/4 ML VIAL NEB SCH ×2 (08:08→15:29)
[2020-09-23] MEDS: MEROPENEM 500 MG in IV NS 0.9% 50 ML IV SCH (08:32)
[2020-09-23] MEDS: ACIDOPHILUS/BULGARICUS 1 EACH TAB.CHEW GT SCH ×2 (08:33→17:12)
[2020-09-23] MEDS: FAMOTIDINE (20 MG) 20 MG TABLET GT SCH (08:33)
[2020-09-23] MEDS: DOCUSATE SODIUM LIQ 100 MG/10 ML UDC GT SCH (08:33)
[2020-09-23] MEDS: ACETAMINOPHEN 325 MG TABLET PO PRN (08:33)
[2020-09-23] MEDS: LORATADINE 10 MG TABLET GT SCH (08:34)
[2020-09-23] MEDS: SEVELAMER CARBONATE 800 MG POWD.PACK GT SCH ×3 (08:34→17:12)
[2020-09-23] MEDS: GABAPENTIN 100 MG CAPSULE GT SCH (08:34)
[2020-09-23] MEDS: ESCITALOPRAM OXALATE (10 MG) 10 MG TABLET GT SCH (08:34)
[2020-09-23] MEDS: LOSARTAN POTASSIUM 50 MG TABLET GT SCH (08:35)
[2020-09-23] MEDS: LEVOTHYROXINE SODIUM 25 MCG TABLET GT SCH (08:35)
[2020-09-23] MEDS: PROSOURCE / PROSTAT (PYXIS) 30 ML UDC GT SCH (08:36)
[2020-09-23] MEDS: CLOTRIMAZOLE/BETAMETASONE DIPROPIONATE 15 GM TUBE TP SCH ×2 (08:36→17:18)
[2020-09-23] MEDS: MUPIROCIN OINT 2% 22 GM TUBE SCH ×2 (08:36→21:42)
[2020-09-23] MEDS: POLYVINYL ALCOHOL 15 ML BOTTLE OP SCH ×2 (08:37→17:18)
--- NOTE | 2020-09-23 08:57 | NUR ---
television repairman note dr darden at bedside notified that h today hg 7.4 ok to give eliquis also aware that t 99.1
[2020-09-23] MEDS: APIXABAN 2.5 MG TABLET GT SCH ×2 (09:00→17:13)
[2020-09-23] MEDS: hydrOXYzine HCL SYRUP 10 MG/5 ML UDC GT PRN (09:38)
[2020-09-23 12:00] VITALS: BP 121/38
--- NOTE | 2020-09-23 12:48 | NUR ---
RN TELE1 ORAL SUCTIONING PROVIDED. PATIENT O2 SAT 99%. PATIENT TOLERATED WELL.
--- NOTE | 2020-09-23 14:26 | NUR ---
RN NOTE GAVE REPORT TO EDU, NO CHANGES SINCE THE MORNING, NO S/S OF DISTRESS.
--- NOTE | 2020-09-23 14:28 | NUR ---
RECEIVED REPORT FROM NIA FOR CONTINUITY OF CARE.
[2020-09-23 16:00] VITALS: BP 136/32
[2020-09-23] MEDS ORDERED: IPRA0.2S9 IH (17:01)
[2020-09-23] MEDS ORDERED: CLOT15CR5 TP (17:01)
[2020-09-23] MEDS ORDERED: VANC500P5 IV (17:01)
[2020-09-23] MEDS ORDERED: MERO500P IV (17:01)
[2020-09-23] MEDS ORDERED: ALBU2.5V13 NEB (17:01)
[2020-09-23] MEDS ORDERED: METR500T PO (17:01)
--- NOTE | 2020-09-23 18:13 | NUR ---
FLU/PNA VACCINE STATUS CALLED [facility] TO CLARIFY THE DATES OF FLU/PNA VACCINE SHOT IF WHEN WAS IT GIVEN.SPOKE TO CHRISTINA BARRIENTOS WHO STATED THAT MEDICAL RECORD WAS ALREADY CLOSED AND UNABLE TO GET PT'S CHART.
--- NOTE | 2020-09-23 19:00 | NUR ---
CALLED [facility] AND SPOKE TO CHRISTINA GIRALDO OF [facility].REPORT CALLED IN REGARDING PT'S DISCHARGE INSTRUCTIONS AND CONTINUATION OF PT'S IV ATB CHADD HARDIN IV WITH HD FOR 7 DAYS AND FLAGYL VIA GT.DISCHARGE PAPERS,HEALTH INSTRUCTIONS AND PRESCRIPTIONS PREPARED AND ENDORSED TO CHRISTINA LISA.
[2020-09-23 20:00] VITALS: BP 119/32
--- NOTE | 2020-09-23 21:15 | NUR ---
RN NOTES PATIENT DISCHARGE GOING TO [place] WITH STABLE VITAL SIGNS, ALERT ORIENTED X1, NO ACUTE DISTRESS NOTED UPON DISCHARGE, BREATHING UNLABORED SATURATING AT 100% ON MECHANICAL VENT SETTINGS ORDERED. DISCHARGE INSTRUCTIONS GIVEN INCLUDING HEALTH TEACHING REGARDING CONDITION AND SAFETY MEASURES & PRECAUTIONS AND INFECTION CONTROL AND MEDICATION LIST AND TEACHING. ALL BELONGINGS ACCOUNTED FOR .IV ACCESS KEPT IN, PATENT AND INTACT. PICKED UP VIA AMBULANCE IN A GURNEY ACCOMPANIED BY 2 EMT PERSONNEL IN STABLE CONDITION.PLANS EXAMINER MADE AWARE.
== END 2020-09-23 22:16 | disposition short-term general hospital (02) | DRG 870 ==
LOC: ER 19:20 → TELE-TD 23:23 → ICU 23:59 → TELE-TD 09-18 04:49 → TELE1 09-18 08:13
PROVIDERS: ADMIT Nurse Practitioner Acute Care; ATTEND Student in an Organized Health Care Education/Training Program
PROC: 5A1955Z Respiratory Ventilation, Greater than 96 Consecutive Hours (ICD-10-PCS; principal; 2020-09-14)
PROC: 05HY33Z Insertion of Infusion Device into Upper Vein, Percutaneous Approach (ICD-10-PCS; 2020-09-15)
PROC: 5A1D70Z Performance of Urinary Filtration, Intermittent, Less than 6 Hours Per Day (ICD-10-PCS; 2020-09-16)
DX: A41.9 Sepsis, unspecified organism (principal); N18.6 End stage renal disease; R53.2 Functional quadriplegia; J96.20 Acute and chronic respiratory failure, unspecified whether with hypoxia or hypercapnia; R65.21 Severe sepsis with septic shock; G93.1 Anoxic brain damage, not elsewhere classified; E44.0 Moderate protein-calorie malnutrition; I13.2 Hypertensive heart and chronic kidney disease with heart failure and with stage 5 chronic kidney disease, or end stage renal disease; Z99.11 Dependence on respirator [ventilator] status; E27.40 Unspecified adrenocortical insufficiency; L97.829 Non-pressure chronic ulcer of other part of left lower leg with unspecified severity; J98.11 Atelectasis; E87.6 Hypokalemia; E11.22 Type 2 diabetes mellitus with diabetic chronic kidney disease; E03.9 Hypothyroidism, unspecified; I25.10 Atherosclerotic heart disease of native coronary artery without angina pectoris; J44.9 Chronic obstructive pulmonary disease, unspecified; I48.91 Unspecified atrial fibrillation; D63.8 Anemia in other chronic diseases classified elsewhere; Z93.1 Gastrostomy status; Z93.0 Tracheostomy status; Z99.2 Dependence on renal dialysis; E11.40 Type 2 diabetes mellitus with diabetic neuropathy, unspecified; R13.10 Dysphagia, unspecified; K21.9 Gastro-esophageal reflux disease without esophagitis; E11.622 Type 2 diabetes mellitus with other skin ulcer; E11.65 Type 2 diabetes mellitus with hyperglycemia; G47.419 Narcolepsy without cataplexy; E66.01 Morbid (severe) obesity due to excess calories; Z79.4 Long term (current) use of insulin; Z79.51 Long term (current) use of inhaled steroids; Z79.899 Other long term (current) drug therapy; I27.20 Pulmonary hypertension, unspecified; Z86.718 Personal history of other venous thrombosis and embolism; Z87.11 Personal history of peptic ulcer disease; Z79.01 Long term (current) use of anticoagulants; Z86.19 Personal history of other infectious and parasitic diseases; I50.9 Heart failure, unspecified; Y95 Nosocomial condition; I95.3 Hypotension of hemodialysis; L30.4 Erythema intertrigo; L98.9 Disorder of the skin and subcutaneous tissue, unspecified
CPT/HCPCS: 31720; 36415; 71045-TC; 74018; 80048-TC; 80053-TC; 80061-TC; 80076-TC; 80202-TC; 82272-TC; 82533; 82962-TC; 83605-TC; 83735-TC; 84100-TC; 84443-TC; 84484-TC; 85025-TC; 85730-TC; 86706; 87040-TC; 87070-TC; 87081-TC; 87186-TC; 87340; 90935-TC; 94002-TC; 94003-TC; 94667-TC; 94668-TC; 94760-TC; 94762-TC; 94799-TC; 99082-TC; A6253; A7526; C1751; C9803; G0378; J0885; J1720; J1815; J2185; J2543; J3370; J3480; J7040; J7050; J7060; Q0177; Q9963; U0003